=== PATIENT | female | born 1980 | race Caucasian/White ===

== ENCOUNTER 2022-11-15 19:52 | Inpatient (IN) | payer BC, SELFPAY ==
--- NOTE | 2022-11-15 21:14 | P.CONHOSP_ITS ---
History of Present Illness Data of Consult Service Date: 11/15/22 Primary Care Provider: Unknown Physician HPI Reason for consult: Admission H&P Pt is a 42-year-old female with a PMH significant for?breast cancer s/p lumpectomy, overactive bladder, HTN, PTSD, anxiety, and bipolar disorder who is admitted to psychiatry unit for increasing erratic behavior, paranoia, and disorganized thought.. Patient apparently was paranoid that her was working with her therapist to keep her sick. Medical consult for admission H&P. Patient states that she has a recent history of panic attacks where she feels chest tightness/pressure and her heart racing. Patient also says she experiences episodes of diarrhea she also attributes to periods of prolonged anxiety. Currently patient has no acute medical complaints. Denies shortness of breath. Fever, chills, nausea, vomiting, abdominal pain. Patient apparently is not on any known home medications. Review of Systems Review of Systems: Patient denies acute medical complaints at this time [facility] Social History Housing: House Do you presently have visiting nurse or other home services: No Patient Tobacco Use Status: Current everyday Tobacco user Tobacco use type: Cigarette Cigarette Packs Per Day: 1 Cigarettes Per Day: 20.0 Years Smoked: 10-15 Smoked in Last 30 Days: No e-Cigarette/Vaping Use: Currently Using Frequency of e-Cigarette/Vaping Use: daily 5% nicotine Patient Interested in Nicotine Replacement: Yes (doesn't like gum or lozenge) Patient Given Instructions on How to Stop Smoking: No (not interested in quitting the vape pen? No. Smoked cigs- pen lost) Second Hand Smoke Exposure: No Use of substances other than those prescribed or required for medical reasons: No Currently Displaying Signs/Symptoms of Drug Intoxication Withdrawal: No Any prior treatment program specific to substance use: No Have you been hit, kicked, punched, or otherwise hurt by someone within the past year? If so, by whom?: No Do you feel safe in your current relationship?: Yes Is there a partner from a previous relationship who is making you feel unsafe now?: No Are you made to feel afraid or neglected: No Advance Directives: No Advance Directives Information Provided: No Do you have thoughts of harming others: None Do you have a plan to hurt others: No Plan Recently lost weight without trying: No How much weight loss: Not applicable Eating poorly because of decreased appetite: No Nutrition screen score: 0 Nutrition Risks: No Nutritional Risk Patient : No : No Poor oral hygiene: No Meds Allergies Allergy/AdvReac Type Severity Reaction Status Date / Time bupropion [From Wellbutrin] Allergy Unknown Verified 11/15/22 23:35 Active Medications: Current Medications Acetaminophen (Acetaminophen 325 Mg Tablet) 650 mg PO Q6H PRN PRN Reason: Headache/Pain Mild Scale (1-3) Al Hydroxide/Mg Hydroxide (Magnesium Hydrox/Alum Hydrox 30 Ml Oral.Susp) 30 ml PO Q6H PRN PRN Reason: Heartburn/Nausea Hydroxyzine HCl (Hydroxyzine Hcl 25 Mg Tablet) 25 mg PO Q6H PRN PRN Reason: Anxiety Magnesium Hydroxide (Milk Of Magnesia 30 Ml Oral.Susp) 30 ml PO DAILY PRN PRN Reason: Constipation Olanzapine (Olanzapine 5 Mg Tablet) 5 mg PO Q4H PRN PRN Reason: Psychosis Trazodone HCl (Trazodone Hcl 50 Mg Tablet) 50 mg PO BEDTIME MRX1 PRN PRN Reason: Insomnia Home Medications Medication Instructions Recorded Confirmed Last Taken Type No Known Home Meds 11/15/22 11/15/22 Unknown History Physical Exam Vital Signs and Narrative: Vital Signs: Constitutional: Alert, anxious, emotionally labile in no acute distress. Mental Status: Oriented to person, place and time. Eyes: Pupils are equal, round, and reactive to light. Ear, Nose, and Throat: Oropharynx clear, mucous membranes moist. Ears and nose without deformities. Trachea midline. Respiratory: Clear to auscultation bilaterally. No wheezing, rales, or rhonchi. Cardiovascular: S1, S2 tachycardic. No murmurs, rubs, or gallops. Gastrointestinal: Abdomen soft, non-tender, non-distended. Normal bowel sounds. Neurologic: Cranial nerves II-XII are grossly intact bilaterally. No focal neurological deficits. Moves all extremities spontaneously. Skin: No rashes or lesions noted. Musculoskeletal: No cyanosis or clubbing. Extremities: No edema. Psychiatric: Anxious, emotionally labile. Results Labs 11/16/22 09:05 Assessment and Plan (1) Routine history and physical examination of adult: Status: Acute Plan Pt is a 42-year-old female with a PMH significant for?breast cancer s/p lumpectomy, overactive bladder, HTN, PTSD, anxiety, and bipolar disorder who is admitted to [facility] psychiatry unit for increasing depression and anxiety. Medical consult for admission H&P. Patient states that she has a recent history of panic attacks where she feels chest tightness/pressure and her heart racing. Patient also says she experiences episodes of diarrhea she also attributes to periods of prolonged anxiety. Currently patient has no acute medical complaints. Mood disorder Plan as per Psychiatry HTN Patient's initial BP 153/108, diastolic BP at [facility] also over 110 Will start patient amlodipine 5 mg daily Monitor BP Thank you for allowing us to participate in the care of this patient. Signing off at this time. Please let us know if there are any acute complaints or questions Time Spent With Patient Time: Total time managing care of this patient today ____ minutes.
[2022-11-15 21:56] VITALS: BMI 22.4
[2022-11-15] MEDS: traZODone HCL 50 MG TABLET PO (22:05)
--- NOTE | 2022-11-16 02:07 | PC.ADMIT ---
Yisel is a 42 year old female admitted to [facility] for safety, observation and stabilization, diagnosis Bipolar Disorder. She arrived on the unit on a CV at 2009 via stretcher in the company of EMT staff from [facility]. Yisel was assessed on 11/15/22 @[facility] ED after presenting self, stating I am in crisis. She struggled to engage w/staff & presented w/mumbled speech, DT presentation, and collateral contact w/pts sister & she was recommended for admission. Yisel denies the Bipolar diagnosis and has struggled to accept, DT this she has been resistant to meds & treatment. Yisel recently completed ECT on 10/29/22 & family reports she has been decompensating since, her relapse increased when she exhibited signs of paranoia on 11/13 beleiving that her was working with her therapist to keep her sick. Recently unemployed after being fired from [employer] due to not being able to keep up w/the demands of the business. Current risk factors include noncompliance with treatment, [facility] of [facility], non-adherence with medications, paranoia, & insomnia. She presents tonight alert/oriented, independent with ADL', ad-colleen with steady gait, disorganized, and paranoid, cooperative with the admission process, no scheduled HS meds, body audit/skin check completed, MD Sandoval notified of admission and orders obtained, hospitalist notified and physical assessment completed, no acute medical issues, denies SI, although stated passive, if this treatment doesn't work, I'll figure something out. verbalized that she is wiling to contact staff, feels safe on the unit, denies AVH/HI. Yisel was provided with a snack, oriented to the unit/assigned room, she called her sister, was given trazadone for insomnia, and went to bed. Yisel was placed on 15 min unit safety observation. Admission labs due morning of 11/16.
[2022-11-16 06:00] VITALS: BP 153/108; PULSE 108; RESP 18; TEMP 36.6; O2SAT 100
[2022-11-16 09:50] LABS: Alanine Aminotransferase 16 U/L (0-31); Albumin Level 4.3 g/dL (3.5-5.0); Alkaline Phosphatase 58 U/L (39-117); Anion Gap 14 (12-20); Aspartate Amino Transferase 19 U/L (5-31); Bilirubin Total 0.6 mg/dL (0.0-1.0); Blood Urea Nitrogen 7 mg/dL (9-16); Calcium 10.1 mg/dL (8.4-10.2); Carbon Dioxide 23 mmol/L (22-29); Chloride 109 mmol/L (96-108); Cholesterol 172 mg/dL; Creatinine Clr Calc Pharmacy 73.2; Estimated Glomerular Filt Rate > 60; Glucose Fasting 111 mg/dL (60-99); HDL Cholesterol 61 mg/dL; LDL Cholesterol Calculated 103 mg/dl; Potassium 3.8 mmol/L (3.3-5.1); Sodium 142 mmol/L (135-145); Total Protein 6.8 g/dL (6.5-8.0); Triglycerides 40 mg/dL
[2022-11-16 10:10] LABS: Estimated Average Glucose 77 mg/dL; Hemoglobin A1c % 4.3 %
--- NOTE | 2022-11-16 13:29 | P.HPPS_ITS ---
HPI Date of Service: 11/16/22 Chief Complaint: Bipolar Disorder Sources of Information: patient interviewed, chart reviewed and crisis/core team assessment reviewed Additional Sources of Information: -Kalyan HPI Subjective Notes: Goldstein Warning and 3 Day Narrative: Patient is a 42 year old female with hx of bipolar d/o who self presented to [facility] ER after calling 911 and reporting she was in crisis . When arrived to ER, pt struggled to engage with staff and presented with mumbled speech. Collateral was obtained from and sister. T/W and social work supervisor met with patient for admission assessment. Patient presents as calm and cooperative but tearful. She admits to drinking ETOH in excess. (5-6 beers a day); Patient stated, I don't think anything is wrong with me. I have unprocessed trauma and need CBT and DBT. I'm a co-dependent narcissist. Patient reports she has always been paranoid . Patient asked if there was a recording device in the room. Patient reports having suicidal ideation. Patient stated, I don't want to be given medication because I would take them all and try to sleep forever . Patient denies HI/VH/AH at this time. T/W spoke with patients (Kalyan). Per pt's (Kalyan); pt recently had [facility] at [facility], last of which was 10/29/22, he believes this contributed to her manic episode. He reports over the last 2 weeks patient has become paranoid and accusing her of conspiring with her therapist to keep her sick . He reports she has never attempted suicide but has always made suicidal statements. Patient has been psychiatrically hospitalized twice. Pt has a hx of bipolar d/o and has struggled to accept her dx; has been resistant to medications and treatment. Patient reports positive effects when patient was on lithium in the past. Past Psychiatric History: Hx of ketamine, ECT 10/2022 No suicide attempts. 2 inpatient hospitalizations. Medical Evaluation Reviewed: Yes PMF Family History: unknown Social History: for 20 years. No children. Substance History: ETOH use. Trauma History: Emotional trauma from parents Diagnostics Vital Signs (24Hr): Vital Signs - 24 hr 11/16/22 06:00 Temperature 97.8 F Pulse Rate 108 H Respiratory Rate 18 Blood Pressure 153/108 H Pulse Oximetry 100 Oxygen Delivery Method Room Air BMI result Body Mass Index 22.4 Labs 11/16/22 09:05 Labs: Laboratory Results - last 48 hr 11/16/22 11/16/22 09:05 09:05 Sodium 142 Potassium 3.8 Chloride 109 H Carbon Dioxide 23 Anion Gap 14 BUN 7 L Creatinine 0.74 Estim Creat Clear Calc 73.2 Estimated GFR > 60 Fasting Glucose 111 H Estimat Average Glucose 77 Hemoglobin A1c % 4.3 Calcium 10.1 Total Bilirubin 0.6 AST 19 ALT 16 Alkaline Phosphatase 58 Total Protein 6.8 Albumin 4.3 Triglycerides 40 Cholesterol 172 LDL Cholesterol, Calc 103 HDL Cholesterol 61 Meds/Allergies Meds Home Medications Medication Instructions Recorded Confirmed Type No Known Home Meds 11/15/22 11/15/22 History Allergies Allergies Allergy/AdvReac Type Severity Reaction Status Date / Time bupropion [From Wellbutrin] Allergy Unknown Verified 11/15/22 23:35 Mental Status Exam Mental Status Exam Narrative: Pt is alert and oriented; behavior is cooperative and calm; patient is not in distress; dressed in casual attire with good hygiene; mood is described as anxious ; eye contact appropriate; Speech is normal rate, volume and prosody and not pressured; no psychomotor agitation/retardation present; thought process is organized; Thought content is circumstantial; otherwise pertinent to relevant topics. Presents with paranoid delusional content; denies any HI. Reports suicidal ideation. There is no evidence of perceptual disturbance. Patients insight and judgment are poor. Assessment & Plan Assessment & Plan (1) Bipolar 1 disorder: Status: Acute Code(s): F31.9 - Bipolar disorder, unspecified Plan Patient is a 42 year old female with hx of bipolar d/o who self presented to [facility] ER after calling 911 and reporting she was in crisis . When arrived to ER, pt struggled to engage with staff and presented with mumbled speech. Collateral was obtained from and sister. Plan: 3 day 15 minute checks CIWA Obtain collateral Folic acid 1mg PO daily Multivitamin 1 tab PO daily Thiamine 100mg PO daily Ativan 0.5mg PO BID Zyprexa 5mg PO BID [place] 300mg PO BID (pt's reported lithium helpful in the past) Patient educated on: diagnosis, medication risk/benefits, substance abuse and therapeutic strategies Informed Consent: further education needed Reason for continued inpatient stay Substantial Risk for: harm to self and med/psych decompensation Statement Statement: I have reviewed the history and physical and performed a pertinent examination on my patient. No changes have occurred unless specified. If the History and Physical was not performed prior to admission, the Hospitalist's service will be consulted for completing the admission physical. Time Spent With Patient Time: Total time managing care of this patient today ____ minutes.
[2022-11-16 15:30] VITALS: BP 177/110; PULSE 106; RESP 18; O2SAT 99
[2022-11-16] MEDS: amLODIPine Besylate 5 MG TABLET PO (15:40)
[2022-11-16] MEDS: Multivitamin TABLET 1 TAB PO (15:47)
[2022-11-16] MEDS: Folic Acid 1 MG TABLET PO (15:47)
[2022-11-16] MEDS: LORazepam 0.5 MG TABLET PO ×2 (15:48→20:42)
[2022-11-16] MEDS: Thiamine HCL 100 MG TABLET PO (15:48)
--- NOTE | 2022-11-16 16:19 | PC.NURSE ---
Patient with elevated blood pressure. MARY Gee [employer] [facility] CASTILLO notified via tiger text.
[2022-11-16] MEDS: Lithium Carbonate ER 300 MG TABLET.ER PO ×2 (16:50→20:42)
[2022-11-16 16:59] VITALS: BP 163/98; PULSE 98; RESP 18
[2022-11-16] MEDS: Nicotine Polacrilex 2 MG GUM BUCCAL ×3 (18:29→22:23)
[2022-11-16] MEDS: Cariprazine HCl 1.5 MG CAPSULE PO (20:41)
[2022-11-16 20:50] VITALS: BP 146/104; PULSE 100; RESP 16; TEMP 36.2; O2SAT 99
[2022-11-16] MEDS: Loperamide HCl 2 MG CAPSULE PO (21:09)
[2022-11-16] MEDS: hydrOXYzine HCL 25 MG TABLET PO (21:09)
[2022-11-16] MEDS: Acetaminophen 325 MG TABLET 650 MG PO (22:28)
[2022-11-17] MEDS: LORazepam 0.5 MG TABLET PO ×2 (08:26→20:42)
[2022-11-17] MEDS: Lithium Carbonate ER 300 MG TABLET.ER PO (08:26)
[2022-11-17] MEDS: Folic Acid 1 MG TABLET PO (08:27)
[2022-11-17] MEDS: Multivitamin TABLET 1 TAB PO (08:27)
[2022-11-17] MEDS: amLODIPine Besylate 5 MG TABLET PO ×2 (08:27→13:32)
[2022-11-17] MEDS: Thiamine HCL 100 MG TABLET PO (08:27)
[2022-11-17] MEDS: Cariprazine HCl 1.5 MG CAPSULE PO (08:28)
[2022-11-17 08:30] VITALS: BP 177/101; PULSE 120; RESP 18; TEMP 36.4; O2SAT 97
[2022-11-17] MEDS: Nicotine Polacrilex 2 MG GUM BUCCAL ×2 (08:37→20:48)
[2022-11-17 10:30] VITALS: BP 161/104; RESP 18; O2SAT 110
--- NOTE | 2022-11-17 10:34 | P.PNPSI_ITS ---
Subjective Subjective Date of Service: 11/17/22 Reason For Visit: Bipolar Disorder Subjective Notes: Conditional Voluntary Interim History: Reviewed in team and with Dr. Obando. Patient presents tearful during 1:1. Patient continues to have circumstantial thought content and paranoid delusions. Patient stated, I feel like this place is a place to make people more assertive. I know that sounds delusional . Patient reports she want to live but knows if I have medications then I'll take them all . Patient reports she feels safe on the unit. Retracted 3 day. Medication Compliance: Yes Side effects from medications: No Attending Groups: Yes Review of Systems Review of Systems Patient denies acute medical complaints at this time Constitutional: Reports as per HPI Eyes: Reports as per HPI Reports as per HPI Cardiovascular: Reports as per HPI Respiratory: Reports as per HPI Gastrointestinal: Reports as per HPI Musculoskeletal: Reports as per HPI Skin/Breast: Reports as per HPI Reports as per HPI Psychiatric: Reports as per HPI Endocrine: Reports as per HPI Hematologic/Lymphatic: Reports as per HPI Allergic/Immunologic: Reports as per HPI Mental Status Exam Mental Status Exam Narrative: Pt is alert and oriented; behavior is cooperative and calm; patient is not in distress; dressed in casual attire with good hygiene; mood is described as anxious ; eye contact appropriate; Speech is normal rate, volume and prosody and not pressured; no psychomotor agitation/retardation present; thought process is organized; Thought content is circumstantial; otherwise pertinent to relevant topics. Presents with paranoid delusional content; denies any HI. Reports suicidal ideation. There is no evidence of perceptual disturbance. Patients insight and judgment are poor. Diagnostics Vital Signs (24Hr): Vital Signs - 24 hr 11/16/22 15:30 11/16/22 16:59 11/16/22 20:50 Temperature 97.1 F Pulse Rate 106 H 98 100 Respiratory Rate 18 18 16 Blood Pressure 177/110 H 163/98 H 146/104 H Pulse Oximetry 99 99 Oxygen Delivery Method Room Air Room Air BMI result Body Mass Index 22.4 Labs 11/16/22 09:05 Labs: Laboratory Results - last 48 hr 11/16/22 11/16/22 09:05 09:05 Sodium 142 Potassium 3.8 Chloride 109 H Carbon Dioxide 23 Anion Gap 14 BUN 7 L Creatinine 0.74 Estim Creat Clear Calc 73.2 Estimated GFR > 60 Fasting Glucose 111 H Estimat Average Glucose 77 Hemoglobin A1c % 4.3 Calcium 10.1 Total Bilirubin 0.6 AST 19 ALT 16 Alkaline Phosphatase 58 Total Protein 6.8 Albumin 4.3 Triglycerides 40 Cholesterol 172 LDL Cholesterol, Calc 103 HDL Cholesterol 61 Medications Medications Current Medications Acetaminophen (Acetaminophen 325 Mg Tablet) 650 mg PO Q6H PRN PRN Reason: Headache/Pain Mild Scale (1-3) Last Admin: 11/16/22 22:28 Dose: 650 mg Al Hydroxide/Mg Hydroxide (Magnesium Hydrox/Alum Hydrox 30 Ml Oral.Susp) 30 ml PO Q6H PRN PRN Reason: Heartburn/Nausea Amlodipine Besylate (Amlodipine Besylate 5 Mg Tablet) 5 mg PO DAILY [facility]; Protocol Last Admin: 11/17/22 08:27 Dose: 5 mg Cariprazine (Cariprazine Hcl 1.5 Mg Capsule) 1.5 mg PO DAILY [facility] Last Admin: 11/17/22 08:28 Dose: 1.5 mg Folic Acid (Folic Acid 1 Mg Tablet) 1 mg PO DAILY [facility] Last Admin: 11/17/22 08:27 Dose: 1 mg Hydroxyzine HCl (Hydroxyzine Hcl 25 Mg Tablet) 25 mg PO Q6H PRN PRN Reason: Anxiety Last Admin: 11/16/22 21:09 Dose: [address] [place] Carbonate ([place] Carbonate Er 300 Mg Tablet.Er) 300 mg PO BID [facility] Last Admin: 11/17/22 08:26 Dose: 300 mg Loperamide HCl (Loperamide Hcl 2 Mg Capsule) 2 mg PO Q4H PRN PRN Reason: Diarrhea Last Admin: 11/16/22 21:09 Dose: 2 mg Lorazepam (Lorazepam 0.5 Mg Tablet) 0.5 mg PO BID [facility] Last Admin: 11/17/22 08:26 Dose: 0.5 mg Magnesium Hydroxide (Milk Of Magnesia 30 Ml Oral.Susp) 30 ml PO DAILY PRN PRN Reason: Constipation Multivitamins/Vitamin C (Multivitamin Tablet) 1 tab PO DAILY [facility] Last Admin: 11/17/22 08:27 Dose: 1 tab Nicotine Polacrilex (Nicotine Polacrilex 2 Mg Gum) 2 mg BUCCAL Q2H PRN PRN Reason: Nicotine Cravings Last Admin: 11/17/22 08:37 Dose: 2 mg Nicotine Polacrilex (Nicotine Polacrilex Lozenge 4 Mg Lozenge) 4 mg BUCCAL Q2H PRN PRN Reason: Nicotine Cravings Thiamine HCl (Thiamine Hcl 100 Mg Tablet) 100 mg PO DAILY JAKE Last Admin: 11/17/22 08:27 Dose: 100 mg Trazodone HCl (Trazodone Hcl 50 Mg Tablet) 50 mg PO BEDTIME MRX1 PRN PRN Reason: Insomnia Last Admin: 11/15/22 22:05 Dose: 50 mg Allergies Allergies Allergy/AdvReac Type Severity Reaction Status Date / Time bupropion [From Wellbutrin] Allergy Unknown Verified 11/15/22 23:35 Assessment & Plan Assessment & Plan (1) Bipolar 1 disorder: Status: Acute Code(s): F31.9 - Bipolar disorder, unspecified Plan Patient is a 42 year old female with hx of bipolar d/o who self presented to [facility] ER after calling 911 and reporting she was in crisis . When arrived to ER, pt struggled to engage with staff and presented with mumbled speech. Collateral was obtained from and sister. Plan: CV 15 minute checks CIWA Obtain collateral Folic acid 1mg PO daily Multivitamin 1 tab PO daily Thiamine 100mg PO daily Ativan 0.5mg PO BID Increase: Vraylar 3mg PO daily [place] 450mg PO BID 11/17: Patient continues to have circumstantial thought content and paranoid delusions. Patient reports she want to live but knows if I have medications then I'll take them all . Patient reports she feels safe on the unit. Retracted 3 day. Will increase lithium and vraylar doses. Patient aware and is in agreement. Patient educated on: diagnosis, medication risk/benefits and therapeutic strategies Informed Consent: further education needed Reason for continued inpatient stay Substantial Risk for: harm to self and med/psych decompensation Time Spent With Patient Time: Total time managing care of this patient today ____ minutes.
[2022-11-17] MEDS: Nicotine Polacrilex Lozenge 4 MG LOZENGE BUCCAL (11:21)
--- NOTE | 2022-11-17 12:45 | P.EN_ITS ---
Documented by User: ANNA Walters 11/17/22 12:47 Event Note Date of Service: 11/17/22 Event Note: Patient's blood pressure continues to be elevated last reading this morning was 177/101. Patient will be given 5 mg amlodipine today, will increase amlodipine to 10 mg daily starting tomorrow. Patient states that she used to be on guanfacine and last took approximately in June when she was in [place]. Will continue with amlodipine for now. Will consider guanfacine if she remains hypertensive. Time Spent With Patient Time: Total time managing care of this patient today ____ minutes. Documented by User: Mary Kramer MD 11/17/22 16:21 Event Note Date of Service: 11/17/22
[2022-11-17 15:00] VITALS: BP 150/105; PULSE 114; RESP 18
[2022-11-17 20:19] VITALS: BP 140/105; PULSE 99; RESP 20; TEMP 36.9; O2SAT 97
[2022-11-17] MEDS: Lithium Carbonate ER 450 MG TABLET.ER PO (20:42)
[2022-11-18] MEDS: Nicotine Polacrilex 2 MG GUM BUCCAL (00:45)
[2022-11-18] MEDS: hydrOXYzine HCL 25 MG TABLET PO (01:33)
[2022-11-18] MEDS: traZODone HCL 50 MG TABLET PO ×3 (02:09→22:37)
[2022-11-18 08:31] VITALS: BP 133/103; PULSE 108; RESP 20; TEMP 36.7; O2SAT 100
[2022-11-18] MEDS: Folic Acid 1 MG TABLET PO (08:55)
[2022-11-18] MEDS: Cariprazine HCl 3 MG CAPSULE PO (08:55)
[2022-11-18] MEDS: Thiamine HCL 100 MG TABLET PO (08:55)
[2022-11-18] MEDS: Multivitamin TABLET 1 TAB PO (08:55)
[2022-11-18] MEDS: Lithium Carbonate ER 450 MG TABLET.ER PO (08:55)
[2022-11-18] MEDS: LORazepam 0.5 MG TABLET PO ×2 (08:56→20:52)
[2022-11-18] MEDS: amLODIPine Besylate 10 MG TABLET PO (08:56)
--- NOTE | 2022-11-18 09:48 | HO.PSYCHPN ---
Documented by User: Rebekah Gee NP 11/18/22 16:30 Subjective Subjective Date of Service: 11/18/22 Reason For Visit: Bipolar Disorder Subjective Notes: Conditional Voluntary Interim History: Reviewed in team and with Dr. Obando. Dr. Obando and T/W met with patient and sister today. Pt continues with racing thoughts and circumstantial thought content. Patient reports she understands why she needs to be in the hospital but I don't like to think I have bipolar d/o . Denies suicidal ideation at this time. Greenbriar to be increased to 600mg PO BID; patient aware. CIWA D/C'd d/t scoring low and no withdrawal symptoms. 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 with patients consent. Medication Compliance: Yes Side effects from medications: No Attending Groups: Yes Review of Systems Review of Systems Patient denies acute medical complaints at this time Constitutional: Reports as per HPI Eyes: Reports as per HPI Reports as per HPI Cardiovascular: Reports as per HPI Respiratory: Reports as per HPI Gastrointestinal: Reports as per HPI Genitourinary: Reports as per HPI Musculoskeletal: Reports as per HPI Skin/Breast: Reports as per HPI Reports as per HPI Psychiatric: Reports as per HPI Endocrine: Reports as per HPI Hematologic/Lymphatic: Reports as per HPI Allergic/Immunologic: Reports as per HPI Mental Status Exam Mental Status Exam Narrative: Pt is alert and oriented; behavior is cooperative and calm; patient is not in distress; dressed in casual attire with good hygiene; mood is described as anxious ; eye contact appropriate; Speech is normal rate, volume and prosody and not pressured; no psychomotor agitation/retardation present; thought process is organized; Thought content is circumstantial; otherwise pertinent to relevant topics. Presents with paranoid delusional content; denies any HI/SI. There is no evidence of perceptual disturbance. Patients insight and judgment are poor. Diagnostics Vital Signs (24Hr): Vital Signs - 24 hr 11/17/22 10:30 11/17/22 15:00 11/17/22 20:19 Temperature 98.4 F Pulse Rate 114 H 99 Respiratory Rate 18 18 20 Blood Pressure 161/104 H 150/105 H 140/105 H Pulse Oximetry 110 H 97 Oxygen Delivery Method Room Air 11/18/22 08:31 Temperature 98.1 F Pulse Rate 108 H Respiratory Rate 20 Blood Pressure 133/103 H Pulse Oximetry 100 Oxygen Delivery Method Room Air BMI result Body Mass Index 22.4 Labs 11/16/22 09:05 Labs: Laboratory Results - last 48 hr 11/16/22 11/16/22 09:05 09:05 Sodium 142 Potassium 3.8 Chloride 109 H Carbon Dioxide 23 Anion Gap 14 BUN 7 L Creatinine 0.74 Estim Creat Clear Calc 73.2 Estimated GFR > 60 Fasting Glucose 111 H Estimat Average Glucose 77 Hemoglobin A1c % 4.3 Calcium 10.1 Total Bilirubin 0.6 AST 19 ALT 16 Alkaline Phosphatase 58 Total Protein 6.8 Albumin 4.3 Triglycerides 40 Cholesterol 172 LDL Cholesterol, Calc 103 HDL Cholesterol 61 Medications Medications Current Medications Acetaminophen (Acetaminophen 325 Mg Tablet) 650 mg PO Q6H PRN PRN Reason: Headache/Pain Mild Scale (1-3) Last Admin: 11/16/22 22:28 Dose: 650 mg Al Hydroxide/Mg Hydroxide (Magnesium Hydrox/Alum Hydrox 30 Ml Oral.Susp) 30 ml PO Q6H PRN PRN Reason: Heartburn/Nausea Amlodipine Besylate (Amlodipine Besylate 10 Mg Tablet) 10 mg PO DAILY [facility]; Protocol Last Admin: 11/18/22 08:56 Dose: 10 mg Cariprazine (Cariprazine Hcl 3 Mg Capsule) 3 mg PO DAILY [facility] Last Admin: 11/18/22 08:55 Dose: 3 mg Folic Acid (Folic Acid 1 Mg Tablet) 1 mg PO DAILY [facility] Last Admin: 11/18/22 08:55 Dose: 1 mg Hydroxyzine HCl (Hydroxyzine Hcl 25 Mg Tablet) 25 mg PO Q6H PRN PRN Reason: Anxiety Last Admin: 11/18/22 01:33 Dose: 25 mg [place] Carbonate ([place] Carbonate Er 450 Mg Tablet.Er) 450 mg PO BID [facility] Last Admin: 11/18/22 08:55 Dose: 450 mg Loperamide HCl (Loperamide Hcl 2 Mg Capsule) 2 mg PO Q4H PRN PRN Reason: Diarrhea Last Admin: 11/16/22 21:09 Dose: 2 mg Lorazepam (Lorazepam 0.5 Mg Tablet) 0.5 mg PO BID [facility] Last Admin: 11/18/22 08:56 Dose: 0.5 mg Magnesium Hydroxide (Milk Of Magnesia 30 Ml Oral.Susp) 30 ml PO DAILY PRN PRN Reason: Constipation Multivitamins/Vitamin C (Multivitamin Tablet) 1 tab PO DAILY [facility] Last Admin: 11/18/22 08:55 Dose: 1 tab Nicotine Polacrilex (Nicotine Polacrilex 2 Mg Gum) 2 mg BUCCAL Q2H PRN PRN Reason: Nicotine Cravings Last Admin: 11/18/22 00:45 Dose: 2 mg Nicotine Polacrilex (Nicotine Polacrilex Lozenge 4 Mg Lozenge) 4 mg BUCCAL Q2H PRN PRN Reason: Nicotine Cravings Last Admin: 11/17/22 11:21 Dose: 4 mg Thiamine HCl (Thiamine Hcl 100 Mg Tablet) 100 mg PO DAILY [facility] Last Admin: 11/18/22 08:55 Dose: 100 mg Trazodone HCl (Trazodone Hcl 50 Mg Tablet) 50 mg PO BEDTIME MRX1 PRN PRN Reason: Insomnia Last Admin: 11/18/22 02:09 Dose: 50 mg Allergies Allergies Allergy/AdvReac Type Severity Reaction Status Date / Time bupropion [From Wellbutrin] Allergy Unknown Verified 11/15/22 23:35 Assessment & Plan Assessment & Plan (1) Bipolar 1 disorder: Status: Acute Code(s): F31.9 - Bipolar disorder, unspecified Plan Patient is a 42 year old female with hx of bipolar d/o who self presented to [facility] ER after calling 911 and reporting she was in crisis . When arrived to ER, pt struggled to engage with staff and presented with mumbled speech. Collateral was obtained from and sister. Plan: CV 15 minute checks Obtain collateral Ativan 0.5mg PO BID Vraylar 3mg PO daily Increase: Greenbriar 600mg PO BID DC: Folic acid 1mg PO daily Multivitamin 1 tab PO daily Thiamine 100mg PO daily CIWA 11/17: Patient continues to have circumstantial thought content and paranoid delusions. Patient reports she want to live but knows if I have medications then I'll take them all . Patient reports she feels safe on the unit. Retracted 3 day. Will increase lithium and vraylar doses. Patient aware and is in agreement. 11/18: Dr. Obando and T/W met with patient and sister today. Pt continues with racing thoughts and circumstantial thought content. Denies suicidal ideation. [place]briar to be increased to 600mg PO BID; patient aware. CIWA D/C'd d/t scoring low and no withdrawal symptoms. 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 Patient educated on: diagnosis, medication risk/benefits, substance abuse and therapeutic strategies Guardian/Caregiver educated on: diagnosis, medication risk/benefits, substance abuse and therapeutic strategies Informed Consent: further education needed Reason for continued inpatient stay Substantial Risk for: med/psych decompensation Time Spent With Patient Time: Total time managing care of this patient today ____ minutes. Documented by User: Gordon Obando MD 11/18/22 21:27 Subjective Subjective Reason For Visit: Bipolar Disorder Diagnostics Labs 11/16/22 09:05 Assessment & Plan Assessment & Plan (1) Bipolar 1 disorder: Status: Acute Code(s): F31.9 - Bipolar disorder, unspecified Plan Patient is a 42 year old female with hx of bipolar d/o who self presented to [facility] ER after calling 911 and reporting she was in crisis . When arrived to ER, pt struggled to engage with staff and presented with mumbled speech. Collateral was obtained from and sister. Plan: CV 15 minute checks Obtain collateral Ativan 0.5mg PO BID Vraylar 3mg PO daily Increase: [place] 600mg PO BID DC: Folic acid 1mg PO daily Multivitamin 1 tab PO daily Thiamine 100mg PO daily CIWA 11/17: Patient continues to have circumstantial thought content and paranoid delusions. Patient reports she want to live but knows if I have medications then I'll take them all . Patient reports she feels safe on the unit. Retracted 3 day. Will increase lithium and vraylar doses. Patient aware and is in agreement. 11/18: Dr. Obando and T/W met with patient and sister today. Pt continues with racing thoughts and circumstantial thought content. Denies suicidal ideation. Greenbriar to be increased to 600mg PO BID; patient aware. CIWA D/C'd d/t scoring low and no withdrawal symptoms. 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 Reason for continued inpatient stay Substantial Risk for: inability to function and rapid decompensation Time Spent With Patient Time: Total time managing care of this patient today _35___ minutes.
[2022-11-18 10:01] VITALS: BP 144/108; PULSE 115
--- NOTE | 2022-11-18 10:01 | PC.NURSE ---
Patients recheck of Blood pressure after morning atihypertensive was 144/108 with a HR of 115. Rebekah Gee notified. Rebekah had this RN notify [facility]. No new orders at this time.
[2022-11-18 11:31] VITALS: BMI 22.0
[2022-11-18 12:25] VITALS: BP 135/90; PULSE 99
--- NOTE | 2022-11-18 12:37 | PM.EVENT ---
Event Note Date of Service: 11/18/22 Event Note: Blood pressure more controlled on my exam at 135/90, HR 99. She has been anxious/aggitated and was previously taking guanfacine for primary management of ADD which does also help BP. At this time, blood pressure is reasonably controlled, patient is asymptomatic, and further management of anxiety/aggitation should be pursued as this will help lower her blood pressure. No further antihypertensive management advised at this time. Continue amlodipine 10mg. Continue working on coping strategies and distraction techniques. Outpt follow up should be pursued as well. Should also follow up with [facility] for management of perimenopause which could be contirbutory as well. Please reach out if further questions, will check blood pressures. Time Spent With Patient Time: Total time managing care of this patient today ____ minutes.
[2022-11-18] MEDS: Nicotine Polacrilex Lozenge 4 MG LOZENGE BUCCAL ×3 (13:08→22:37)
[2022-11-18] MEDS: Lithium Carbonate 300 MG TABLET PO (14:34)
[2022-11-18 15:54] VITALS: BP 176/110; PULSE 123
[2022-11-18] MEDS: Acetaminophen 325 MG TABLET 650 MG PO (17:07)
[2022-11-18 19:21] VITALS: BP 150/98; PULSE 110; RESP 18; TEMP 36.1; O2SAT 100
[2022-11-18] MEDS: Lithium Carbonate ER 300 MG TABLET.ER PO (20:52)
[2022-11-18 22:35] VITALS: BP 156/108; PULSE 106
[2022-11-18] MEDS: Magnesium Hydrox/Alum Hydrox 30 ML ORAL.SUSP PO (22:40)
[2022-11-19] MEDS: Nicotine Polacrilex Lozenge 4 MG LOZENGE BUCCAL ×3 (02:26→17:49)
[2022-11-19] MEDS: traZODone HCL 100 MG TABLET PO (03:18)
[2022-11-19 06:00] VITALS: BP 132/86; PULSE 83; RESP 16; TEMP 36.2; O2SAT 100
[2022-11-19] MEDS: Cariprazine HCl 3 MG CAPSULE PO (08:30)
[2022-11-19] MEDS: amLODIPine Besylate 10 MG TABLET PO (08:30)
[2022-11-19] MEDS: Lithium Carbonate ER 300 MG TABLET.ER 600 MG PO ×2 (08:30→20:49)
[2022-11-19] MEDS: LORazepam 0.5 MG TABLET PO ×2 (08:30→20:48)
--- NOTE | 2022-11-19 10:50 | HO.PSYCHPN ---
Documented by User: Rebekah Gee NP 11/19/22 16:51 Subjective Subjective Date of Service: 11/19/22 Reason For Visit: Bipolar Disorder Subjective Notes: 3 Day Interim History: Reviewed in team and with Dr. Obando. Pt continues with racing thoughts and circumstantial thought content. Patient reports she not sleeping well at night. Patient comparing her life to the Book of [employer]. Patient signed 3 day last night; stated, if I don't feel better on Tuesday then I'll retract it and stay longer . Medication Compliance: Yes Side effects from medications: No Attending Groups: Yes Review of Systems Review of Systems Patient denies acute medical complaints at this time Constitutional: Reports as per HPI Eyes: Reports as per HPI Reports as per HPI Cardiovascular: Reports as per HPI Respiratory: Reports as per HPI Gastrointestinal: Reports as per HPI Genitourinary: Reports as per HPI Musculoskeletal: Reports as per HPI Skin/Breast: Reports as per HPI Reports as per HPI Psychiatric: Reports as per HPI Endocrine: Reports as per HPI Hematologic/Lymphatic: Reports as per HPI Allergic/Immunologic: Reports as per HPI Mental Status Exam Mental Status Exam Narrative: Pt is alert and oriented; behavior is cooperative and calm; patient is not in distress; dressed in casual attire with good hygiene; mood is described as anxious ; eye contact appropriate; Speech is normal rate, volume and prosody and not pressured; no psychomotor agitation/retardation present; thought process is organized; Thought content is circumstantial; otherwise pertinent to relevant topics. Presents with paranoid delusional content; denies any HI/SI. There is no evidence of perceptual disturbance. Patients insight and judgment are poor. Diagnostics Vital Signs (24Hr): Vital Signs - 24 hr 11/18/22 12:25 11/18/22 15:54 11/18/22 19:21 Temperature 97.0 F Pulse Rate 99 123 H 110 H Respiratory Rate 18 Blood Pressure 135/90 H 176/110 H 150/98 H Pulse Oximetry 100 Oxygen Delivery Method Room Air 11/18/22 22:35 11/19/22 06:00 Temperature 97.1 F Pulse Rate 106 H 83 Respiratory Rate 16 Blood Pressure 156/108 H 132/86 Pulse Oximetry 100 Oxygen Delivery Method Room Air BMI result Body Mass Index 22.0 Labs 11/16/22 09:05 Medications Medications Current Medications Acetaminophen (Acetaminophen 325 Mg Tablet) 650 mg PO Q6H PRN PRN Reason: Headache/Pain Mild Scale (1-3) Last Admin: 11/18/22 17:07 Dose: 650 mg Al Hydroxide/Mg Hydroxide (Magnesium Hydrox/Alum Hydrox 30 Ml Oral.Susp) 30 ml PO Q6H PRN PRN Reason: Heartburn/Nausea Last Admin: 11/18/22 22:40 Dose: 30 ml Amlodipine Besylate (Amlodipine Besylate 10 Mg Tablet) 10 mg PO DAILY [facility]; Protocol Last Admin: 11/19/22 08:30 Dose: 10 mg Cariprazine (Cariprazine Hcl 3 Mg Capsule) 3 mg PO DAILY [facility] Last Admin: 11/19/22 08:30 Dose: 3 mg [place] Carbonate ([place] Carbonate Er 300 Mg Tablet.Er) 600 mg PO BID [facility] Last Admin: 11/19/22 08:30 Dose: 600 mg Lorazepam (Lorazepam 0.5 Mg Tablet) 0.5 mg PO BID [facility] Last Admin: 11/19/22 08:30 Dose: 0.5 mg Magnesium Hydroxide (Milk Of Magnesia 30 Ml Oral.Susp) 30 ml PO DAILY PRN PRN Reason: Constipation Nicotine Polacrilex (Nicotine Polacrilex Lozenge 4 Mg Lozenge) 4 mg BUCCAL Q2H PRN PRN Reason: Nicotine Cravings Last Admin: 11/19/22 02:26 Dose: 2 mg Trazodone HCl (Trazodone Hcl 50 Mg Tablet) 50 mg PO BEDTIME MRX1 PRN PRN Reason: Insomnia Last Admin: 11/18/22 22:37 Dose: 50 mg Allergies Allergies Allergy/AdvReac Type Severity Reaction Status Date / Time bupropion [From Wellbutrin] Allergy Unknown Verified 11/15/22 23:35 Assessment & Plan Assessment & Plan (1) Bipolar 1 disorder: Status: Acute Code(s): F31.9 - Bipolar disorder, unspecified Plan Patient is a 42 year old female with hx of bipolar d/o who self presented to [facility] ER after calling 911 and reporting she was in crisis . When arrived to ER, pt struggled to engage with staff and presented with mumbled speech. Collateral was obtained from and sister. Plan: 3 day 15 minute checks Obtain collateral Ativan 0.5mg PO BID Vraylar 3mg PO daily [place] 600mg PO BID Start: Seroquel 25mg PO bedtime Seroquel 25mg PO PRN insomnia, if scheduled dose is ineffective. 11/17: Patient continues to have circumstantial thought content and paranoid delusions. Patient reports she want to live but knows if I have medications then I'll take them all . Patient reports she feels safe on the unit. Retracted 3 day. Will increase lithium and vraylar doses. Patient aware and is in agreement. 11/18: Dr. Obando and T/W met with patient and sister today. Pt continues with racing thoughts and circumstantial thought content. Denies suicidal ideation. [place] to be increased to 600mg PO BID; patient aware. CIWA D/C'd d/t scoring low and no withdrawal symptoms. family services worker to obtain records from [facility] with patients consent. 11/19: Patient reports difficulty sleeping. Continues with rapid speech, racing thoughts and circumstantial thought content. Signed 3 day last night, Patient reports she will retract on Tuesday if I don't feel better . Will add Seroquel at bedtime for sleep. Patient educated on: diagnosis, medication risk/benefits and therapeutic strategies Informed Consent: understands Reason for continued inpatient stay Substantial Risk for: med/psych decompensation Time Spent With Patient Time: Total time managing care of this patient today ____ minutes. Documented by User: Gordon Obando MD 11/19/22 23:52 Subjective Subjective Reason For Visit: Bipolar Disorder Diagnostics Labs 11/16/22 09:05 Assessment & Plan Assessment & Plan (1) Bipolar 1 disorder: Status: Acute Code(s): F31.9 - Bipolar disorder, unspecified Plan Patient is a 42 year old female with hx of bipolar d/o who self presented to [facility] ER after calling 911 and reporting she was in crisis . When arrived to ER, pt struggled to engage with staff and presented with mumbled speech. Collateral was obtained from and sister. Plan: 3 day 15 minute checks Obtain collateral Ativan 0.5mg PO BID Vraylar 3mg PO daily [place] 600mg PO BID Start: Seroquel 25mg PO bedtime Seroquel 25mg PO PRN insomnia, if scheduled dose is ineffective. 11/17: Patient continues to have circumstantial thought content and paranoid delusions. Patient reports she want to live but knows if I have medications then I'll take them all . Patient reports she feels safe on the unit. Retracted 3 day. Will increase lithium and vraylar doses. Patient aware and is in agreement. 11/18: Dr. Obando and T/W met with patient and sister today. Pt continues with racing thoughts and circumstantial thought content. Denies suicidal ideation. [place] to be increased to 600mg PO BID; patient aware. SARAWA D/C'd d/t scoring low and no withdrawal symptoms. family services worker to obtain records from [facility] and [facility] with patients consent. 11/19: Patient reports difficulty sleeping. Continues with rapid speech, racing thoughts and circumstantial thought content. Signed 3 day last night, Patient reports she will retract on Tuesday if I don't feel better . Will add Seroquel at bedtime for sleep. seroquel added for insomnia monitor bp watch for s/e confusion with amlodipine lithium monitor creat watch for edema
[2022-11-19 14:14] VITALS: BP 139/93; PULSE 102; RESP 16; O2SAT 99
[2022-11-19 16:21] VITALS: BP 135/95; PULSE 100; RESP 16; O2SAT 100
[2022-11-19 19:50] VITALS: BP 141/86; PULSE 109; RESP 18; TEMP 36.6; O2SAT 99
[2022-11-19] MEDS: QUEtiapine Fumarate 25 MG TABLET PO (20:48)
[2022-11-20] MEDS: traZODone HCL 50 MG TABLET PO ×4 (00:50→23:35)
[2022-11-20] MEDS: Acetaminophen 325 MG TABLET 650 MG PO (08:39)
[2022-11-20] MEDS: amLODIPine Besylate 10 MG TABLET PO (08:40)
[2022-11-20] MEDS: Cariprazine HCl 3 MG CAPSULE PO (08:40)
[2022-11-20] MEDS: Lithium Carbonate ER 300 MG TABLET.ER 600 MG PO ×2 (08:40→20:43)
[2022-11-20] MEDS: LORazepam 0.5 MG TABLET PO ×2 (08:40→20:43)
[2022-11-20 09:00] VITALS: BP 118/82; PULSE 100; RESP 20; TEMP 36.4; O2SAT 98
--- NOTE | 2022-11-20 12:42 | PM.EVENT ---
Event Note Date of Service: 11/20/22 Event Note: Blood pressures improved. Continue amlodipine 10mg daily. Continue working on anxiety management per psychaitry. Signing off at this time. Please do not hesitate to reach out for further questions. Time Spent With Patient Time: Total time managing care of this patient today ____ minutes.
[2022-11-20 13:00] VITALS: BP 140/90; PULSE 97
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
[2022-11-20] MEDS: cloNIDine HCL 0.1 MG TABLET PO (18:04)
[2022-11-20 20:10] VITALS: BP 119/87; PULSE 93; RESP 18; TEMP 36.9; O2SAT 100
[2022-11-20] MEDS: QUEtiapine Fumarate 25 MG TABLET PO ×2 (20:43→23:35)
[2022-11-21 02:09] VITALS: BP 124/84; PULSE 94; O2SAT 100
[2022-11-21] MEDS: cloNIDine HCL 0.1 MG TABLET PO ×2 (02:10→12:23)
[2022-11-21 07:59] VITALS: BP 140/89; PULSE 91; TEMP 36.6; O2SAT 100
[2022-11-21] MEDS: Lithium Carbonate ER 300 MG TABLET.ER 600 MG PO ×2 (08:11→21:13)
[2022-11-21] MEDS: amLODIPine Besylate 10 MG TABLET PO (08:11)
[2022-11-21] MEDS: LORazepam 0.5 MG TABLET PO (08:11)
[2022-11-21] MEDS: Cariprazine HCl 3 MG CAPSULE PO (08:11)
[2022-11-21 13:00] VITALS: BP 130/85; PULSE 110
--- NOTE | 2022-11-21 14:01 | HO.PSYCHPN ---
Subjective Subjective Date of Service: 11/21/22 Reason For Visit: Bipolar Disorder Subjective Notes: 3 Day Medical Problems Affecting Mental Status: No Interim History: met with patient. Discussed with Nursing. Chart reviewed. Irritable. Difficulty with med adherence- took 15 minutes last night, kept taking out of mouth. Appeared paranoid. With expert medical writer also paranoid. Stated her was on [place] unit from [place] and still part of a clinical trial and technology/computers altering things on the unit. Discussed past meds and current regimen- still declining any dose or med changes. Still not wanting to change legal status i.e. wants to maintain three-day notice. Also does not want medication changes. Medication Compliance: Intermittent Side effects from medications: No Attending Groups: Yes Review of Systems Acute medical concerns: No Review of Systems Review of Systems Unremarkable Mental Status Exam Mental Status Exam Narrative: Pt is alert and oriented; behavior is cooperative and calm; patient is not in distress; dressed in casual attire with good hygiene; mood is described as anxious ; eye contact appropriate; Speech is pressured; no psychomotor agitation/retardation present; thought process is tangential; thought content was focused on feeling unsafe. Presents with paranoid delusional content; denies any HI/SI. There is no evidence of perceptual disturbance. Patients insight and judgment are poor. Diagnostics Vital Signs (24Hr): Vital Signs - 24 hr 11/20/22 20:10 11/21/22 02:09 11/21/22 07:59 Temperature 98.4 F 97.9 F Pulse Rate 93 94 91 Respiratory Rate 18 Blood Pressure 119/87 124/84 140/89 H Pulse Oximetry 100 100 100 Oxygen Delivery Method Room Air Room Air Room Air 11/21/22 13:00 Temperature Pulse Rate 110 H Respiratory Rate Blood Pressure 130/85 Pulse Oximetry Oxygen Delivery Method BMI result Body Mass Index 22.0 Labs 11/16/22 09:05 Medications Medications Current Medications Acetaminophen (Acetaminophen 325 Mg Tablet) 650 mg PO Q6H PRN PRN Reason: Headache/Pain Mild Scale (1-3) Last Admin: 11/20/22 08:39 Dose: 650 mg Al Hydroxide/Mg Hydroxide (Magnesium Hydrox/Alum Hydrox 30 Ml Oral.Susp) 30 ml PO Q6H PRN PRN Reason: Heartburn/Nausea Last Admin: 11/18/22 22:40 Dose: 30 ml Amlodipine Besylate (Amlodipine Besylate 10 Mg Tablet) 10 mg PO DAILY JAKE; Protocol Last Admin: 11/21/22 08:11 Dose: 10 mg Cariprazine (Cariprazine Hcl 3 Mg Capsule) 3 mg PO DAILY JAKE Last Admin: 11/21/22 08:11 Dose: 3 mg Clonidine HCl (Clonidine Hcl 0.1 Mg Tablet) 0.1 mg PO TID PRN; Protocol PRN Reason: Anxiety Last Admin: 11/21/22 12:23 Dose: 0.1 mg Estelle Carbonate (Estelle Carbonate Er 300 Mg Tablet.Er) 600 mg PO BID JAKE Last Admin: 11/21/22 08:11 Dose: 600 mg Magnesium Hydroxide (Milk Of Magnesia 30 Ml Oral.Susp) 30 ml PO DAILY PRN PRN Reason: Constipation Nicotine Polacrilex (Nicotine Polacrilex Lozenge 4 Mg Lozenge) 4 mg BUCCAL Q2H PRN PRN Reason: Nicotine Cravings Last Admin: 11/19/22 17:49 Dose: 4 mg Quetiapine Fumarate (Quetiapine Fumarate 25 Mg Tablet) 25 mg PO BEDTIME JAKE Last Admin: 11/20/22 20:43 Dose: 25 mg Quetiapine Fumarate (Quetiapine Fumarate 25 Mg Tablet) 25 mg PO BEDTIME PRN PRN Reason: Insomnia Last Admin: 11/20/22 23:35 Dose: 25 mg Trazodone HCl (Trazodone Hcl 50 Mg Tablet) 50 mg PO BEDTIME MRX1 PRN PRN Reason: Insomnia Last Admin: 11/20/22 23:35 Dose: 50 mg Allergies Allergies Allergy/AdvReac Type Severity Reaction Status Date / Time bupropion [From Wellbutrin] Allergy Unknown Verified 11/15/22 23:35 Assessment & Plan Assessment & Plan (1) Bipolar 1 disorder: Status: Acute Code(s): F31.9 - Bipolar disorder, unspecified Plan Patient is a 42 year old female with hx of bipolar d/o who self presented to [facility] ER after calling 911 and reporting she was in crisis . When arrived to ER, pt struggled to engage with staff and presented with mumbled speech. Collateral was obtained from and sister. Plan: 3 day 15 minute checks Obtain collateral Ativan 0.5mg PO BID Vraylar 3mg PO daily Estelle 600mg PO BID Start: Seroquel 25mg PO bedtime Seroquel 25mg PO PRN insomnia, if scheduled dose is ineffective. 11/17: Patient continues to have circumstantial thought content and paranoid delusions. Patient reports she want to live but knows if I have medications then I'll take them all . Patient reports she feels safe on the unit. Retracted 3 day. Will increase lithium and vraylar doses. Patient aware and is in agreement. 11/18: Dr. Obando and T/W met with patient and sister today. Pt continues with racing thoughts and circumstantial thought content. Denies suicidal ideation. Estelle to be increased to 600mg PO BID; patient aware. CIWA D/C'd d/t scoring low and no withdrawal symptoms. paper and pulp mill worker to obtain records from [facility] with patients consent. 11/19: Patient reports difficulty sleeping. Continues with rapid speech, racing thoughts and circumstantial thought content. Signed 3 day last night, Patient reports she will retract on Tuesday if I don't feel better . Will add Seroquel at bedtime for sleep. seroquel added for insomnia monitor bp watch for s/e confusion with amlodipine lithium monitor creat watch for edema 11/20/2022: No changes to current treatment regimen as Seroquel just added and patient declining any other changes 11/21/22: no changes- encourage current meds Reason for continued inpatient stay Substantial Risk for: inability to function Time Spent With Patient Time: Total time managing care of this patient today ____ minutes.
--- NOTE | 2022-11-21 18:48 | PC.NURSE ---
Pt appears more disorganized and confused than yesterday. Pt unmade roommates bed and was moving belongings around the room. Pt placed her dinner tray on peers desk and also dumped trash/belongings in the middle of the floor in front of the bathroom. When approached pt is overwhelmed and can't explain or speak only saying It's my ADHD under control. Pt placing laudry bins in random places in the hallway, carrying her belongings around with here. to be notified to review medications.
[2022-11-21 20:35] VITALS: BP 131/93; PULSE 107; RESP 18; TEMP 36.6
[2022-11-21] MEDS: traZODone HCL 50 MG TABLET PO (21:13)
--- NOTE | 2022-11-21 22:10 | PC.NURSE ---
Pt has been increasingly confused throughout the day. Observed attempting to go into other pt's rooms. Provider automobile club information clerk notified, pt placed on 5 min checks with unlocked bathroom.
[2022-11-22] MEDS: Cariprazine HCl 3 MG CAPSULE PO (08:32)
[2022-11-22] MEDS: amLODIPine Besylate 10 MG TABLET PO (08:32)
[2022-11-22] MEDS: Lithium Carbonate ER 300 MG TABLET.ER 600 MG PO ×2 (08:33→21:40)
[2022-11-22 08:56] VITALS: BP 137/95; PULSE 112; RESP 16; TEMP 36.6; O2SAT 100
--- NOTE | 2022-11-22 09:52 | P.PNPSI_ITS ---
Subjective Subjective Date of Service: 11/22/22 Reason For Visit: Bipolar Disorder Subjective Notes: Conditional Voluntary Interim History: Reviewed in team and with Dr. Moore. Patient presents worsening in symptoms since Tuesday. Increased disorganization and paranoia; patient reports she has not slept. Patient worried that microphones are listening. Would only speak to T/W in her bathroom. Was placed on 1:1 d/t wandering into other patients rooms; believes her is on the unit. Ordered Ativan 2mg PO once, pt slept for 2.5 hours then woke up; Was then given Seroquel 50mg PO once; waiting on results. Patient retracted 3 day. Labs ordered, lithium level 0.83. Potassium 3.1; ordered hospitalist consult. UA pending. Medication Compliance: Yes Side effects from medications: No Attending Groups: No Review of Systems Constitutional: Reports as per HPI Eyes: Reports as per HPI Reports as per HPI Cardiovascular: Reports as per HPI Respiratory: Reports as per HPI Gastrointestinal: Reports as per HPI Genitourinary: Reports as per HPI Musculoskeletal: Reports as per HPI Skin/Breast: Reports as per HPI Reports as per HPI Psychiatric: Reports as per HPI Endocrine: Reports as per HPI Hematologic/Lymphatic: Reports as per HPI Allergic/Immunologic: Reports as per HPI Mental Status Exam Mental Status Exam Narrative: Pt is alert and oriented; behavior is cooperative and calm; patient is not in distress; dressed in casual attire; mood is described as anxious ; eye contact appropriate; Speech is rapid, pressured; no psychomotor agitation/retardation present; thought process is disorganized; Thought content is circumstantial; Presents with paranoid delusional content; denies any HI/SI. There is no evidence of perceptual disturbance. Patients insight and judgment are poor. Diagnostics Vital Signs (24Hr): Vital Signs - 24 hr 11/21/22 13:00 11/21/22 20:35 11/22/22 08:56 Temperature 97.8 F 97.8 F Pulse Rate 110 H 107 H 112 H Respiratory Rate 18 16 Blood Pressure 130/85 131/93 H 137/95 H Pulse Oximetry 100 Oxygen Delivery Method Room Air Room Air BMI result Body Mass Index 22.0 Labs 11/16/22 09:05 Labs: Laboratory Results - last 48 hr 11/22/22 09:18 [place] 0.83 Medications Medications Current Medications Acetaminophen (Acetaminophen 325 Mg Tablet) 650 mg PO Q6H PRN PRN Reason: Headache/Pain Mild Scale (1-3) Last Admin: 11/20/22 08:39 Dose: 650 mg Al Hydroxide/Mg Hydroxide (Magnesium Hydrox/Alum Hydrox 30 Ml Oral.Susp) 30 ml PO Q6H PRN PRN Reason: Heartburn/Nausea Last Admin: 11/18/22 22:40 Dose: 30 ml Amlodipine Besylate (Amlodipine Besylate 10 Mg Tablet) 10 mg PO DAILY JAKE; Protocol Last Admin: 11/22/22 08:32 Dose: 10 mg Cariprazine (Cariprazine Hcl 3 Mg Capsule) 3 mg PO DAILY JAKE Last Admin: 11/22/22 08:32 Dose: 3 mg Clonidine HCl (Clonidine Hcl 0.1 Mg Tablet) 0.1 mg PO TID PRN; Protocol PRN Reason: Anxiety Last Admin: 11/21/22 12:23 Dose: 0.1 mg [place] Carbonate ([place] Carbonate Er 300 Mg Tablet.Er) 600 mg PO BID JAKE Last Admin: 11/22/22 08:33 Dose: 600 mg Magnesium Hydroxide (Milk Of Magnesia 30 Ml Oral.Susp) 30 ml PO DAILY PRN PRN Reason: Constipation Nicotine Polacrilex (Nicotine Polacrilex Lozenge 4 Mg Lozenge) 4 mg BUCCAL Q2H PRN PRN Reason: Nicotine Cravings Last Admin: 11/19/22 17:49 Dose: 4 mg Quetiapine Fumarate (Quetiapine Fumarate 25 Mg Tablet) 25 mg PO BEDTIME JAKE Last Admin: 11/21/22 21:15 Dose: Not Given Quetiapine Fumarate (Quetiapine Fumarate 25 Mg Tablet) 25 mg PO BEDTIME PRN PRN Reason: Insomnia Last Admin: 11/20/22 23:35 Dose: 25 mg Trazodone HCl (Trazodone Hcl 50 Mg Tablet) 50 mg PO BEDTIME MRX1 PRN PRN Reason: Insomnia Last Admin: 11/21/22 21:13 Dose: 50 mg Allergies Allergies Allergy/AdvReac Type Severity Reaction Status Date / Time bupropion [From Wellbutrin] Allergy Unknown Verified 11/15/22 23:35 Assessment & Plan Assessment & Plan (1) Bipolar 1 disorder: Status: Acute Code(s): F31.9 - Bipolar disorder, unspecified Plan Patient is a 42 year old female with hx of bipolar d/o who self presented to [facility] ER after calling 911 and reporting she was in crisis . When arrived to ER, pt struggled to engage with staff and presented with mumbled speech. Collateral was obtained from and sister. Plan: CV 1:1 Obtain collateral Ativan 0.5mg PO BID Vraylar 3mg PO daily [place] 600mg PO BID Seroquel 25mg PO bedtime Seroquel 25mg PO PRN insomnia, if scheduled dose is ineffective. 11/17: Patient continues to have circumstantial thought content and paranoid delusions. Patient reports she want to live but knows if I have medications then I'll take them all . Patient reports she feels safe on the unit. Retracted 3 day. Will increase lithium and vraylar doses. Patient aware and is in agreement. 11/18: Dr. Obando and T/W met with patient and sister today. Pt continues with racing thoughts and circumstantial thought content. Denies suicidal ideation. [place] to be increased to 600mg PO BID; patient aware. CIWA D/C'd d/t scoring low and no withdrawal symptoms. youth worker to obtain records from [facility] with patients consent. 11/19: Patient reports difficulty sleeping. Continues with rapid speech, racing thoughts and circumstantial thought content. Signed 3 day last night, Patient reports she will retract on Tuesday if I don't feel better . Will add Seroquel at bedtime for sleep. seroquel added for insomnia monitor bp watch for s/e confusion with amlodipine lithium monitor creat watch for edema 11/20: No changes to current treatment regimen as Seroquel just added and patient declining any other changes 11/21: no changes- encourage current meds 11/22: Patient presents worsening in symptoms since Tuesday. Increased disorganization and paranoia; patient reports she has not slept. Ordered Ativan 2mg PO once, pt slept for 2.5 hours then woke up; Was then given Seroquel 50mg PO once; waiting on results. Patient retracted 3 day. Labs ordered, lithium level 0.83. Potassium 3.1; ordered hospitalist consult. UA pending. Patient educated on: diagnosis, medication risk/benefits and therapeutic strategies Informed Consent: understands and further education needed Reason for continued inpatient stay Substantial Risk for: med/psych decompensation Time Spent With Patient Time: Total time managing care of this patient today ____ minutes.
[2022-11-22 10:43] VITALS: BP 138/85; PULSE 101
--- NOTE | 2022-11-22 12:34 | PM.EVENT ---
Event Note Date of Service: 11/22/22 Event Note: Consult placed for mild hypokalemia 3.1. Was last measured at 3.7 on 11/16. Hypokalemia probably related to antipsychotic use. Will check Mag now. Replete with 40meq KCl now. Repeat K am. If hypokalemia persists, continue daily supplement if benefitting from offending agents. Will follow for results Time Spent With Patient Time: Total time managing care of this patient today ____ minutes.
[2022-11-22 21:37] VITALS: BP 122/91; PULSE 82; TEMP 36.7; O2SAT 100
[2022-11-22] MEDS: cloNIDine HCL 0.1 MG TABLET PO (21:39)
[2022-11-23 09:00] VITALS: BP 127/84; PULSE 103; TEMP 36.8; O2SAT 98
[2022-11-23] MEDS: Lithium Carbonate ER 300 MG TABLET.ER 600 MG PO (09:06)
[2022-11-23] MEDS: Cariprazine HCl 3 MG CAPSULE PO (09:06)
[2022-11-23] MEDS: amLODIPine Besylate 10 MG TABLET PO (09:07)
[2022-11-23] MEDS: Thiamine HCL 100 MG TABLET PO (09:47)
--- NOTE | 2022-11-23 09:48 | HO.PSYCHPN ---
Subjective Subjective Date of Service: 11/23/22 Reason For Visit: Bipolar Disorder Subjective Notes: Conditional Voluntary Interim History: Pt presents as disorganized, poor attention. Pt pacing, asking this field underwriter if I have the keys of the keys. Then she shows this field underwriter the light switch, states this is broken. At times she stops and knees down reports I'm losing my mind. Pt appears delirium with poor attention, disorganized thought process and behavior, purposeless behaviors. Review of Systems Review of Systems Unremarkable Constitutional: Reports as per HPI Eyes: Reports as per HPI Reports as per HPI Cardiovascular: Reports as per HPI Respiratory: Reports as per HPI Gastrointestinal: Reports as per HPI Musculoskeletal: Reports as per HPI Skin/Breast: Reports as per HPI Reports as per HPI Psychiatric: Reports as per HPI Endocrine: Reports as per HPI Hematologic/Lymphatic: Reports as per HPI Allergic/Immunologic: Reports as per HPI Diagnostics Vital Signs (24Hr): Vital Signs - 24 hr 11/22/22 10:43 11/22/22 21:37 Temperature 98.1 F Pulse Rate 101 H 82 Blood Pressure 138/85 122/91 H Pulse Oximetry 100 Oxygen Delivery Method Room Air BMI result Body Mass Index 22.0 Labs 11/22/22 09:18 Labs: Laboratory Results - last 48 hr 11/22/22 11/22/22 09:18 09:18 Sodium 137 Potassium 3.1 L Chloride 106 Carbon Dioxide 20 L Anion Gap 14 BUN 7 L Creatinine 0.66 Estim Creat Clear Calc 82.0 Estimated GFR > 60 Magnesium 2.2 TSH 1.35 [place] 0.83 Medications Medications Current Medications Acetaminophen (Acetaminophen 325 Mg Tablet) 650 mg PO Q6H PRN PRN Reason: Headache/Pain Mild Scale (1-3) Last Admin: 11/20/22 08:39 Dose: 650 mg Al Hydroxide/Mg Hydroxide (Magnesium Hydrox/Alum Hydrox 30 Ml Oral.Susp) 30 ml PO Q6H PRN PRN Reason: Heartburn/Nausea Last Admin: 11/18/22 22:40 Dose: 30 ml Amlodipine Besylate (Amlodipine Besylate 10 Mg Tablet) 10 mg PO DAILY JAKE; Protocol Last Admin: 11/23/22 09:07 Dose: 10 mg Cariprazine (Cariprazine Hcl 3 Mg Capsule) 3 mg PO DAILY JAKE Last Admin: 11/23/22 09:06 Dose: 3 mg Clonidine HCl (Clonidine Hcl 0.1 Mg Tablet) 0.1 mg PO TID PRN; Protocol PRN Reason: Anxiety Last Admin: 11/22/22 21:39 Dose: 0.1 mg [place] Carbonate ([place] Carbonate Er 300 Mg Tablet.Er) 600 mg PO BID JAKE Last Admin: 11/23/22 09:06 Dose: 600 mg Lorazepam (Lorazepam 1 Mg Tablet) 2 mg PO BEDTIME JAKE Magnesium Hydroxide (Milk Of Magnesia 30 Ml Oral.Susp) 30 ml PO DAILY PRN PRN Reason: Constipation Nicotine Polacrilex (Nicotine Polacrilex Lozenge 4 Mg Lozenge) 4 mg BUCCAL Q2H PRN PRN Reason: Nicotine Cravings Last Admin: 11/19/22 17:49 Dose: 4 mg Thiamine HCl (Thiamine Hcl 100 Mg Tablet) 100 mg PO DAILY JAKE Last Admin: 11/23/22 09:47 Dose: 100 mg Trazodone HCl (Trazodone Hcl 100 Mg Tablet) 100 mg PO BEDTIME MRX1 PRN PRN Reason: Insomnia Allergies Allergies Allergy/AdvReac Type Severity Reaction Status Date / Time bupropion [From Wellbutrin] Allergy Unknown Verified 11/15/22 23:35 Assessment & Plan Assessment & Plan (1) Bipolar 1 disorder: Status: Acute Code(s): F31.9 - Bipolar disorder, unspecified Plan Patient is a 42 year old female with hx of bipolar d/o who self presented to [facility] ER after calling 911 and reporting she was in crisis . When arrived to ER, pt struggled to engage with staff and presented with mumbled speech. Collateral was obtained from and sister. Plan: CV 1:1 Obtain collateral Ativan 0.5mg PO BID Vraylar 3mg PO daily [place] 600mg PO BID Seroquel 25mg PO bedtime Seroquel 25mg PO PRN insomnia, if scheduled dose is ineffective. 11/17: Patient continues to have circumstantial thought content and paranoid delusions. Patient reports she want to live but knows if I have medications then I'll take them all . Patient reports she feels safe on the unit. Retracted 3 day. Will increase lithium and vraylar doses. Patient aware and is in agreement. 11/18: Dr. Obando and T/W met with patient and sister today. Pt continues with racing thoughts and circumstantial thought content. Denies suicidal ideation. [place] to be increased to 600mg PO BID; patient aware. CIWA D/C'd d/t scoring low and no withdrawal symptoms. switchboard wire worker helper to obtain records from [facility] with patients consent. 11/19: Patient reports difficulty sleeping. Continues with rapid speech, racing thoughts and circumstantial thought content. Signed 3 day last night, Patient reports she will retract on Tuesday if I don't feel better . Will add Seroquel at bedtime for sleep. seroquel added for insomnia monitor bp watch for s/e confusion with amlodipine lithium monitor creat watch for edema 11/20: No changes to current treatment regimen as Seroquel just added and patient declining any other changes 11/21: no changes- encourage current meds 11/22: Patient presents worsening in symptoms since Tuesday. Increased disorganization and paranoia; patient reports she has not slept. Ordered Ativan 2mg PO once, pt slept for 2.5 hours then woke up; Was then given Seroquel 50mg PO once; waiting on results. Patient retracted 3 day. Labs ordered, lithium level 0.83. Potassium 3.1; ordered hospitalist consult. UA pending. 11/23 pt appears delirious- if related to alcohol withdrawal, delirium tremens often seen> 96 hrs after last drink. Otherwise wondering if lithium. will hold lithium. give ativan 2mg and schedule ativan 2mg po qhs. d/c ambien. May need much higher doses if in DTs. Reason for continued inpatient stay Substantial Risk for: inability to function Time Spent With Patient Time: Total time managing care of this patient today ____ minutes.
[2022-11-23 13:00] VITALS: BP 117/73; PULSE 98; RESP 18; TEMP 36.7; O2SAT 100
[2022-11-23 14:21] LABS: Anion Gap 10 (12-20); Blood Urea Nitrogen 8 mg/dL (9-16); Calcium 10.3 mg/dL (8.4-10.2); Carbon Dioxide 25 mmol/L (22-29); Chloride 106 mmol/L (96-108); Creatinine Clr Calc Pharmacy 71.2; Estimated Glomerular Filt Rate > 60; Glucose Random 102 mg/dL (60-115); Potassium 3.4 mmol/L (3.3-5.1); Sodium 138 mmol/L (135-145)
[2022-11-23] MEDS: Nicotine Polacrilex Lozenge 4 MG LOZENGE BUCCAL (20:04)
[2022-11-23 20:07] VITALS: BP 127/89; PULSE 92; RESP 18; TEMP 36.7; O2SAT 99
[2022-11-23] MEDS: cloNIDine HCL 0.1 MG TABLET PO (20:09)
[2022-11-24] MEDS: Thiamine HCL 100 MG TABLET PO (08:37)
[2022-11-24] MEDS: Cariprazine HCl 3 MG CAPSULE PO (08:37)
[2022-11-24] MEDS: amLODIPine Besylate 10 MG TABLET PO (08:38)
[2022-11-24 09:00] VITALS: BP 127/89; PULSE 103; RESP 18; TEMP 36.6; O2SAT 100
[2022-11-24] MEDS: cloNIDine HCL 0.1 MG TABLET PO ×2 (09:32→22:19)
--- NOTE | 2022-11-24 09:44 | PC.NURSE ---
Yisel present this am alert to name only, increased confusion and irritability. She wants to call 911, but cant articulate, why. She has been singing her answers when you ask her a question for example. Yisel do you want water A [place] a deer a female deer speech is clear but nonsensical. [employer] Cook observed her with a pillow case draped on top of her like a hat. Rebekah Gee NP notified of patients mental status, via [place] [employer]. [employer] Cook will give PRN Clonidine , Luke will see her this am, after team meeting.
--- NOTE | 2022-11-24 10:11 | HO.PSYCHPN ---
Subjective Subjective Date of Service: 11/24/22 Reason For Visit: Bipolar Disorder Subjective Notes: Conditional Voluntary Interim History: Reviewed with team and Dr. Obando. Pt continues with racing thoughts and circumstantial thought content. Patient reports she slept better last night. Presents with delusional thought content; however is able to have insight into illness. Patient stated, I'm in a feedback loop. I know I'm delusional. I know lithium has helped me in the past. Zyprexa hasn't. I want to just go to [facility] and do outpatient treatment . Medication Compliance: Yes Attending Groups: No Review of Systems Constitutional: Reports as per HPI Eyes: Reports as per HPI Reports as per HPI Cardiovascular: Reports as per HPI Respiratory: Reports as per HPI Gastrointestinal: Reports as per HPI Genitourinary: Reports as per HPI Musculoskeletal: Reports as per HPI Skin/Breast: Reports as per HPI Reports as per HPI Psychiatric: Reports as per HPI Endocrine: Reports as per HPI Hematologic/Lymphatic: Reports as per HPI Allergic/Immunologic: Reports as per HPI Mental Status Exam Mental Status Exam Narrative: Pt is alert and oriented; behavior is cooperative and calm; patient is not in distress; dressed in casual attire; mood is described as anxious ; eye contact appropriate; Speech is rapid, pressured; no psychomotor agitation/retardation present; thought process is disorganized; Thought content is circumstantial; Presents with paranoid delusional content; denies any HI/SI. There is no evidence of perceptual disturbance. Patients insight and judgment are poor. Diagnostics Vital Signs (24Hr): Vital Signs - 24 hr 11/23/22 13:00 11/23/22 20:07 11/24/22 09:00 Temperature 98.1 F 98.1 F 97.9 F Pulse Rate 98 92 103 H Respiratory Rate 18 18 18 Blood Pressure 117/73 127/89 127/89 Pulse Oximetry 100 99 100 Oxygen Delivery Method Room Air Room Air Room Air BMI result Body Mass Index 22.0 Labs 11/23/22 13:00 Labs: Laboratory Results - last 48 hr 11/22/22 11/23/22 09:18 13:00 Sodium 138 Potassium 3.4 Chloride 106 Carbon Dioxide 25 Anion Gap 10 L BUN 8 L Creatinine 0.76 Estim Creat Clear Calc 71.2 Estimated GFR > 60 Random Glucose 102 Calcium 10.3 H Magnesium 2.2 TSH 1.35 Medications Medications Current Medications Acetaminophen (Acetaminophen 325 Mg Tablet) 650 mg PO Q6H PRN PRN Reason: Headache/Pain Mild Scale (1-3) Last Admin: 11/20/22 08:39 Dose: 650 mg Al Hydroxide/Mg Hydroxide (Magnesium Hydrox/Alum Hydrox 30 Ml Oral.Susp) 30 ml PO Q6H PRN PRN Reason: Heartburn/Nausea Last Admin: 11/18/22 22:40 Dose: 30 ml Amlodipine Besylate (Amlodipine Besylate 10 Mg Tablet) 10 mg PO DAILY [facility]; Protocol Last Admin: 11/24/22 08:38 Dose: 10 mg Clonidine HCl (Clonidine Hcl 0.1 Mg Tablet) 0.1 mg PO TID PRN; Protocol PRN Reason: Anxiety Last Admin: 11/24/22 09:32 Dose: 0.1 mg Divalproex Sodium (Divalproex Sodium Er 250 Mg Tab.Er.24h) 250 mg PO BID [facility] [place] Carbonate ([place] Carbonate Er 300 Mg Tablet.Er) 600 mg PO BID [facility] Last Admin: 11/23/22 09:06 Dose: 600 mg Magnesium Hydroxide (Milk Of Magnesia 30 Ml Oral.Susp) 30 ml PO DAILY PRN PRN Reason: Constipation Nicotine Polacrilex (Nicotine Polacrilex Lozenge 4 Mg Lozenge) 4 mg BUCCAL Q2H PRN PRN Reason: Nicotine Cravings Last Admin: 11/23/22 20:04 Dose: 4 mg Olanzapine (Olanzapine 5 Mg Tablet) 5 mg PO BID [facility] Thiamine HCl (Thiamine Hcl 100 Mg Tablet) 100 mg PO DAILY [facility] Last Admin: 11/24/22 08:37 Dose: 100 mg Trazodone HCl (Trazodone Hcl 100 Mg Tablet) 100 mg PO BEDTIME MRX1 PRN PRN Reason: Insomnia Allergies Allergies Allergy/AdvReac Type Severity Reaction Status Date / Time bupropion [From Wellbutrin] Allergy Unknown Verified 11/15/22 23:35 Assessment & Plan Assessment & Plan (1) Bipolar 1 disorder: Status: Acute Code(s): F31.9 - Bipolar disorder, unspecified Plan Patient is a 42 year old female with hx of bipolar d/o who self presented to [facility] ER after calling 911 and reporting she was in crisis . When arrived to ER, pt struggled to engage with staff and presented with mumbled speech. Collateral was obtained from and sister. Plan: CV 1:1 Obtain collateral [place] 600mg PO BID DC: Vraylar Ativan Start: Risperdal 1mg PO BID Risperdal 0.5mg PO Q4hr PRN agitation Depakote ER 200mg PO BID 11/17: Patient continues to have circumstantial thought content and paranoid delusions. Patient reports she want to live but knows if I have medications then I'll take them all . Patient reports she feels safe on the unit. Retracted 3 day. Will increase lithium and vraylar doses. Patient aware and is in agreement. 11/18: Dr. Obando and T/W met with patient and sister today. Pt continues with racing thoughts and circumstantial thought content. Denies suicidal ideation. [place] to be increased to 600mg PO BID; patient aware. CIWA D/C'd d/t scoring low and no withdrawal symptoms. dye worker to obtain records from [facility] with patients consent. 11/19: Patient reports difficulty sleeping. Continues with rapid speech, racing thoughts and circumstantial thought content. Signed 3 day last night, Patient reports she will retract on Tuesday if I don't feel better . Will add Seroquel at bedtime for sleep. seroquel added for insomnia monitor bp watch for s/e confusion with amlodipine lithium monitor creat watch for edema 11/20: No changes to current treatment regimen as Seroquel just added and patient declining any other changes 11/21: no changes- encourage current meds 11/22: Patient presents worsening in symptoms since Tuesday. Increased disorganization and paranoia; patient reports she has not slept. Ordered Ativan 2mg PO once, pt slept for 2.5 hours then woke up; Was then given Seroquel 50mg PO once; waiting on results. Patient retracted 3 day. Labs ordered, lithium level 0.83. Potassium 3.1; ordered hospitalist consult. UA pending. 11/23 pt appears delirious- if related to alcohol withdrawal, delirium tremens often seen> 96 hrs after last drink. Otherwise wondering if lithium. will hold lithium. give ativan 2mg and schedule ativan 2mg po qhs. d/c ambien. May need much higher doses if in DTs. 11/24: Patient continues disorganized, however presents with better insight. States she knows she is being delusional and not making sense . She was able to vocalize medications that have helped her in the past. D/C ativan; possibly making her confused. Started on risperdal d/t patient reporting she had never tried. Agreed to trial. Risks/benefits discussed. Starting Depakote to assist in decreasing dannielle. T/W spoke to sister (Constanza); gave her update on patient's treatment plan. Sister expressed gratitude towards staff/communication. Patient educated on: diagnosis, medication risk/benefits and therapeutic strategies Informed Consent: understands and further education needed Reason for continued inpatient stay Substantial Risk for: med/psych decompensation Time Spent With Patient Time: Total time managing care of this patient today ____ minutes.
--- NOTE | 2022-11-24 12:52 | PC.NURSE ---
Pt appears to be sleeping, Pt observer at bedside.
--- NOTE | 2022-11-24 13:44 | PC.NURSE ---
Pt awake after about 45 min nap. Pt woke up Delirous, and confused waving her hands and saying i'm joshing and issing and jazz hands. im joking joking joking. Putting her hands up and saying and scene Pt refusing to come out of bathroom. saying ivelisse richards waving hands intermittently .
[2022-11-24] MEDS: Lithium Carbonate ER 300 MG TABLET.ER 600 MG PO (20:41)
[2022-11-24 20:49] VITALS: BP 134/85; PULSE 92; RESP 16; TEMP 36.6; O2SAT 100
[2022-11-24 22:21] VITALS: BP 125/88; PULSE 92; RESP 16; O2SAT 97
--- NOTE | 2022-11-24 22:27 | PC.NURSE ---
Yisel reported an increase in anxiety, was given clonidine 0.1 mgPO prn
[2022-11-25] MEDS: Thiamine HCL 100 MG TABLET PO (08:28)
[2022-11-25] MEDS: Lithium Carbonate ER 300 MG TABLET.ER 600 MG PO (08:28)
[2022-11-25 08:30] VITALS: BP 135/93; PULSE 95; RESP 18; TEMP 36.6; O2SAT 100
[2022-11-25] MEDS: amLODIPine Besylate 10 MG TABLET PO (08:39)
--- NOTE | 2022-11-25 09:46 | HO.PSYCHPN ---
Subjective Subjective Date of Service: 11/25/22 Reason For Visit: Bipolar Disorder Subjective Notes: Conditional Voluntary Interim History: Reviewed with team and Dr. Obando. Pt continues with racing thoughts and circumstantial thought content. Presents with delusional thought content; however is able to have insight into illness. Patient stated, I feel better than yesterday. I need more lithium. Patient broke her eyeglasses by continuously bending them; which were placed behind nurses station. Pt singing [employer] theme songs repeatedly. Patient informed us her psychiatrist is Dr. Wheat at [facility]; T/W was able to reach Dr. Wheat who stated that he is not her psychiatrist and only treated her for ECT;she received 7 treatments for depression but then stopped d/t c/o of memory loss. He did mention that a Dr. Fermin at [facility] saw the patient twice for addiction services and he will have her reach out to T/W. Medication Compliance: Yes Attending Groups: No Review of Systems Review of Systems Unremarkable Constitutional: Reports as per HPI Eyes: Reports as per HPI Reports as per HPI Cardiovascular: Reports as per HPI Respiratory: Reports as per HPI Gastrointestinal: Reports as per HPI Musculoskeletal: Reports as per HPI Skin/Breast: Reports as per HPI Reports as per HPI Psychiatric: Reports as per HPI Endocrine: Reports as per HPI Hematologic/Lymphatic: Reports as per HPI Allergic/Immunologic: Reports as per HPI Mental Status Exam Mental Status Exam Narrative: Pt is alert and oriented; behavior is cooperative and calm; patient is not in distress; dressed in casual attire; mood is described as anxious ; eye contact appropriate; Speech is rapid, pressured; no psychomotor agitation/retardation present; thought process is disorganized; Thought content is circumstantial; Presents with paranoid delusional content; denies any HI/SI. There is no evidence of perceptual disturbance. Patients insight and judgment are poor. Diagnostics Vital Signs (24Hr): Vital Signs - 24 hr 11/24/22 20:49 11/24/22 22:21 11/25/22 08:30 Temperature 97.9 F 97.9 F Pulse Rate 92 92 95 Respiratory Rate 16 16 18 Blood Pressure 134/85 125/88 135/93 H Pulse Oximetry 100 97 100 Oxygen Delivery Method Room Air Room Air Room Air BMI result Body Mass Index 22.0 Labs 11/23/22 13:00 Labs: Laboratory Results - last 48 hr 11/23/22 11/24/22 13:00 11:00 Sodium 138 Potassium 3.4 Chloride 106 Carbon Dioxide 25 Anion Gap 10 L BUN 8 L Creatinine 0.76 Estim Creat Clear Calc 71.2 Estimated GFR > 60 Random Glucose 102 Calcium 10.3 H Urine Color Red A Urine Appearance Turbid Urine pH 5.5 Ur Specific [place] 1.025 Urine Protein 100 (2+) H Urine Glucose (UA) Negative Urine Ketones 15 Urine Blood Large (3+) H Urine Nitrite Negative Ur Leukocyte Esterase Small (1+) H Urine RBC >20 H Urine WBC 6-10 H Ur Squamous Epith Cells 11-20 Urine Bacteria None Seen Hyaline Casts 0-2 Medications Medications Current Medications Acetaminophen (Acetaminophen 325 Mg Tablet) 650 mg PO Q6H PRN PRN Reason: Headache/Pain Mild Scale (1-3) Last Admin: 11/20/22 08:39 Dose: 650 mg Al Hydroxide/Mg Hydroxide (Magnesium Hydrox/Alum Hydrox 30 Ml Oral.Susp) 30 ml PO Q6H PRN PRN Reason: Heartburn/Nausea Last Admin: 11/18/22 22:40 Dose: 30 ml Amlodipine Besylate (Amlodipine Besylate 10 Mg Tablet) 10 mg PO DAILY [facility]; Protocol Last Admin: 11/25/22 08:39 Dose: 10 mg Clonidine HCl (Clonidine Hcl 0.1 Mg Tablet) 0.1 mg PO TID PRN; Protocol PRN Reason: Anxiety Last Admin: 11/24/22 22:19 Dose: 0.1 mg Divalproex Sodium (Divalproex Sodium Er 250 Mg Tab.Er.24h) 250 mg PO BID [facility] Last Admin: 11/25/22 08:28 Dose: 250 mg [place] Carbonate ([place] Carbonate Er 300 Mg Tablet.Er) 600 mg PO BID [facility] Last Admin: 11/25/22 08:28 Dose: 600 mg Magnesium Hydroxide (Milk Of Magnesia 30 Ml Oral.Susp) 30 ml PO DAILY PRN PRN Reason: Constipation Nicotine Polacrilex (Nicotine Polacrilex Lozenge 4 Mg Lozenge) 4 mg BUCCAL Q2H PRN PRN Reason: Nicotine Cravings Last Admin: 11/23/22 20:04 Dose: 4 mg Risperidone (Risperidone 1 Mg Tablet) 1 mg PO BID [facility] Last Admin: 11/25/22 08:28 Dose: 1 mg Risperidone (Risperidone 0.5 Mg Tablet) 0.5 mg PO Q4H PRN PRN Reason: Agitation Last Admin: 11/24/22 13:41 Dose: 0.5 mg Thiamine HCl (Thiamine Hcl 100 Mg Tablet) 100 mg PO DAILY [facility] Last Admin: 11/25/22 08:28 Dose: 100 mg Trazodone HCl (Trazodone Hcl 100 Mg Tablet) 100 mg PO BEDTIME MRX1 PRN PRN Reason: Insomnia Allergies Allergies Allergy/AdvReac Type Severity Reaction Status Date / Time bupropion [From Wellbutrin] Allergy Unknown Verified 11/15/22 23:35 Assessment & Plan Assessment & Plan (1) Bipolar 1 disorder: Status: Acute Code(s): F31.9 - Bipolar disorder, unspecified Plan Patient is a 42 year old female with hx of bipolar d/o who self presented to [facility] ER after calling 911 and reporting she was in crisis . When arrived to ER, pt struggled to engage with staff and presented with mumbled speech. Collateral was obtained from and sister. Plan: CV 1:1 Obtain collateral [place] 600mg PO BID Risperdal 1mg PO BID Risperdal 0.5mg PO Q4hr PRN agitation Depakote ER 200mg PO BID 11/17: Patient continues to have circumstantial thought content and paranoid delusions. Patient reports she want to live but knows if I have medications then I'll take them all . Patient reports she feels safe on the unit. Retracted 3 day. Will increase lithium and vraylar doses. Patient aware and is in agreement. 11/18: Dr. Obando and T/W met with patient and sister today. Pt continues with racing thoughts and circumstantial thought content. Denies suicidal ideation. [place] to be increased to 600mg PO BID; patient aware. CIWA D/C'd d/t scoring low and no withdrawal symptoms. handy worker to obtain records from [facility] with patients consent. 11/19: Patient reports difficulty sleeping. Continues with rapid speech, racing thoughts and circumstantial thought content. Signed 3 day last night, Patient reports she will retract on Tuesday if I don't feel better . Will add Seroquel at bedtime for sleep. seroquel added for insomnia monitor bp watch for s/e confusion with amlodipine lithium monitor creat watch for edema 11/20: No changes to current treatment regimen as Seroquel just added and patient declining any other changes 11/21: no changes- encourage current meds 11/22: Patient presents worsening in symptoms since Tuesday. Increased disorganization and paranoia; patient reports she has not slept. Ordered Ativan 2mg PO once, pt slept for 2.5 hours then woke up; Was then given Seroquel 50mg PO once; waiting on results. Patient retracted 3 day. Labs ordered, lithium level 0.83. Potassium 3.1; ordered hospitalist consult. UA pending. 11/23 pt appears delirious- if related to alcohol withdrawal, delirium tremens often seen> 96 hrs after last drink. Otherwise wondering if lithium. will hold lithium. give ativan 2mg and schedule ativan 2mg po qhs. d/c ambien. May need much higher doses if in DTs. 11/24: Patient continues disorganized, however presents with better insight. States she knows she is being delusional and not making sense . She was able to vocalize medications that have helped her in the past. D/C ativan; possibly making her confused. Started on risperdal d/t patient reporting she had never tried. Agreed to trial. Risks/benefits discussed. Starting Depakote to assist in decreasing dannielle. T/W spoke to sister (Constanza); gave her update on patient's treatment plan. Sister expressed gratitude towards staff/communication. 11/25: Patient reports feeling better than yesterday. Continues to present disorganized; singing at times. Is able to have a logical conversation at times. Was given a one time dose of Haldol 5mg PO; pt continues to report she is not sleeping at night. Waiting on collateral from [facility] and [facility]. Patient educated on: diagnosis, medication risk/benefits and therapeutic strategies Informed Consent: understands and further education needed Reason for continued inpatient stay Substantial Risk for: med/psych decompensation Time Spent With Patient Time: Total time managing care of this patient today ____ minutes.
[2022-11-25] MEDS: cloNIDine HCL 0.1 MG TABLET PO ×2 (11:01→18:20)
[2022-11-25 13:43] VITALS: BP 119/81; PULSE 100; RESP 16; TEMP 36.4; O2SAT 98
[2022-11-25 18:00] VITALS: BP 119/81; PULSE 100; RESP 18; TEMP 36.4; O2SAT 98
[2022-11-26] MEDS: traZODone HCL 100 MG TABLET PO ×3 (01:33→23:27)
[2022-11-26 07:45] VITALS: BP 120/77; PULSE 96; TEMP 36.6; O2SAT 98
[2022-11-26] MEDS: amLODIPine Besylate 10 MG TABLET PO (07:53)
[2022-11-26] MEDS: Thiamine HCL 100 MG TABLET PO (07:54)
--- NOTE | 2022-11-26 09:56 | HO.PSYCHPN ---
Subjective Subjective Date of Service: 11/26/22 Reason For Visit: Bipolar Disorder Subjective Notes: Conditional Voluntary Interim History: Reviewed with team and Dr. Obando. Pt presents much approved today. Presents calm,with slower speech, not as accelerated, not singing songs. Pt stated, I feel better today; I slept . Continues to have disorganized thought process but is able to have logical conversations in-between the disorganization. Pt stated, my thoughts are very disorganized. I need to keep sleeping . Was able to attend meditation group. Medication Compliance: Yes Attending Groups: Intermittent Review of Systems Review of Systems Unremarkable Constitutional: Reports as per HPI Eyes: Reports as per HPI Reports as per HPI Cardiovascular: Reports as per HPI Respiratory: Reports as per HPI Gastrointestinal: Reports as per HPI Genitourinary: Reports as per HPI Musculoskeletal: Reports as per HPI Skin/Breast: Reports as per HPI Reports as per HPI Psychiatric: Reports as per HPI Endocrine: Reports as per HPI Hematologic/Lymphatic: Reports as per HPI Allergic/Immunologic: Reports as per HPI Mental Status Exam Mental Status Exam Narrative: Pt is alert and oriented; behavior is cooperative and calm; patient is not in distress; dressed in casual attire; mood is described as anxious ; eye contact appropriate; Speech is slow, not pressured; no psychomotor agitation/retardation present; thought process is disorganized; Thought content is circumstantial; Presents with paranoid delusional content; denies any HI/SI. There is no evidence of perceptual disturbance. Patients insight and judgment are poor. Diagnostics Vital Signs (24Hr): Vital Signs - 24 hr 11/25/22 13:43 11/25/22 18:00 11/26/22 07:45 Temperature 97.6 F 97.6 F 98 F Pulse Rate 100 100 96 Respiratory Rate 16 18 Blood Pressure 119/81 119/81 120/77 Pulse Oximetry 98 98 98 Oxygen Delivery Method Room Air Room Air Room Air BMI result Body Mass Index 22.0 Labs 11/23/22 13:00 Labs: Laboratory Results - last 48 hr 11/24/22 11:00 Urine Color Red A Urine Appearance Turbid Urine pH 5.5 Ur Specific [place] 1.025 Urine Protein 100 (2+) H Urine Glucose (UA) Negative Urine Ketones 15 Urine Blood Large (3+) H Urine Nitrite Negative Ur Leukocyte Esterase Small (1+) H Urine RBC >20 H Urine WBC 6-10 H Ur Squamous Epith Cells 11-20 Urine Bacteria None Seen Hyaline Casts 0-2 Medications Medications Current Medications Acetaminophen (Acetaminophen 325 Mg Tablet) 650 mg PO Q6H PRN PRN Reason: Headache/Pain Mild Scale (1-3) Last Admin: 11/20/22 08:39 Dose: 650 mg Al Hydroxide/Mg Hydroxide (Magnesium Hydrox/Alum Hydrox 30 Ml Oral.Susp) 30 ml PO Q6H PRN PRN Reason: Heartburn/Nausea Last Admin: 11/18/22 22:40 Dose: 30 ml Amlodipine Besylate (Amlodipine Besylate 10 Mg Tablet) 10 mg PO DAILY [facility]; Protocol Last Admin: 11/26/22 07:53 Dose: 10 mg Clonidine HCl (Clonidine Hcl 0.1 Mg Tablet) 0.1 mg PO TID PRN; Protocol PRN Reason: Anxiety Last Admin: 11/25/22 18:20 Dose: 0.1 mg Divalproex Sodium (Divalproex Sodium Er 250 Mg Tab.Er.24h) 250 mg PO TID [facility] Last Admin: 11/26/22 07:53 Dose: 250 mg [place] Carbonate ([place] Carbonate Er 300 Mg Tablet.Er) 600 mg PO BID [facility] Last Admin: 11/25/22 08:28 Dose: 600 mg Magnesium Hydroxide (Milk Of Magnesia 30 Ml Oral.Susp) 30 ml PO DAILY PRN PRN Reason: Constipation Nicotine Polacrilex (Nicotine Polacrilex Lozenge 4 Mg Lozenge) 4 mg BUCCAL Q2H PRN PRN Reason: Nicotine Cravings Last Admin: 11/23/22 20:04 Dose: 4 mg Risperidone (Risperidone 0.5 Mg Tablet) 0.5 mg PO Q4H PRN PRN Reason: Agitation Last Admin: 11/25/22 18:20 Dose: 0.5 mg Risperidone (Risperidone 1 Mg Tablet) 1 mg PO TID [facility] Last Admin: 11/26/22 07:50 Dose: 1 mg Thiamine HCl (Thiamine Hcl 100 Mg Tablet) 100 mg PO DAILY [facility] Last Admin: 11/26/22 07:54 Dose: 100 mg Trazodone HCl (Trazodone Hcl 100 Mg Tablet) 100 mg PO BEDTIME MRX1 PRN PRN Reason: Insomnia Last Admin: 11/26/22 01:33 Dose: 100 mg Allergies Allergies Allergy/AdvReac Type Severity Reaction Status Date / Time bupropion [From Wellbutrin] Allergy Unknown Verified 11/15/22 23:35 Assessment & Plan Assessment & Plan (1) Bipolar 1 disorder: Status: Acute Code(s): F31.9 - Bipolar disorder, unspecified Plan Patient is a 42 year old female with hx of bipolar d/o who self presented to [facility] ER after calling 911 and reporting she was in crisis . When arrived to ER, pt struggled to engage with staff and presented with mumbled speech. Collateral was obtained from and sister. Plan: CV 1:1 Obtain collateral [place] 600mg PO BID *HOLD Risperdal 1mg PO TID Risperdal 0.5mg PO Q4hr PRN agitation Depakote ER 200mg PO TID 11/17: Patient continues to have circumstantial thought content and paranoid delusions. Patient reports she want to live but knows if I have medications then I'll take them all . Patient reports she feels safe on the unit. Retracted 3 day. Will increase lithium and vraylar doses. Patient aware and is in agreement. 11/18: Dr. Obando and T/W met with patient and sister today. Pt continues with racing thoughts and circumstantial thought content. Denies suicidal ideation. [place] to be increased to 600mg PO BID; patient aware. CIWA D/C'd d/t scoring low and no withdrawal symptoms. flume worker to obtain records from [facility] with patients consent. 11/19: Patient reports difficulty sleeping. Continues with rapid speech, racing thoughts and circumstantial thought content. Signed 3 day last night, Patient reports she will retract on Tuesday if I don't feel better . Will add Seroquel at bedtime for sleep. seroquel added for insomnia monitor bp watch for s/e confusion with amlodipine lithium monitor creat watch for edema 11/20: No changes to current treatment regimen as Seroquel just added and patient declining any other changes 11/21: no changes- encourage current meds 11/22: Patient presents worsening in symptoms since Tuesday. Increased disorganization and paranoia; patient reports she has not slept. Ordered Ativan 2mg PO once, pt slept for 2.5 hours then woke up; Was then given Seroquel 50mg PO once; waiting on results. Patient retracted 3 day. Labs ordered, lithium level 0.83. Potassium 3.1; ordered hospitalist consult. UA pending. 11/23 pt appears delirious- if related to alcohol withdrawal, delirium tremens often seen> 96 hrs after last drink. Otherwise wondering if lithium. will hold lithium. give ativan 2mg and schedule ativan 2mg po qhs. d/c ambien. May need much higher doses if in DTs. 11/24: Patient continues disorganized, however presents with better insight. States she knows she is being delusional and not making sense . She was able to vocalize medications that have helped her in the past. D/C ativan; possibly making her confused. Started on risperdal d/t patient reporting she had never tried. Agreed to trial. Risks/benefits discussed. Starting Depakote to assist in decreasing dannielle. T/W spoke to sister (Constanza); gave her update on patient's treatment plan. Sister expressed gratitude towards staff/communication. 11/25: Patient reports feeling better than yesterday. Continues to present disorganized; singing at times. Is able to have a logical conversation at times. Was given a one time dose of Haldol 5mg PO; pt continues to report she is not sleeping at night. Waiting on collateral from [facility] and [facility]. 11/26: Pt presents much approved today. Presents calm,with slower speech, not as accelerated. Pt stated, I feel better today; I slept . Continues to have disorganized thought process but is able to have logical conversations in-between the disorganization. Pt stated, my thoughts are very disorganized . Was able to attend meditation group. Continue with current tx plan. Patient educated on: diagnosis, medication risk/benefits and therapeutic strategies Informed Consent: understands Reason for continued inpatient stay Substantial Risk for: med/psych decompensation Time Spent With Patient Time: Total time managing care of this patient today ____ minutes.
[2022-11-26 13:00] VITALS: BP 113/79; PULSE 79
[2022-11-26] MEDS: Nicotine Polacrilex Lozenge 4 MG LOZENGE BUCCAL (14:23)
[2022-11-26 21:40] VITALS: BP 117/74; PULSE 84; RESP 18; TEMP 36.9; O2SAT 99
[2022-11-26] MEDS: cloNIDine HCL 0.1 MG TABLET PO (21:49)
[2022-11-27] MEDS: Thiamine HCL 100 MG TABLET PO (08:27)
[2022-11-27] MEDS: amLODIPine Besylate 10 MG TABLET PO (08:27)
[2022-11-27 09:00] VITALS: BP 113/75; PULSE 78; RESP 18; TEMP 36.8; O2SAT 99
[2022-11-27 13:00] VITALS: BP 117/72; PULSE 90; RESP 18; TEMP 36.6; O2SAT 100
--- NOTE | 2022-11-27 16:36 | HO.PSYCHPN ---
Subjective Subjective Date of Service: 11/27/22 Reason For Visit: Bipolar Disorder Interim History: pt seen in her room. c/o insomnia. agreeable to increase VPA to 1000 mg at schedule all at HS. was informed likely would need 1250 mg. per staff, feeling tired but can't sleep 2/2 racing thoughts. less bizarre behavior. slept only about 2 hours. Mental Status Exam Mental Status Exam Narrative: Pt is alert and oriented; behavior is cooperative and calm; patient is not in distress; dressed in casual attire; eye contact appropriate; Speech is slow, not pressured; no psychomotor agitation/retardation present; thought process is disorganized; Thought content is not indicative of paranoid delusional content; no HI/SI expressed. There is no evidence of perceptual disturbance. Patients insight and judgment are poor. Diagnostics Vital Signs (24Hr): Vital Signs - 24 hr 11/26/22 21:40 11/27/22 09:00 11/27/22 13:00 Temperature 98.5 F 98.2 F 97.8 F Pulse Rate 84 78 90 Respiratory Rate 18 18 18 Blood Pressure 117/74 113/75 117/72 Pulse Oximetry 99 99 100 Oxygen Delivery Method Room Air Room Air Room Air BMI result Body Mass Index 22.0 Labs 11/23/22 13:00 Medications Medications Current Medications Acetaminophen (Acetaminophen 325 Mg Tablet) 650 mg PO Q6H PRN PRN Reason: Headache/Pain Mild Scale (1-3) Last Admin: 11/20/22 08:39 Dose: 650 mg Al Hydroxide/Mg Hydroxide (Magnesium Hydrox/Alum Hydrox 30 Ml Oral.Susp) 30 ml PO Q6H PRN PRN Reason: Heartburn/Nausea Last Admin: 11/18/22 22:40 Dose: 30 ml Amlodipine Besylate (Amlodipine Besylate 10 Mg Tablet) 10 mg PO DAILY [facility]; Protocol Last Admin: 11/27/22 08:27 Dose: 10 mg Clonidine HCl (Clonidine Hcl 0.1 Mg Tablet) 0.1 mg PO TID PRN; Protocol PRN Reason: Anxiety Last Admin: 11/26/22 21:49 Dose: 0.1 mg Divalproex Sodium (Divalproex Sodium Er 500 Mg Tab.Er.24h) 1,000 mg PO BEDTIME [facility] [place] Carbonate ([place] Carbonate Er 300 Mg Tablet.Er) 600 mg PO BID [facility] Last Admin: 11/25/22 08:28 Dose: 600 mg Magnesium Hydroxide (Milk Of Magnesia 30 Ml Oral.Susp) 30 ml PO DAILY PRN PRN Reason: Constipation Nicotine Polacrilex (Nicotine Polacrilex Lozenge 4 Mg Lozenge) 4 mg BUCCAL Q2H PRN PRN Reason: Nicotine Cravings Last Admin: 11/26/22 14:23 Dose: 4 mg Risperidone (Risperidone 0.5 Mg Tablet) 0.5 mg PO Q4H PRN PRN Reason: Agitation Last Admin: 11/26/22 23:28 Dose: 0.5 mg Risperidone (Risperidone 1 Mg Tablet) 1 mg PO TID [facility] Last Admin: 11/27/22 14:30 Dose: 1 mg Thiamine HCl (Thiamine Hcl 100 Mg Tablet) 100 mg PO DAILY [facility] Last Admin: 11/27/22 08:27 Dose: 100 mg Trazodone HCl (Trazodone Hcl 100 Mg Tablet) 100 mg PO BEDTIME MRX1 PRN PRN Reason: Insomnia Last Admin: 11/26/22 23:27 Dose: 100 mg Allergies Allergies Allergy/AdvReac Type Severity Reaction Status Date / Time bupropion [From Wellbutrin] Allergy Unknown Verified 11/15/22 23:35 Assessment & Plan Assessment & Plan (1) Bipolar 1 disorder: Status: Acute Code(s): F31.9 - Bipolar disorder, unspecified Plan Patient is a 42 year old female with hx of bipolar d/o who self presented to [facility] ER after calling 911 and reporting she was in crisis . When arrived to ER, pt struggled to engage with staff and presented with mumbled speech. Collateral was obtained from and sister. Plan: CV 1:1 Obtain collateral [place] 600mg PO BID *HOLD Risperdal 1mg PO TID Risperdal 0.5mg PO Q4hr PRN agitation Depakote ER 200mg PO TID 11/17: Patient continues to have circumstantial thought content and paranoid delusions. Patient reports she want to live but knows if I have medications then I'll take them all . Patient reports she feels safe on the unit. Retracted 3 day. Will increase lithium and vraylar doses. Patient aware and is in agreement. 11/18: Dr. Obando and T/W met with patient and sister today. Pt continues with racing thoughts and circumstantial thought content. Denies suicidal ideation. [place] to be increased to 600mg PO BID; patient aware. CIWA D/C'd d/t scoring low and no withdrawal symptoms. key worker to obtain records from [facility] with patients consent. 11/19: Patient reports difficulty sleeping. Continues with rapid speech, racing thoughts and circumstantial thought content. Signed 3 day last night, Patient reports she will retract on Tuesday if I don't feel better . Will add Seroquel at bedtime for sleep. seroquel added for insomnia monitor bp watch for s/e confusion with amlodipine lithium monitor creat watch for edema 11/20: No changes to current treatment regimen as Seroquel just added and patient declining any other changes 11/21: no changes- encourage current meds 11/22: Patient presents worsening in symptoms since Tuesday. Increased disorganization and paranoia; patient reports she has not slept. Ordered Ativan 2mg PO once, pt slept for 2.5 hours then woke up; Was then given Seroquel 50mg PO once; waiting on results. Patient retracted 3 day. Labs ordered, lithium level 0.83. Potassium 3.1; ordered hospitalist consult. UA pending. 11/23 pt appears delirious- if related to alcohol withdrawal, delirium tremens often seen> 96 hrs after last drink. Otherwise wondering if lithium. will hold lithium. give ativan 2mg and schedule ativan 2mg po qhs. d/c ambien. May need much higher doses if in DTs. 11/24: Patient continues disorganized, however presents with better insight. States she knows she is being delusional and not making sense . She was able to vocalize medications that have helped her in the past. D/C ativan; possibly making her confused. Started on risperdal d/t patient reporting she had never tried. Agreed to trial. Risks/benefits discussed. Starting Depakote to assist in decreasing dannielle. T/W spoke to sister (Constanza); gave her update on patient's treatment plan. Sister expressed gratitude towards staff/communication. 11/25: Patient reports feeling better than yesterday. Continues to present disorganized; singing at times. Is able to have a logical conversation at times. Was given a one time dose of Haldol 5mg PO; pt continues to report she is not sleeping at night. Waiting on collateral from [facility] and [facility]. 11/26: Pt presents much approved today. Presents calm,with slower speech, not as accelerated. Pt stated, I feel better today; I slept . Continues to have disorganized thought process but is able to have logical conversations in-between the disorganization. Pt stated, my thoughts are very disorganized . Was able to attend meditation group. Continue with current tx plan. 11/27: more organized. still not sleeping. agreeable to increase VPA to 100 mg daily and to reschedule all to HS. Reason for continued inpatient stay Substantial Risk for: inability to function and rapid decompensation Time Spent With Patient Time: Total time managing care of this patient today ____ minutes.
[2022-11-27 21:11] VITALS: BP 128/85; PULSE 95; RESP 18; TEMP 36.7; O2SAT 100
[2022-11-27] MEDS: Divalproex Sodium ER 500 MG TAB.ER.24H 1000 MG PO (21:22)
[2022-11-27] MEDS: traZODone HCL 100 MG TABLET PO (21:22)
[2022-11-27] MEDS: cloNIDine HCL 0.1 MG TABLET PO (21:22)
[2022-11-28] MEDS: traZODone HCL 100 MG TABLET PO ×3 (01:46→22:47)
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
[2022-11-28] MEDS: cloNIDine HCL 0.1 MG TABLET PO ×2 (07:24→22:47)
[2022-11-28 09:10] VITALS: BP 108/67; PULSE 78; RESP 16; TEMP 36.4; O2SAT 100
[2022-11-28] MEDS: Thiamine HCL 100 MG TABLET PO (09:12)
[2022-11-28] MEDS: amLODIPine Besylate 10 MG TABLET PO (09:12)
[2022-11-28 13:00] VITALS: BP 115/75; PULSE 89; RESP 18; TEMP 36.2; O2SAT 98
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
[2022-11-28 19:29] VITALS: BP 129/83; PULSE 82; RESP 16; TEMP 36.6; O2SAT 100
[2022-11-28] MEDS: Divalproex Sodium ER 500 MG TAB.ER.24H 1000 MG PO (21:00)
[2022-11-28 22:50] VITALS: BP 122/82; PULSE 92
[2022-11-29] MEDS: cloNIDine HCL 0.1 MG TABLET PO ×2 (06:24→13:38)
[2022-11-29 06:30] VITALS: BP 105/74; PULSE 84
--- NOTE | 2022-11-29 06:41 | PC.NURSE ---
Yisel continues to require 1:1 for safety. she took PRN trazodone with HS medications, Trazodone was repeated with Clonidine at 2250. patient remained restless but was able to sleep for approximately 5 hours. she took an additional PRN Clonidine at 0630 for restlessness and anxiety. Yisel stated that she does not want to take the Risperdal any more because it makes her feel inside and I can't talk right she continues to make statements that she wishes she wasn't alive anymore because life is too hard, I can't do this anymore
[2022-11-29 08:37] VITALS: BP 102/72; PULSE 76; RESP 18; TEMP 36.3; O2SAT 100
[2022-11-29] MEDS: Thiamine HCL 100 MG TABLET PO (08:39)
[2022-11-29] MEDS: amLODIPine Besylate 10 MG TABLET PO (08:39)
[2022-11-29 13:00] VITALS: BP 88/62; PULSE 68; RESP 16; O2SAT 100
--- NOTE | 2022-11-29 13:40 | PC.NURSE ---
Patient c/o anxiety 10/30. MEdicated with Clonidine. VSS. P 79 BP 113/66. Will continue to monitor.
--- NOTE | 2022-11-29 15:12 | HO.PSYCHPN ---
Subjective Subjective Date of Service: 11/29/22 Reason For Visit: Bipolar Disorder Interim History: more fluid and spontaneous than before. feeling better, slept better last night. concerned about weight gain. suggests DC of risperidone and trial of abilify. states she has been on abilify in the past. agreeable to DC risperidone and start abilify 5 mg daily. per staff, active, appropriate. dep/anx 10. flopping on ground. napping. shuffling, picking u pspeed, slamming body into gonzalez. +SI statements to overnight staff. doesn't want to take risperidone. restless sleep, about 5 hours. Mental Status Exam Mental Status Exam Narrative: Pt is alert and oriented; behavior is cooperative and calm; patient is not in distress; dressed in casual attire; eye contact appropriate; Speech is nml rate and amount, not pressured; less psychomotor retardation present; thought process is more organized; Thought content is not indicative of paranoid delusional content; no HI/SI expressed. There is no evidence of perceptual disturbance. Patients insight and judgment are improving. Diagnostics Vital Signs (24Hr): Vital Signs - 24 hr 11/28/22 19:29 11/28/22 22:50 11/29/22 06:30 Temperature 97.9 F Pulse Rate 82 92 84 Respiratory Rate 16 Blood Pressure 129/83 122/82 105/74 Pulse Oximetry 100 Oxygen Delivery Method Room Air 11/29/22 08:37 11/29/22 13:00 Temperature 97.3 F Pulse Rate 76 68 Respiratory Rate 18 16 Blood Pressure 102/72 88/62 L Pulse Oximetry 100 100 Oxygen Delivery Method Room Air Room Air BMI result Body Mass Index 22.0 Labs 11/23/22 13:00 Labs: Laboratory Results - last 48 hr 11/28/22 17:45 Urine Color Yellow Urine Appearance Cloudy Urine pH 7.0 Ur Specific [place] 1.010 Urine Protein Trace Urine Glucose (UA) Negative Urine Ketones Trace Urine Blood Negative Urine Nitrite Negative Ur Leukocyte Esterase Negative Medications Medications Current Medications Acetaminophen (Acetaminophen 325 Mg Tablet) 650 mg PO Q6H PRN PRN Reason: Headache/Pain Mild Scale (1-3) Last Admin: 11/20/22 08:39 Dose: 650 mg Al Hydroxide/Mg Hydroxide (Magnesium Hydrox/Alum Hydrox 30 Ml Oral.Susp) 30 ml PO Q6H PRN PRN Reason: Heartburn/Nausea Last Admin: 11/18/22 22:40 Dose: 30 ml Amlodipine Besylate (Amlodipine Besylate 10 Mg Tablet) 10 mg PO DAILY [facility]; Protocol Last Admin: 11/29/22 08:39 Dose: 10 mg Aripiprazole (Aripiprazole 5 Mg Tablet) 5 mg PO DAILY JAKE Clonidine HCl (Clonidine Hcl 0.1 Mg Tablet) 0.1 mg PO TID PRN; Protocol PRN Reason: Anxiety Last Admin: 11/29/22 13:38 Dose: 0.1 mg Divalproex Sodium (Divalproex Sodium Er 500 Mg Tab.Er.24h) 1,000 mg PO BEDTIME JAKE Last Admin: 11/28/22 21:00 Dose: 1,000 mg Randall Carbonate (Randall Carbonate Er 300 Mg Tablet.Er) 600 mg PO BID [facility] Last Admin: 11/25/22 08:28 Dose: 600 mg Magnesium Hydroxide (Milk Of Magnesia 30 Ml Oral.Susp) 30 ml PO DAILY PRN PRN Reason: Constipation Nicotine Polacrilex (Nicotine Polacrilex Lozenge 4 Mg Lozenge) 4 mg BUCCAL Q2H PRN PRN Reason: Nicotine Cravings Last Admin: 11/26/22 14:23 Dose: 4 mg Thiamine HCl (Thiamine Hcl 100 Mg Tablet) 100 mg PO DAILY JAKE Last Admin: 11/29/22 08:39 Dose: 100 mg Trazodone HCl (Trazodone Hcl 100 Mg Tablet) 100 mg PO BEDTIME MRX1 PRN PRN Reason: Insomnia Last Admin: 11/28/22 22:47 Dose: 100 mg Allergies Allergies Allergy/AdvReac Type Severity Reaction Status Date / Time bupropion [From Wellbutrin] Allergy Unknown Verified 11/15/22 23:35 Assessment & Plan Assessment & Plan (1) Bipolar 1 disorder: Status: Acute Code(s): F31.9 - Bipolar disorder, unspecified Plan Patient is a 42 year old female with hx of bipolar d/o who self presented to [facility] ER after calling 911 and reporting she was in crisis . When arrived to ER, pt struggled to engage with staff and presented with mumbled speech. Collateral was obtained from and sister. Plan: CV 1:1 Obtain collateral Randall 600mg PO BID *HOLD Risperdal 1mg PO TID Risperdal 0.5mg PO Q4hr PRN agitation Depakote ER 200mg PO TID 11/17: Patient continues to have circumstantial thought content and paranoid delusions. Patient reports she want to live but knows if I have medications then I'll take them all . Patient reports she feels safe on the unit. Retracted 3 day. Will increase lithium and vraylar doses. Patient aware and is in agreement. 11/18: Dr. Obando and T/W met with patient and sister today. Pt continues with racing thoughts and circumstantial thought content. Denies suicidal ideation. Randall to be increased to 600mg PO BID; patient aware. CIWA D/C'd d/t scoring low and no withdrawal symptoms. automotive worker foreman to obtain records from [facility] with patients consent. 11/19: Patient reports difficulty sleeping. Continues with rapid speech, racing thoughts and circumstantial thought content. Signed 3 day last night, Patient reports she will retract on Tuesday if I don't feel better . Will add Seroquel at bedtime for sleep. seroquel added for insomnia monitor bp watch for s/e confusion with amlodipine lithium monitor creat watch for edema 11/20: No changes to current treatment regimen as Seroquel just added and patient declining any other changes 11/21: no changes- encourage current meds 11/22: Patient presents worsening in symptoms since Tuesday. Increased disorganization and paranoia; patient reports she has not slept. Ordered Ativan 2mg PO once, pt slept for 2.5 hours then woke up; Was then given Seroquel 50mg PO once; waiting on results. Patient retracted 3 day. Labs ordered, lithium level 0.83. Potassium 3.1; ordered hospitalist consult. UA pending. 11/23 pt appears delirious- if related to alcohol withdrawal, delirium tremens often seen> 96 hrs after last drink. Otherwise wondering if lithium. will hold lithium. give ativan 2mg and schedule ativan 2mg po qhs. d/c ambien. May need much higher doses if in DTs. 11/24: Patient continues disorganized, however presents with better insight. States she knows she is being delusional and not making sense . She was able to vocalize medications that have helped her in the past. D/C ativan; possibly making her confused. Started on risperdal d/t patient reporting she had never tried. Agreed to trial. Risks/benefits discussed. Starting Depakote to assist in decreasing dannielle. T/W spoke to sister (Constanza); gave her update on patient's treatment plan. Sister expressed gratitude towards staff/communication. 11/25: Patient reports feeling better than yesterday. Continues to present disorganized; singing at times. Is able to have a logical conversation at times. Was given a one time dose of Haldol 5mg PO; pt continues to report she is not sleeping at night. Waiting on collateral from [facility]. 11/26: Pt presents much approved today. Presents calm,with slower speech, not as accelerated. Pt stated, I feel better today; I slept . Continues to have disorganized thought process but is able to have logical conversations in-between the disorganization. Pt stated, my thoughts are very disorganized . Was able to attend meditation group. Continue with current tx plan. 11/27: more organized. still not sleeping. agreeable to increase VPA to 1000 mg daily and to reschedule all to HS. 11/28: slept about 3-4 hours last night. bizarrely repeatedly lowering herself to the floor in the past 24 H: i think i'm gonna fall. continue current mgmt for today. 11/29: slept 5 hours overnight, more fluid and spontaneous today, more organized. DC risperidone per pt request, start abilify. concern of weight gain. continue VPA 1000 mg QHS. Reason for continued inpatient stay Substantial Risk for: inability to function and rapid decompensation Time Spent With Patient Time: Total time managing care of this patient today __25__ minutes.
[2022-11-29 20:15] VITALS: BP 113/77; PULSE 75; RESP 16; TEMP 36.7; O2SAT 100
[2022-11-29] MEDS: traZODone HCL 100 MG TABLET PO ×2 (20:36→22:51)
[2022-11-29] MEDS: Divalproex Sodium ER 500 MG TAB.ER.24H 1000 MG PO (20:36)
[2022-11-30] VITALS: BP 106/70; PULSE 69; RESP 16; O2SAT 98
[2022-11-30] MEDS: cloNIDine HCL 0.1 MG TABLET PO ×2 (00:02→12:36)
[2022-11-30 08:16] VITALS: BP 100/65; PULSE 71; RESP 18; TEMP 36.4; O2SAT 100
[2022-11-30] MEDS: Thiamine HCL 100 MG TABLET PO (08:18)
[2022-11-30] MEDS: amLODIPine Besylate 10 MG TABLET PO (08:18)
[2022-11-30] MEDS: ARIPiprazole 5 MG TABLET PO (08:18)
--- NOTE | 2022-11-30 09:41 | HO.PSYCHPN ---
Subjective Subjective Date of Service: 11/30/22 Reason For Visit: Bipolar Disorder Subjective Notes: Conditional Voluntary Interim History: Reviewed in team and with Dr. Obando. Patient presents calm and organized today. Patient stated, my mood is a lot better. I slept last night . Patient reports feeling tired even though states she slept well last evening. She reports she would like to find a therapist to help me with my bipolar, ADHD and trauma . Medication Compliance: Yes Side effects from medications: No Attending Groups: Yes Review of Systems Constitutional: Reports as per HPI Eyes: Reports as per HPI Reports as per HPI Cardiovascular: Reports as per HPI Respiratory: Reports as per HPI Gastrointestinal: Reports as per HPI Genitourinary: Reports as per HPI Musculoskeletal: Reports as per HPI Skin/Breast: Reports as per HPI Reports as per HPI Psychiatric: Reports as per HPI Endocrine: Reports as per HPI Hematologic/Lymphatic: Reports as per HPI Allergic/Immunologic: Reports as per HPI Mental Status Exam Mental Status Exam Narrative: Pt is alert and oriented; behavior is cooperative, friendly and calm; patient is not in distress; dressed in casual attire; mood is described as tired ; eye contact appropriate; Speech is normal rate, volume and prosody and not pressured; no psychomotor agitation/retardation present; thought process is organized; Thought content is tangential; otherwise pertinent to relevant topics and without any delusional content, paranoid ideations or grandiosity; denies any SI/HI. There is no evidence of perceptual disturbance. Patients insight and judgment are poor but improving. Diagnostics Vital Signs (24Hr): Vital Signs - 24 hr 11/29/22 13:00 11/29/22 20:15 11/30/22 00:00 Temperature 98.1 F Pulse Rate 68 75 69 Respiratory Rate 16 16 16 Blood Pressure 88/62 L 113/77 106/70 Pulse Oximetry 100 100 98 Oxygen Delivery Method Room Air Room Air Room Air 11/30/22 08:16 Temperature 97.6 F Pulse Rate 71 Respiratory Rate 18 Blood Pressure 100/65 Pulse Oximetry 100 Oxygen Delivery Method BMI result Body Mass Index 22.0 Labs 11/23/22 13:00 Labs: Laboratory Results - last 48 hr 11/28/22 17:45 Urine Color Yellow Urine Appearance Cloudy Urine pH 7.0 Ur Specific [place] 1.010 Urine Protein Trace Urine Glucose (UA) Negative Urine Ketones Trace Urine Blood Negative Urine Nitrite Negative Ur Leukocyte Esterase Negative Medications Medications Current Medications Acetaminophen (Acetaminophen 325 Mg Tablet) 650 mg PO Q6H PRN PRN Reason: Headache/Pain Mild Scale (1-3) Last Admin: 11/20/22 08:39 Dose: 650 mg Al Hydroxide/Mg Hydroxide (Magnesium Hydrox/Alum Hydrox 30 Ml Oral.Susp) 30 ml PO Q6H PRN PRN Reason: Heartburn/Nausea Last Admin: 11/18/22 22:40 Dose: 30 ml Amlodipine Besylate (Amlodipine Besylate 10 Mg Tablet) 10 mg PO DAILY JA[facility]; Protocol Last Admin: 11/30/22 08:18 Dose: 10 mg Aripiprazole (Aripiprazole 5 Mg Tablet) 5 mg PO DAILY [facility] Last Admin: 11/30/22 08:18 Dose: 5 mg Clonidine HCl (Clonidine Hcl 0.1 Mg Tablet) 0.1 mg PO TID PRN; Protocol PRN Reason: Anxiety Last Admin: 11/30/22 00:02 Dose: 0.1 mg Divalproex Sodium (Divalproex Sodium Er 500 Mg Tab.Er.24h) 1,000 mg PO BEDTIME JAKE Last Admin: 11/29/22 20:36 Dose: 1,000 mg [place] Carbonate ([place] Carbonate Er 300 Mg Tablet.Er) 600 mg PO BID [facility] Last Admin: 11/25/22 08:28 Dose: 600 mg Magnesium Hydroxide (Milk Of Magnesia 30 Ml Oral.Susp) 30 ml PO DAILY PRN PRN Reason: Constipation Nicotine Polacrilex (Nicotine Polacrilex Lozenge 4 Mg Lozenge) 4 mg BUCCAL Q2H PRN PRN Reason: Nicotine Cravings Last Admin: 11/26/22 14:23 Dose: 4 mg Thiamine HCl (Thiamine Hcl 100 Mg Tablet) 100 mg PO DAILY [facility] Last Admin: 11/30/22 08:18 Dose: 100 mg Trazodone HCl (Trazodone Hcl 100 Mg Tablet) 100 mg PO BEDTIME MRX1 PRN PRN Reason: Insomnia Last Admin: 11/29/22 22:51 Dose: 100 mg Allergies Allergies Allergy/AdvReac Type Severity Reaction Status Date / Time bupropion [From Wellbutrin] Allergy Unknown Verified 11/15/22 23:35 Assessment & Plan Assessment & Plan (1) Bipolar 1 disorder: Status: Acute Code(s): F31.9 - Bipolar disorder, unspecified Plan Patient is a 42 year old female with hx of bipolar d/o who self presented to [facility] ER after calling 911 and reporting she was in crisis . When arrived to ER, pt struggled to engage with staff and presented with mumbled speech. Collateral was obtained from and sister. Plan: CV 1:1 Obtain collateral [place] 600mg PO BID *HOLD 11/17: Patient continues to have circumstantial thought content and paranoid delusions. Patient reports she want to live but knows if I have medications then I'll take them all . Patient reports she feels safe on the unit. Retracted 3 day. Will increase lithium and vraylar doses. Patient aware and is in agreement. 11/18: Dr. Obando and T/W met with patient and sister today. Pt continues with racing thoughts and circumstantial thought content. Denies suicidal ideation. Compton to be increased to 600mg PO BID; patient aware. CIWA D/C'd d/t scoring low and no withdrawal symptoms. chemical tank worker to obtain records from [facility] with patients consent. 11/19: Patient reports difficulty sleeping. Continues with rapid speech, racing thoughts and circumstantial thought content. Signed 3 day last night, Patient reports she will retract on Tuesday if I don't feel better . Will add Seroquel at bedtime for sleep. seroquel added for insomnia monitor bp watch for s/e confusion with amlodipine lithium monitor creat watch for edema 11/20: No changes to current treatment regimen as Seroquel just added and patient declining any other changes 11/21: no changes- encourage current meds 11/22: Patient presents worsening in symptoms since Tuesday. Increased disorganization and paranoia; patient reports she has not slept. Ordered Ativan 2mg PO once, pt slept for 2.5 hours then woke up; Was then given Seroquel 50mg PO once; waiting on results. Patient retracted 3 day. Labs ordered, lithium level 0.83. Potassium 3.1; ordered hospitalist consult. UA pending. 11/23 pt appears delirious- if related to alcohol withdrawal, delirium tremens often seen> 96 hrs after last drink. Otherwise wondering if lithium. will hold lithium. give ativan 2mg and schedule ativan 2mg po qhs. d/c ambien. May need much higher doses if in DTs. 11/24: Patient continues disorganized, however presents with better insight. States she knows she is being delusional and not making sense . She was able to vocalize medications that have helped her in the past. D/C ativan; possibly making her confused. Started on risperdal d/t patient reporting she had never tried. Agreed to trial. Risks/benefits discussed. Starting Depakote to assist in decreasing dannielle. T/W spoke to sister (Constanza); gave her update on patient's treatment plan. Sister expressed gratitude towards staff/communication. 11/25: Patient reports feeling better than yesterday. Continues to present disorganized; singing at times. Is able to have a logical conversation at times. Was given a one time dose of Haldol 5mg PO; pt continues to report she is not sleeping at night. Waiting on collateral from [facility]. 11/26: Pt presents much approved today. Presents calm,with slower speech, not as accelerated. Pt stated, I feel better today; I slept . Continues to have disorganized thought process but is able to have logical conversations in-between the disorganization. Pt stated, my thoughts are very disorganized . Was able to attend meditation group. Continue with current tx plan. 11/27: more organized. still not sleeping. agreeable to increase VPA to 1000 mg daily and to reschedule all to HS. 11/28: slept about 3-4 hours last night. bizarrely repeatedly lowering herself to the floor in the past 24 H: i think i'm gonna fall. continue current mgmt for today. 11/29: slept 5 hours overnight, more fluid and spontaneous today, more organized. DC risperidone per pt request, start abilify. concern of weight gain. continue VPA 1000 mg QHS. 11/30: Pt reports mood is a lot better ; reports sleeping well last night but continues to feel tired. Would like a therapist who can focus on her trauma. Continue current tx plan. Patient educated on: diagnosis, medication risk/benefits and therapeutic strategies Informed Consent: understands Reason for continued inpatient stay Substantial Risk for: med/psych decompensation Time Spent With Patient Time: Total time managing care of this patient today ____ minutes.
[2022-11-30 13:00] VITALS: BP 109/80; PULSE 79; RESP 16; TEMP 36.9; O2SAT 100
[2022-11-30] MEDS: Nicotine Polacrilex Lozenge 4 MG LOZENGE BUCCAL (14:27)
[2022-11-30 16:09] LABS: Ammonia 91 umol/L (13-55)
[2022-11-30 16:13] LABS: Valproate 75.2 mcg/mL (50.0-100.0)
[2022-11-30 16:17] LABS: Alanine Aminotransferase 24 U/L (0-31); Albumin Level 3.4 g/dL (3.5-5.0); Alkaline Phosphatase 40 U/L (39-117); Aspartate Amino Transferase 27 U/L (5-31); Bilirubin Direct 0.2 mg/dL (0.0-0.5); Bilirubin Total 0.3 mg/dL (0.0-1.0); Total Protein 5.1 g/dL (6.5-8.0)
[2022-11-30 20:40] VITALS: BP 121/88; PULSE 80; RESP 16; TEMP 36.4; O2SAT 95
[2022-11-30] MEDS: traZODone HCL 100 MG TABLET PO ×2 (20:45→23:21)
[2022-11-30] MEDS: Divalproex Sodium ER 500 MG TAB.ER.24H 1000 MG PO (20:45)
[2022-11-30] MEDS: Magnesium Hydrox/Alum Hydrox 30 ML ORAL.SUSP PO (21:31)
[2022-12-01] MEDS: cloNIDine HCL 0.1 MG TABLET PO ×3 (00:12→23:19)
[2022-12-01] MEDS: amLODIPine Besylate 10 MG TABLET PO (08:41)
[2022-12-01] MEDS: Thiamine HCL 100 MG TABLET PO (08:42)
[2022-12-01] MEDS: ARIPiprazole 5 MG TABLET PO (08:42)
[2022-12-01] MEDS: Acetaminophen 325 MG TABLET 650 MG PO (08:42)
[2022-12-01 09:00] VITALS: BP 118/78; PULSE 88; RESP 16; TEMP 36.6; O2SAT 95
--- NOTE | 2022-12-01 09:41 | P.PNPSI_ITS ---
Subjective Subjective Date of Service: 12/01/22 Reason For Visit: Bipolar Disorder Subjective Notes: Conditional Voluntary Interim History: Reviewed in team and with Dr. Obando. Patient reports feeling good today. Patient stated, I'm not paranoid now. I don't remember walking into other people's rooms . 1:1 discontinued, placed on 5 minute checks. Patient reports not sleeping well at night Patient stated, my mind is always working even though I'm tired. I'm taking a lot of naps . Medication Compliance: Yes Attending Groups: Intermittent Review of Systems Constitutional: Reports as per HPI Eyes: Reports as per HPI Reports as per HPI Cardiovascular: Reports as per HPI Respiratory: Reports as per HPI Gastrointestinal: Reports as per HPI Genitourinary: Reports as per HPI Musculoskeletal: Reports as per HPI Skin/Breast: Reports as per HPI Reports as per HPI Psychiatric: Reports as per HPI Endocrine: Reports as per HPI Hematologic/Lymphatic: Reports as per HPI Allergic/Immunologic: Reports as per HPI Mental Status Exam Mental Status Exam Narrative: Pt is alert and oriented; behavior is cooperative, friendly and calm; patient is not in distress; dressed in casual attire; mood is described as good ; eye contact appropriate; Speech is normal rate, volume and prosody and not pressure d; no psychomotor agitation/retardation present; thought process is organized and goal directed; Thought content is on tangential; otherwise pertinent to relevant topics and without any delusional content, paranoid ideations or grandiosity; denies any SI/HI. There is no evidence of perceptual disturbance. Patients insight and judgment are poor but improving. Diagnostics Vital Signs (24Hr): Vital Signs - 24 hr 11/30/22 13:00 11/30/22 20:40 12/01/22 09:00 Temperature 98.4 F 97.6 F 97.8 F Pulse Rate 79 80 88 Respiratory Rate 16 16 16 Blood Pressure 109/80 121/88 118/78 Pulse Oximetry 100 95 95 Oxygen Delivery Method Room Air Room Air Room Air BMI result Body Mass Index 22.0 Labs 11/23/22 13:00 Labs: Laboratory Results - last 48 hr 11/30/22 11/30/22 11/30/22 15:41 15:41 15:41 Total Bilirubin 0.3 Direct Bilirubin 0.2 AST 27 ALT 24 Alkaline Phosphatase 40 Ammonia 91 H Total Protein 5.1 L Albumin 3.4 L Valproic Acid 75.2 Medications Medications Current Medications Acetaminophen (Acetaminophen 325 Mg Tablet) 650 mg PO Q6H PRN PRN Reason: Headache/Pain Mild Scale (1-3) Last Admin: 12/01/22 08:42 Dose: 650 mg Al Hydroxide/Mg Hydroxide (Magnesium Hydrox/Alum Hydrox 30 Ml Oral.Susp) 30 ml PO Q6H PRN PRN Reason: Heartburn/Nausea Last Admin: 11/30/22 21:31 Dose: 30 ml Amlodipine Besylate (Amlodipine Besylate 10 Mg Tablet) 10 mg PO DAILY JAKE; Protocol Last Admin: 12/01/22 08:41 Dose: 10 mg Aripiprazole (Aripiprazole 5 Mg Tablet) 5 mg PO DAILY [facility] Last Admin: 12/01/22 08:42 Dose: 5 mg Clonidine HCl (Clonidine Hcl 0.1 Mg Tablet) 0.1 mg PO TID PRN; Protocol PRN Reason: Anxiety Last Admin: 12/01/22 00:12 Dose: 0.1 mg Divalproex Sodium (Divalproex Sodium Er 500 Mg Tab.Er.24h) 1,000 mg PO BEDTIME JAKE Last Admin: 11/30/22 20:45 Dose: 1,000 mg Hiram Carbonate (Hiram Carbonate Er 300 Mg Tablet.Er) 600 mg PO BID [facility] Last Admin: 11/25/22 08:28 Dose: 600 mg Magnesium Hydroxide (Milk Of Magnesia 30 Ml Oral.Susp) 30 ml PO DAILY PRN PRN Reason: Constipation Nicotine Polacrilex (Nicotine Polacrilex Lozenge 4 Mg Lozenge) 4 mg BUCCAL Q2H PRN PRN Reason: Nicotine Cravings Last Admin: 11/30/22 14:27 Dose: 4 mg Thiamine HCl (Thiamine Hcl 100 Mg Tablet) 100 mg PO DAILY [facility] Last Admin: 12/01/22 08:42 Dose: 100 mg Trazodone HCl (Trazodone Hcl 100 Mg Tablet) 100 mg PO BEDTIME MRX1 PRN PRN Reason: Insomnia Last Admin: 11/30/22 23:21 Dose: 100 mg Allergies Allergies Allergy/AdvReac Type Severity Reaction Status Date / Time bupropion [From Wellbutrin] Allergy Unknown Verified 11/15/22 23:35 Assessment & Plan Assessment & Plan (1) Bipolar 1 disorder: Status: Acute Code(s): F31.9 - Bipolar disorder, unspecified Plan Patient is a 42 year old female with hx of bipolar d/o who self presented to [facility] ER after calling 911 and reporting she was in crisis . When arrived to ER, pt struggled to engage with staff and presented with mumbled speech. Collateral was obtained from and sister. Plan: CV 5 minute checks. Obtain collateral 11/17: Patient continues to have circumstantial thought content and paranoid delusions. Patient reports she want to live but knows if I have medications then I'll take them all . Patient reports she feels safe on the unit. Retracted 3 day. Will increase lithium and vraylar doses. Patient aware and is in agreement. 11/18: Dr. Obando and T/W met with patient and sister today. Pt continues with racing thoughts and circumstantial thought content. Denies suicidal ideation. Hiram to be increased to 600mg PO BID; patient aware. CIWA D/C'd d/t scoring low and no withdrawal symptoms. child welfare social worker to obtain records from [facility] and [facility] with patients consent. 11/19: Patient reports difficulty sleeping. Continues with rapid speech, racing thoughts and circumstantial thought content. Signed 3 day last night, Patient reports she will retract on Tuesday if I don't feel better . Will add Seroquel at bedtime for sleep. seroquel added for insomnia monitor bp watch for s/e confusion with amlodipine lithium monitor creat watch for edema 11/20: No changes to current treatment regimen as Seroquel just added and patient declining any other changes 11/21: no changes- encourage current meds 11/22: Patient presents worsening in symptoms since Tuesday. Increased disorganization and paranoia; patient reports she has not slept. Ordered Ativan 2mg PO once, pt slept for 2.5 hours then woke up; Was then given Seroquel 50mg PO once; waiting on results. Patient retracted 3 day. Labs ordered, lithium level 0.83. Potassium 3.1; ordered hospitalist consult. UA pending. 11/23 pt appears delirious- if related to alcohol withdrawal, delirium tremens often seen> 96 hrs after last drink. Otherwise wondering if lithium. will hold lithium. give ativan 2mg and schedule ativan 2mg po qhs. d/c ambien. May need much higher doses if in DTs. 7/5: Patient continues disorganized, however presents with better insight. States she knows she is being delusional and not making sense . She was able to vocalize medications that have helped her in the past. D/C ativan; possibly making her confused. Started on risperdal d/t patient reporting she had never tried. Agreed to trial. Risks/benefits discussed. Starting Depakote to assist in decreasing dannielle. T/W spoke to sister (Constanza); gave her update on patient's treatment plan. Sister expressed gratitude towards staff/communication. 11/25: Patient reports feeling better than yesterday. Continues to present disorganized; singing at times. Is able to have a logical conversation at times. Was given a one time dose of Haldol 5mg PO; pt continues to report she is not sleeping at night. Waiting on collateral from [facility] and [facility]. 11/26: Pt presents much approved today. Presents calm,with slower speech, not as accelerated. Pt stated, I feel better today; I slept . Continues to have disorganized thought process but is able to have logical conversations in- between the disorganization. Pt stated, my thoughts are very disorganized . Was able to attend meditation group. Continue with current tx plan. 11/27: more organized. still not sleeping. agreeable to increase VPA to 1000 mg daily and to reschedule all to HS. 11/28: slept about 3-4 hours last night. bizarrely repeatedly lowering herself to the floor in the past 24 H: i think i'm gonna fall. continue current mgmt for today. 11/29: slept 5 hours overnight, more fluid and spontaneous today, more organized. DC risperidone per pt request, start abilify. concern of weight gain. continue VPA 1000 mg QHS. 11/30: Pt reports mood is a lot better ; reports sleeping well last night but continues to feel tired. Would like a therapist who can focus on her trauma. Continue current tx plan. 12/01: 1:1 discontinued, placed on 5 minute checks. Pt reports feeling better and not paranoid . Continues with tangential thought content. Continues to not sleep well at night. Increased ammonia level;Will give lactulose, hold Depakote and increase Abilify to 10mg PO daily. Patient notified. Patient educated on: diagnosis, medication risk/benefits, therapeutic strategies and medical condition Informed Consent: understands Reason for continued inpatient stay Substantial Risk for: med/psych decompensation Time Spent With Patient Time: Total time managing care of this patient today __30__ minutes.
[2022-12-01 13:00] VITALS: BP 112/68; PULSE 81; RESP 16; TEMP 36.6; O2SAT 96
[2022-12-01] MEDS: Nicotine Polacrilex Lozenge 4 MG LOZENGE BUCCAL (14:14)
[2022-12-01] MEDS: Lactulose 20 GM/30 ML SOLUTION 15 GM PO ×2 (16:05→20:10)
[2022-12-01] MEDS: Magnesium Hydrox/Alum Hydrox 30 ML ORAL.SUSP PO (17:11)
[2022-12-01 20:04] VITALS: BP 101/71; PULSE 69; RESP 18; TEMP 36.4; O2SAT 100
[2022-12-01] MEDS: traZODone HCL 100 MG TABLET PO ×2 (20:10→21:13)
[2022-12-01 23:10] VITALS: BP 112/75; PULSE 75
[2022-12-02] MEDS: traZODone HCL 100 MG TABLET PO ×3 (02:12→22:21)
[2022-12-02 07:00] VITALS: BMI 22.0
[2022-12-02 09:00] VITALS: BP 110/69; PULSE 63; RESP 16; TEMP 36.3; O2SAT 99
[2022-12-02] MEDS: amLODIPine Besylate 10 MG TABLET PO (09:24)
[2022-12-02] MEDS: Thiamine HCL 100 MG TABLET PO (09:24)
[2022-12-02] MEDS: ARIPiprazole 10 MG TABLET PO (09:24)
[2022-12-02] MEDS: Lactulose 20 GM/30 ML SOLUTION 15 GM PO ×2 (09:56→21:46)
--- NOTE | 2022-12-02 10:31 | P.PNPSI_ITS ---
Subjective Subjective Date of Service: 12/02/22 Reason For Visit: Bipolar Disorder Subjective Notes: Conditional Voluntary Interim History: Reviewed in team and with Dr. Obando. Patient reports feeling good today. Pt continues to report not sleeping well at night. Patient stated, I'm exhausted. I feel like I'm disorganized . Patient's ammonia level today is 26. Patient notified. Lactulose will be decreased to once a day. Will restart depakote on a lower dose and continue to monitor. Medication Compliance: Yes Side effects from medications: No Attending Groups: Yes Review of Systems Review of Systems Unremarkable Constitutional: Reports as per HPI Eyes: Reports as per HPI Reports as per HPI Cardiovascular: Reports as per HPI Respiratory: Reports as per HPI Gastrointestinal: Reports as per HPI Genitourinary: Reports as per HPI Musculoskeletal: Reports as per HPI Skin/Breast: Reports as per HPI Reports as per HPI Psychiatric: Reports as per HPI Endocrine: Reports as per HPI Hematologic/Lymphatic: Reports as per HPI Allergic/Immunologic: Reports as per HPI Mental Status Exam Mental Status Exam Narrative: Pt is alert and oriented; behavior is cooperative, friendly and calm; patient is not in distress; dressed in casual attire; mood is described as good ; eye contact appropriate; Speech is normal rate, volume and prosody and not pressured; no psychomotor agitation/retardation present; thought process is organized and goal directed; Thought content is tangential; otherwise pertinent to relevant topics and without any delusional content, paranoid ideations or grandiosity; denies any SI/HI. There is no evidence of perceptual disturbance. Patients insight and judgment are poor but improving. Diagnostics Vital Signs (24Hr): Vital Signs - 24 hr 12/01/22 13:00 12/01/22 20:04 12/01/22 23:10 Temperature 97.9 F 97.6 F Pulse Rate 81 69 75 Respiratory Rate 16 18 Blood Pressure 112/68 101/71 112/75 Pulse Oximetry 96 100 Oxygen Delivery Method Room Air Room Air 12/02/22 09:00 Temperature 97.3 F Pulse Rate 63 Respiratory Rate 16 Blood Pressure 110/69 Pulse Oximetry 99 Oxygen Delivery Method Room Air BMI result Body Mass Index 22.0 Labs 11/23/22 13:00 Labs: Laboratory Results - last 48 hr 11/30/22 11/30/22 11/30/22 15:41 15:41 15:41 Total Bilirubin 0.3 Direct Bilirubin 0.2 AST 27 ALT 24 Alkaline Phosphatase 40 Ammonia 91 H Total Protein 5.1 L Albumin 3.4 L Valproic Acid 75.2 Medications Medications Current Medications Acetaminophen (Acetaminophen 325 Mg Tablet) 650 mg PO Q6H PRN PRN Reason: Headache/Pain Mild Scale (1-3) Last Admin: 12/01/22 08:42 Dose: 650 mg Al Hydroxide/Mg Hydroxide (Magnesium Hydrox/Alum Hydrox 30 Ml Oral.Susp) 30 ml PO Q6H PRN PRN Reason: Heartburn/Nausea Last Admin: 12/01/22 17:11 Dose: 30 ml Amlodipine Besylate (Amlodipine Besylate 10 Mg Tablet) 10 mg PO DAILY [facility]; Protocol Last Admin: 12/02/22 09:24 Dose: 10 mg Aripiprazole (Aripiprazole 10 Mg Tablet) 10 mg PO DAILY JAKE Last Admin: 12/02/22 09:24 Dose: 10 mg Clonidine HCl (Clonidine Hcl 0.1 Mg Tablet) 0.1 mg PO TID PRN; Protocol PRN Reason: Anxiety Last Admin: 12/01/22 23:19 Dose: 0.1 mg Lactulose (Lactulose 20 Gm/30 Ml Solution) 15 gm PO TID JAKE Last Admin: 12/02/22 09:56 Dose: 15 gm Magnesium Hydroxide (Milk Of Magnesia 30 Ml Oral.Susp) 30 ml PO DAILY PRN PRN Reason: Constipation Nicotine Polacrilex (Nicotine Polacrilex Lozenge 4 Mg Lozenge) 4 mg BUCCAL Q2H PRN PRN Reason: Nicotine Cravings Last Admin: 12/01/22 14:14 Dose: 4 mg Thiamine HCl (Thiamine Hcl 100 Mg Tablet) 100 mg PO DAILY [facility] Last Admin: 12/02/22 09:24 Dose: 100 mg Trazodone HCl (Trazodone Hcl 100 Mg Tablet) 100 mg PO BEDTIME MRX1 PRN PRN Reason: Insomnia Last Admin: 12/01/22 21:13 Dose: 100 mg Allergies Allergies Allergy/AdvReac Type Severity Reaction Status Date / Time bupropion [From Wellbutrin] Allergy Unknown Verified 11/15/22 23:35 Assessment & Plan Assessment & Plan (1) Bipolar 1 disorder: Status: Acute Code(s): F31.9 - Bipolar disorder, unspecified Plan Patient is a 42 year old female with hx of bipolar d/o who self presented to [facility] ER after calling 911 and reporting she was in crisis . When arrived to ER, pt struggled to engage with staff and presented with mumbled speech. Collateral was obtained from and sister. Plan: CV 15 minute checks. Obtain collateral 11/17: Patient continues to have circumstantial thought content and paranoid delusions. Patient reports she want to live but knows if I have medications then I'll take them all . Patient reports she feels safe on the unit. Retracted 3 day. Will increase lithium and vraylar doses. Patient aware and is in agreement. 11/18: Dr. Obando and T/W met with patient and sister today. Pt continues with racing thoughts and circumstantial thought content. Denies suicidal ideation. [place] to be increased to 600mg PO BID; patient aware. CIWA D/C'd d/t scoring low and no withdrawal symptoms. 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 11/19: Patient reports difficulty sleeping. Continues with rapid speech, racing thoughts and circumstantial thought content. Signed 3 day last night, Patient reports she will retract on Tuesday if I don't feel better . Will add Seroquel at bedtime for sleep. seroquel added for insomnia monitor bp watch for s/e confusion with amlodipine lithium monitor creat watch for edema 11/20: No changes to current treatment regimen as Seroquel just added and patient declining any other changes 11/21: no changes- encourage current meds 11/22: Patient presents worsening in symptoms since Tuesday. Increased disorg anization and paranoia; patient reports she has not slept. Ordered Ativan 2mg PO once, pt slept for 2.5 hours then woke up; Was then given Seroquel 50mg PO once; waiting on results. Patient retracted 3 day. Labs ordered, lithium level 0.83. Potassium 3.1; ordered hospitalist consult. UA pending. 11/23 pt appears delirious- if related to alcohol withdrawal, delirium tremens often seen> 96 hrs after last drink. Otherwise wondering if lithium. will hold lithium. give ativan 2mg and schedule ativan 2mg po qhs. d/c ambien. May need much higher doses if in DTs. 11/24: Patient continues disorganized, however presents with better insight. States she knows she is being delusional and not making sense . She was able to vocalize medications that have helped her in the past. D/C ativan; possibly making her confused. Started on risperdal d/t patient reporting she had never tried. Agreed to trial. Risks/benefits discussed. Starting Depakote to assist in decreasing dannielle. T/W spoke to sister (Constanza); gave her update on patient's treatment plan. Sister expressed gratitude towards staff/communication. 11/25: Patient reports feeling better than yesterday. Continues to present disorganized; singing at times. Is able to have a logical conversation at times. Was given a one time dose of Haldol 5mg PO; pt continues to report she is not sleeping at night. Waiting on collateral from [facility] and [facility]. 11/26: Pt presents much approved today. Presents calm,with slower speech, not as accelerated. Pt stated, I feel better today; I slept . Continues to have disorganized thought process but is able to have logical conversations in- between the disorganization. Pt stated, my thoughts are very disorganized . Was able to attend meditation group. Continue with current tx plan. 11/27: more organized. still not sleeping. agreeable to increase VPA to 1000 mg daily and to reschedule all to HS. 11/28: slept about 3-4 hours last night. bizarrely repeatedly lowering herself to the floor in the past 24 H: i think i'm gonna fall. continue current mgmt for today. 11/29: slept 5 hours overnight, more fluid and spontaneous today, more organized. DC risperidone per pt request, start abilify. concern of weight gain. continue VPA 1000 mg QHS. 11/30: Pt reports mood is a lot better ; reports sleeping well last night but continues to feel tired. Would like a therapist who can focus on her trauma. Continue current tx plan. 12/01: 1:1 discontinued, placed on 5 minute checks. Pt reports feeling better and not paranoid . Continues with tangential thought content. Continues to not sleep well at night. Increased ammonia level;Will give lactulose, hold Depakote and increase Abilify to 10mg PO daily. Patient notified. 12/02: Pt continues to report not sleeping well. Ammonia level today is 26. Patient notified. Lactulose will be decreased to once a day. Will restart Depakote 250mg PO BID and continue to monitor. Patient placed back on 15 minute safety checks. Patient educated on: diagnosis, medication risk/benefits and therapeutic strategies Informed Consent: understands Reason for continued inpatient stay Substantial Risk for: med/psych decompensation Time Spent With Patient Time: Total time managing care of this patient today _30___ minutes.
[2022-12-02 10:36] LABS: Ammonia 26 umol/L (13-55)
[2022-12-02] MEDS: Divalproex Sodium 250 MG TABLET.DR PO ×2 (11:21→21:46)
[2022-12-02] MEDS: Nicotine Polacrilex Lozenge 4 MG LOZENGE BUCCAL (14:02)
[2022-12-02] MEDS: Magnesium Hydrox/Alum Hydrox 30 ML ORAL.SUSP PO (15:16)
[2022-12-02 21:32] VITALS: BP 110/80; PULSE 80; RESP 16; O2SAT 97
[2022-12-02] MEDS: cloNIDine HCL 0.1 MG TABLET PO (22:21)
--- NOTE | 2022-12-03 01:00 | PC.NURSE ---
Pt awoke and said she was having a panic attack. requested this RN take her BP. BP was 103/71 and HR was 85. Pt then refused Clonidine and returned to bed.
[2022-12-03] MEDS: LORazepam 1 MG TABLET 2 MG PO (02:35)
[2022-12-03 10:00] VITALS: BP 112/78; PULSE 80; RESP 16; TEMP 36.3; O2SAT 97
[2022-12-03] MEDS: amLODIPine Besylate 10 MG TABLET PO (10:16)
[2022-12-03] MEDS: Thiamine HCL 100 MG TABLET PO (10:16)
[2022-12-03] MEDS: Divalproex Sodium 250 MG TABLET.DR PO ×2 (10:16→20:35)
[2022-12-03] MEDS: ARIPiprazole 10 MG TABLET PO (10:17)
--- NOTE | 2022-12-03 10:35 | P.PNPSI_ITS ---
Subjective Subjective Date of Service: 12/03/22 Reason For Visit: Bipolar Disorder Subjective Notes: Conditional Voluntary Interim History: Reviewed in team and with Dr. Obando. Patient reports feeling okay today. Continues to state that she is not sleeping well. Patient reports she does not feel as clear as yesterday . Tangential during 1:1. Patient focused on past trauma and what her she is diagnosed with. Retracted 3 day. Medication Compliance: Yes Attending Groups: Yes Review of Systems Review of Systems Unremarkable Constitutional: Reports as per HPI Eyes: Reports as per HPI Reports as per HPI Cardiovascular: Reports as per HPI Respiratory: Reports as per HPI Gastrointestinal: Reports as per HPI Genitourinary: Reports as per HPI Musculoskeletal: Reports as per HPI Skin/Breast: Reports as per HPI Reports as per HPI Psychiatric: Reports as per HPI Endocrine: Reports as per HPI Hematologic/Lymphatic: Reports as per HPI Allergic/Immunologic: Reports as per HPI Mental Status Exam Mental Status Exam Narrative: Pt is alert and oriented; behavior is cooperative, friendly and calm; patient is not in distress; dressed in casual attire; mood is described as okay ; eye contact appropriate; Speech is normal rate, volume and prosody and not pressured; no psychomotor agitation/retardation present; thought process is organized and goal directed; Thought content is tangential; otherwise pertinent to relevant topics and without any delusional content, paranoid ideations or grandiosity; denies any SI/HI. There is no evidence of perceptual disturbance. Patients insight and judgment are poor but improving. Diagnostics Vital Signs (24Hr): Vital Signs - 24 hr 12/02/22 21:32 Pulse Rate 80 Respiratory Rate 16 Blood Pressure 110/80 Pulse Oximetry 97 Oxygen Delivery Method Room Air BMI result Body Mass Index 22.0 Labs 11/23/22 13:00 Labs: Laboratory Results - last 48 hr 12/02/22 10:03 Ammonia 26 Medications Medications Current Medications Acetaminophen (Acetaminophen 325 Mg Tablet) 650 mg PO Q6H PRN PRN Reason: Headache/Pain Mild Scale (1-3) Last Admin: 12/01/22 08:42 Dose: 650 mg Al Hydroxide/Mg Hydroxide (Magnesium Hydrox/Alum Hydrox 30 Ml Oral.Susp) 30 ml PO Q6H PRN PRN Reason: Heartburn/Nausea Last Admin: 12/02/22 15:16 Dose: 30 ml Amlodipine Besylate (Amlodipine Besylate 10 Mg Tablet) 10 mg PO DAILY [facility]; Protocol Last Admin: 12/03/22 10:16 Dose: 10 mg Aripiprazole (Aripiprazole 10 Mg Tablet) 10 mg PO DAILY [facility] Last Admin: 12/03/22 10:17 Dose: 10 mg Clonidine HCl (Clonidine Hcl 0.1 Mg Tablet) 0.1 mg PO TID PRN; Protocol PRN Reason: Anxiety Last Admin: 12/02/22 22:21 Dose: 0.1 mg Divalproex Sodium (Divalproex Sodium 250 Mg Tablet.Dr) 250 mg PO BID [facility] Last Admin: 12/03/22 10:16 Dose: 250 mg Lactulose (Lactulose 20 Gm/30 Ml Solution) 15 gm PO BEDTIME JAKE Last Admin: 12/02/22 21:46 Dose: 15 gm Magnesium Hydroxide (Milk Of Magnesia 30 Ml Oral.Susp) 30 ml PO DAILY PRN PRN Reason: Constipation Nicotine Polacrilex (Nicotine Polacrilex Lozenge 4 Mg Lozenge) 4 mg BUCCAL Q2H PRN PRN Reason: Nicotine Cravings Last Admin: 12/02/22 14:02 Dose: 4 mg Thiamine HCl (Thiamine Hcl 100 Mg Tablet) 100 mg PO DAILY [facility] Last Admin: 12/03/22 10:16 Dose: 100 mg Trazodone HCl (Trazodone Hcl 100 Mg Tablet) 100 mg PO BEDTIME MRX1 PRN PRN Reason: Insomnia Last Admin: 12/02/22 22:21 Dose: 100 mg Allergies Allergies Allergy/AdvReac Type Severity Reaction Status Date / Time bupropion [From Wellbutrin] Allergy Unknown Verified 11/15/22 23:35 Assessment & Plan Assessment & Plan (1) Bipolar 1 disorder: Status: Acute Code(s): F31.9 - Bipolar disorder, unspecified Plan Patient is a 42 year old female with hx of bipolar d/o who self presented to [facility] ER after calling 911 and reporting she was in crisis . When arrived to ER, pt struggled to engage with staff and presented with mumbled speech. Collateral was obtained from and sister. Plan: CV 15 minute checks. Obtain collateral 11/17: Patient continues to have circumstantial thought content and paranoid delusions. Patient reports she want to live but knows if I have medications then I'll take them all . Patient reports she feels safe on the unit. Retracted 3 day. Will increase lithium and vraylar doses. Patient aware and is in agreement. 11/18: Dr. Obando and T/W met with patient and sister today. Pt continues with racing thoughts and circumstantial thought content. Denies suicidal ideation. Ruffin to be increased to 600mg PO BID; patient aware. CIWA D/C'd d/t scoring low and no withdrawal symptoms. 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 11/19: Patient reports difficulty sleeping. Continues with rapid speech, racing thoughts and circumstantial thought content. Signed 3 day last night, Patient reports she will retract on Tuesday if I don't feel better . Will add Seroquel at bedtime for sleep. seroquel added for insomnia monitor bp watch for s/e confusion with amlodipine lithium monitor creat watch for edema 11/20: No changes to current treatment regimen as Seroquel just added and patient declining any other changes 11/21: no changes- encourage current meds 11/22: Patient presents worsening in symptoms since Tuesday. Increased disorganization and paranoia; patient reports she has not slept. Ordered Ativan 2mg PO once, pt slept for 2.5 hours then woke up; Was then given Seroquel 50mg PO once; waiting on results. Patient retracted 3 day. Labs ordered, lithium level 0.83. Potassium 3.1; ordered hospitalist consult. UA pending. 11/23 pt appears delirious- if related to alcohol withdrawal, delirium tremens often seen> 96 hrs after last drink. Otherwise wondering if lithium. will hold lithium. give ativan 2mg and schedule ativan 2mg po qhs. d/c ambien. May need much higher doses if in DTs. 11/24: Patient continues disorganized, however presents with better insight. States she knows she is being delusional and not making sense . She was able to vocalize medications that have helped her in the past. D/C ativan; possibly making her confused. Started on risperdal d/t patient reporting she had never tried. Agreed to trial. Risks/benefits discussed. Starting Depakote to assist in decreasing dannielle. T/W spoke to sister (Constanza); gave her update on patient's treatment plan. Sister expressed gratitude towards staff/communication. 11/25: Patient reports feeling better than yesterday. Continues to present disorganized; singing at times. Is able to have a logical conversation at times. Was given a one time dose of Haldol 5mg PO; pt continues to report she is not sleeping at night. Waiting on collateral from [facility] and [facility]. 11/26: Pt presents much approved today. Presents calm,with slower speech, not as accelerated. Pt stated, I feel better today; I slept . Continues to have di sorganized thought process but is able to have logical conversations in-between the disorganization. Pt stated, my thoughts are very disorganized . Was able to attend meditation group. Continue with current tx plan. 11/27: more organized. still not sleeping. agreeable to increase VPA to 1000 mg daily and to reschedule all to HS. 11/28: slept about 3-4 hours last night. bizarrely repeatedly lowering herself to the floor in the past 24 H: i think i'm gonna fall. continue current mgmt for today. 11/29: slept 5 hours overnight, more fluid and spontaneous today, more organized. DC risperidone per pt request, start abilify. concern of weight gain. continue VPA 1000 mg QHS. 11/30: Pt reports mood is a lot better ; reports sleeping well last night but continues to feel tired. Would like a therapist who can focus on her trauma. Continue current tx plan. 12/01: 1:1 discontinued, placed on 5 minute checks. Pt reports feeling better and not paranoid . Continues with tangential thought content. Continues to not sleep well at night. Increased ammonia level;Will give lactulose, hold Depakote and increase Abilify to 10mg PO daily. Patient notified. 12/02: Pt continues to report not sleeping well. Ammonia level today is 26. Patient notified. Lactulose will be decreased to once a day. Will restart Depakote 250mg PO BID and continue to monitor. Patient placed back on 15 minute safety checks. 12/03: Continues not sleeping well. Patient reports she does not feel as clear as yesterday . Tangential during 1:1. Patient focused on past trauma. Retracted 3 day. Started Klonopin 1mg PO bedtime. Patient educated on: diagnosis, medication risk/benefits and therapeutic strategies Informed Consent: understands Reason for continued inpatient stay Substantial Risk for: med/psych decompensation Time Spent With Patient Time: Total time managing care of this patient today _30___ minutes.
[2022-12-03 20:15] VITALS: BP 98/64; PULSE 80; RESP 16; TEMP 36.4; O2SAT 99
[2022-12-03] MEDS: clonazePAM 1 MG TABLET PO (20:35)
[2022-12-03] MEDS: Lactulose 20 GM/30 ML SOLUTION 15 GM PO (20:35)
[2022-12-04] MEDS: cloNIDine HCL 0.1 MG TABLET PO (01:51)
[2022-12-04 01:55] VITALS: BP 107/77; PULSE 80; RESP 16
--- NOTE | 2022-12-04 08:41 | P.PNPSI_ITS ---
Subjective Subjective Date of Service: 12/04/22 Reason For Visit: Bipolar Disorder Subjective Notes: Conditional Voluntary Medical Problems Affecting Mental Status: No Interim History: Reports that she didn't sleep well. States she had to get up to urinate several times. No dysuria. Noted to be irritable and disorganized. Looking more disorganized since being off of 1:1. Taking meds as ordered. States she retracted 3 day notice. Medication Compliance: Yes Side effects from medications: No Attending Groups: Intermittent Review of Systems Acute medical concerns: No Medical Review of Systems: unchanged Mental Status Exam Mental Status Exam Patient Appearance: Unkempt Patient Orientation: Person and Place Level of Consciousness: Alert Patient Behavior: Cooperative and Distractible Mood Description: Anxious Patient Cognition Impaired: No Ability to Follow Directions: Good Speech Pattern: Pressured Memory Description: Intact Hallucinations: None Delusions: Not Present Thought Process: Confusion Thought Content: positive for Disorganized Depressive Symptoms: Crying Spells and Thoughts of /Suicide (passive SI) Judgement: Fair Diagnostics Vital Signs (24Hr): Vital Signs - 24 hr 12/03/22 10:00 12/03/22 20:15 12/04/22 01:55 Temperature 97.4 F 97.6 F Pulse Rate 80 80 80 Respiratory Rate 16 16 16 Blood Pressure 112/78 98/64 107/77 Pulse Oximetry 97 99 Oxygen Delivery Method Room Air Room Air BMI result Body Mass Index 22.0 Labs 11/23/22 13:00 Labs: Laboratory Results - last 48 hr 12/02/22 10:03 Ammonia 26 Medications Medications Current Medications Acetaminophen (Acetaminophen 325 Mg Tablet) 650 mg PO Q6H PRN PRN Reason: Headache/Pain Mild Scale (1-3) Last Admin: 12/01/22 08:42 Dose: 650 mg Al Hydroxide/Mg Hydroxide (Magnesium Hydrox/Alum Hydrox 30 Ml Oral.Susp) 30 ml PO Q6H PRN PRN Reason: Heartburn/Nausea Last Admin: 12/02/22 15:16 Dose: 30 ml Amlodipine Besylate (Amlodipine Besylate 10 Mg Tablet) 10 mg PO DAILY JAKE; P rotocol Last Admin: 12/03/22 10:16 Dose: 10 mg Aripiprazole (Aripiprazole 10 Mg Tablet) 10 mg PO DAILY JAKE Last Admin: 12/03/22 10:17 Dose: 10 mg Clonazepam (Clonazepam 1 Mg Tablet) 1 mg PO BEDTIME JAKE Last Admin: 12/03/22 20:35 Dose: 1 mg Clonidine HCl (Clonidine Hcl 0.1 Mg Tablet) 0.1 mg PO TID PRN; Protocol PRN Reason: Anxiety Last Admin: 12/04/22 01:51 Dose: 0.1 mg Divalproex Sodium (Divalproex Sodium 250 Mg Tablet.) 250 mg PO BID [facility] Last Admin: 12/03/22 20:35 Dose: 250 mg Lactulose (Lactulose 20 Gm/30 Ml Solution) 15 gm PO BEDTIME JAKE Last Admin: 12/03/22 20:35 Dose: 15 gm Magnesium Hydroxide (Milk Of Magnesia 30 Ml Oral.Susp) 30 ml PO DAILY PRN PRN Reason: Constipation Nicotine Polacrilex (Nicotine Polacrilex Lozenge 4 Mg Lozenge) 4 mg BUCCAL Q2H PRN PRN Reason: Nicotine Cravings Last Admin: 12/02/22 14:02 Dose: 4 mg Thiamine HCl (Thiamine Hcl 100 Mg Tablet) 100 mg PO DAILY [facility] Last Admin: 12/03/22 10:16 Dose: 100 mg Allergies Allergies Allergy/AdvReac Type Severity Reaction Status Date / Time bupropion [From Wellbutrin] Allergy Unknown Verified 11/15/22 23:35 Assessment & Plan Assessment & Plan (1) Bipolar 1 disorder: Status: Acute Code(s): F31.9 - Bipolar disorder, unspecified Plan Patient is a 42 year old female with hx of bipolar d/o who self presented to [facility] ER after calling 911 and reporting she was in crisis . When arrived to ER, pt struggled to engage with staff and presented with mumbled speech. Collateral was obtained from and sister. Plan: CV 15 minute checks. Obtain collateral 11/17: Patient continues to have circumstantial thought content and paranoid delusions. Patient reports she want to live but knows if I have medications then I'll take them all . Patient reports she feels safe on the unit. Retracted 3 day. Will increase lithium and vraylar doses. Patient aware and is in agreement. 11/18: Dr. Obando and T/W met with patient and sister today. Pt continues with racing thoughts and circumstantial thought content. Denies suicidal ideation. [place] to be increased to 600mg PO BID; patient aware. CIWA D/C'd d/t scoring low and no withdrawal symptoms. supervisor machine workers to obtain records from [facility] with patients consent. 11/19: Patient reports difficulty sleeping. Continues with rapid speech, racing thoughts and circumstantial thought content. Signed 3 day last night, Patient reports she will retract on Tuesday if I don't feel better . Will add Seroquel at bedtime for sleep. seroquel added for insomnia monitor bp watch for s/e confusion with amlodipine lithium monitor creat watch for edema 11/20: No changes to current treatment regimen as Seroquel just added and patient declining any other changes 11/21: no changes- encourage current meds 11/22: Patient presents worsening in symptoms since Tuesday. Increased disorganization and paranoia; patient reports she has not slept. Ordered Ativan 2mg PO once, pt slept for 2.5 hours then woke up; Was then given Seroquel 50mg PO once; waiting on results. Patient retracted 3 day. Labs ordered, lithium level 0.83. Potassium 3.1; ordered hospitalist consult. UA pending. 11/23 pt appears delirious- if related to alcohol withdrawal, delirium tremens often seen> 96 hrs after last drink. Otherwise wondering if lithium. will hold lithium. give ativan 2mg and schedule ativan 2mg po qhs. d/c ambien. May need much higher doses if in DTs. 11/24: Patient continues disorganized, however presents with better insight. States she knows she is being delusional and not making sense . She was able to vocalize medications that have helped her in the past. D/C ativan; possibly making her confused. Started on risperdal d/t patient reporting she had never tried. Agreed to trial. Risks/benefits discussed. Starting Depakote to assist in decreasing dannielle. T/W spoke to sister (Constanza); gave her update on patient's treatment plan. Sister expressed gratitude towards staff/communication. 11/25: Patient reports feeling better than yesterday. Continues to present disorganized; singing at times. Is able to have a logical conversation at times. Was given a one time dose of Haldol 5mg PO; pt continues to report she is not sleeping at night. Waiting on collateral from [facility]. 11/26: Pt presents much approved today. Presents calm,with slower speech, not as accelerated. Pt stated, I feel better today; I slept . Continues to have disorganized thought process but is able to have logical conversations in- between the disorganization. Pt stated, my thoughts are very disorganized . Was able to attend meditation group. Continue with current tx plan. 11/27: more organized. still not sleeping. agreeable to increase VPA to 1000 mg daily and to reschedule all to HS. 11/28: slept about 3-4 hours last night. bizarrely repeatedly lowering herself to the floor in the past 24 H: i think i'm gonna fall. continue current mgmt for today. 11/29: slept 5 hours overnight, more fluid and spontaneous today, more organized. DC risperidone per pt request, start abilify. concern of weight gai n. continue VPA 1000 mg QHS. 11/30: Pt reports mood is a lot better ; reports sleeping well last night but continues to feel tired. Would like a therapist who can focus on her trauma. Continue current tx plan. 12/01: 1:1 discontinued, placed on 5 minute checks. Pt reports feeling better and not paranoid . Continues with tangential thought content. Continues to not sleep well at night. Increased ammonia level;Will give lactulose, hold Depakote and increase Abilify to 10mg PO daily. Patient notified. 12/02: Pt continues to report not sleeping well. Ammonia level today is 26. Patient notified. Lactulose will be decreased to once a day. Will restart Depakote 250mg PO BID and continue to monitor. Patient placed back on 15 minute safety checks. 12/03: Continues not sleeping well. Patient reports she does not feel as clear as yesterday . Tangential during 1:1. Patient focused on past trauma. Retracted 3 day. Started Klonopin 1mg PO bedtime. 12/04: Slept somewhat better per report. Consider increasing depakote but would need to recheck ammonia Reason for continued inpatient stay Substantial Risk for: inability to function Time Spent With Patient Time: Total time managing care of this patient today ____ minutes.
[2022-12-04 08:46] VITALS: BP 117/81; PULSE 87; RESP 18; TEMP 36.6; O2SAT 100
[2022-12-04] MEDS: amLODIPine Besylate 10 MG TABLET PO (08:47)
[2022-12-04] MEDS: Thiamine HCL 100 MG TABLET PO (08:47)
[2022-12-04] MEDS: ARIPiprazole 10 MG TABLET PO (08:47)
[2022-12-04] MEDS: Divalproex Sodium 250 MG TABLET.DR PO ×2 (08:47→21:02)
--- NOTE | 2022-12-04 09:17 | HO.PSYCHPN ---
Subjective Subjective Date of Service: 12/04/22 Reason For Visit: Bipolar Disorder Mental Status Exam Mental Status Exam Narrative: Preoocupied with getting her medical records from other facilities. Slept OK Patient Appearance: Well Grooomed Patient Orientation: Person, Place, Time and Situation Level of Consciousness: Alert Patient Behavior: Self Manipulative and Restless Mood Description: Anxious Affect Description: Apprehensive Patient Cognition Impaired: No Ability to Follow Directions: Good Speech Pattern: Clear and Pressured Memory Description: Intact Hallucinations: None Delusions: Not Present Thought Process: Distracted Thought Content: positive for Circumstantial Depressive Symptoms: Increased Anxiety Judgement: Fair Diagnostics Vital Signs (24Hr): Vital Signs - 24 hr 12/03/22 10:00 12/03/22 20:15 12/04/22 01:55 Temperature 97.4 F 97.6 F Pulse Rate 80 80 80 Respiratory Rate 16 16 16 Blood Pressure 112/78 98/64 107/77 Pulse Oximetry 97 99 Oxygen Delivery Method Room Air Room Air 12/04/22 08:46 Temperature 97.8 F Pulse Rate 87 Respiratory Rate 18 Blood Pressure 117/81 Pulse Oximetry 100 Oxygen Delivery Method Room Air BMI result Body Mass Index 22.0 Labs 11/23/22 13:00 Labs: Laboratory Results - last 48 hr 12/02/22 10:03 Ammonia 26 Medications Medications Current Medications Acetaminophen (Acetaminophen 325 Mg Tablet) 650 mg PO Q6H PRN PRN Reason: Headache/Pain Mild Scale (1-3) Last Admin: 12/01/22 08:42 Dose: 650 mg Al Hydroxide/Mg Hydroxide (Magnesium Hydrox/Alum Hydrox 30 Ml Oral.Susp) 30 ml PO Q6H PRN PRN Reason: Heartburn/Nausea Last Admin: 12/02/22 15:16 Dose: 30 ml Amlodipine Besylate (Amlodipine Besylate 10 Mg Tablet) 10 mg PO DAILY JAKE; Protocol Last Admin: 12/04/22 08:47 Dose: 10 mg Aripiprazole (Aripiprazole 10 Mg Tablet) 10 mg PO DAILY JAKE Last Admin: 12/04/22 08:47 Dose: 10 mg Clonazepam (Clonazepam 1 Mg Tablet) 1 mg PO BEDTIME JAKE Last Admin: 12/03/22 20:35 Dose: 1 mg Clonidine HCl (Clonidine Hcl 0.1 Mg Tablet) 0.1 mg PO TID PRN; Protocol PRN Reason: Anxiety Last Admin: 12/04/22 01:51 Dose: 0.1 mg Divalproex Sodium (Divalproex Sodium 250 Mg Danielle.) 250 mg PO BID [facility] Last Admin: 12/04/22 08:47 Dose: 250 mg Lactulose (Lactulose 20 Gm/30 Ml Solution) 15 gm PO BEDTIME [facility] Last Admin: 12/03/22 20:35 Dose: 15 gm Magnesium Hydroxide (Milk Of Magnesia 30 Ml Oral.Susp) 30 ml PO DAILY PRN PRN Reason: Constipation Nicotine Polacrilex (Nicotine Polacrilex Lozenge 4 Mg Lozenge) 4 mg BUCCAL Q2H PRN PRN Reason: Nicotine Cravings Last Admin: 12/02/22 14:02 Dose: 4 mg Thiamine HCl (Thiamine Hcl 100 Mg Tablet) 100 mg PO DAILY [facility] Last Admin: 12/04/22 08:47 Dose: 100 mg Allergies Allergies Allergy/AdvReac Type Severity Reaction Status Date / Time bupropion [From Wellbutrin] Allergy Unknown Verified 11/15/22 23:35 Assessment & Plan Assessment & Plan (1) Bipolar 1 disorder: Status: Acute Code(s): F31.9 - Bipolar disorder, unspecified Plan Patient is a 42 year old female with hx of bipolar d/o who self presented to [facility] ER after calling 911 and reporting she was in crisis . When arrived to ER, pt struggled to engage with staff and presented with mumbled speech. Collateral was obtained from and sister. Plan: CV 15 minute checks. Obtain collateral 11/17: Patient continues to have circumstantial thought content and paranoid delusions. Patient reports she want to live but knows if I have medications then I'll take them all . Patient reports she feels safe on the unit. Retracted 3 day. Will increase lithium and vraylar doses. Patient aware and is in agreement. 11/18: Dr. Obando and T/W met with patient and sister today. Pt continues with racing thoughts and circumstantial thought content. Denies suicidal ideation. [place] to be increased to 600mg PO BID; patient aware. SARAWA D/C'd d/t scoring low and no withdrawal symptoms. community health worker to obtain records from [facility] and [facility] with patients consent. 11/19: Patient reports difficulty sleeping. Continues with rapid speech, racing thoughts and circumstantial thought content. Signed 3 day last night, Patient reports she will retract on Tuesday if I don't feel better . Will add Seroquel at bedtime for sleep. seroquel added for insomnia monitor bp watch for s/e confusion with amlodipine lithium monitor creat watch for edema 11/20: No changes to current treatment regimen as Seroquel just added and patient declining any other changes 11/21: no changes- encourage current meds 11/22: Patient presents worsening in symptoms since Tuesday. Increased disorganization and paranoia; patient reports she has not slept. Ordered Ativan 2mg PO once, pt slept for 2.5 hours then woke up; Was then given Seroquel 50mg PO once; waiting on results. Patient retracted 3 day. Labs ordered, lithium level 0.83. Potassium 3.1; ordered hospitalist consult. UA pending. 11/23 pt appears delirious- if related to alcohol withdrawal, delirium tremens often seen> 96 hrs after last drink. Otherwise wondering if lithium. will hold lithium. give ativan 2mg and schedule ativan 2mg po qhs. d/c ambien. May need much higher doses if in DTs. 11/24: Patient continues disorganized, however presents with better insight. States she knows she is being delusional and not making sense . She was able to vocalize medications that have helped her in the past. D/C ativan; possibly making her confused. Started on risperdal d/t patient reporting she had never tried. Agreed to trial. Risks/benefits discussed. Starting Depakote to assist in decreasing dannielle. T/W spoke to sister (Constanza); gave her update on patient's treatment plan. Sister expressed gratitude towards staff/communication. 11/25: Patient reports feeling better than yesterday. Continues to present disorganized; singing at times. Is able to have a logical conversation at times. Was given a one time dose of Haldol 5mg PO; pt continues to report she is not sleeping at night. Waiting on collateral from [facility] and [facility]. 11/26: Pt presents much approved today. Presents calm,with slower speech, not as accelerated. Pt stated, I feel better today; I slept . Continues to have disorganized thought process but is able to have logical conversations in-between the disorganization. Pt stated, my thoughts are very disorganized . Was able to attend meditation group. Continue with current tx plan. 11/27: more organized. still not sleeping. agreeable to increase VPA to 1000 mg daily and to reschedule all to HS. 11/28: slept about 3-4 hours last night. bizarrely repeatedly lowering herself to the floor in the past 24 H: i think i'm gonna fall. continue current mgmt for today. 11/29: slept 5 hours overnight, more fluid and spontaneous today, more organized. DC risperidone per pt request, start abilify. concern of weight gain. continue VPA 1000 mg QHS. 11/30: Pt reports mood is a lot better ; reports sleeping well last night but continues to feel tired. Would like a therapist who can focus on her trauma. Continue current tx plan. 12/01: 1:1 discontinued, placed on 5 minute checks. Pt reports feeling better and not paranoid . Continues with tangential thought content. Continues to not sleep well at night. Increased ammonia level;Will give lactulose, hold Depakote and increase Abilify to 10mg PO daily. Patient notified. 12/02: Pt continues to report not sleeping well. Ammonia level today is 26. Patient notified. Lactulose will be decreased to once a day. Will restart Depakote 250mg PO BID and continue to monitor. Patient placed back on 15 minute safety checks. 12/03: Continues not sleeping well. Patient reports she does not feel as clear as yesterday . Tangential during 1:1. Patient focused on past trauma. Retracted 3 day. Started Klonopin 1mg PO bedtime. 12/04: Slept somewhat better per report. Consider increasing depakote but would need to recheck ammonia Reason for continued inpatient stay Substantial Risk for: inability to function Time Spent With Patient Time: Total time managing care of this patient today _20___ minutes.
[2022-12-04] MEDS: Nicotine Polacrilex Lozenge 4 MG LOZENGE BUCCAL ×3 (11:35→22:53)
[2022-12-04] MEDS: Acetaminophen 325 MG TABLET 650 MG PO (19:38)
[2022-12-04 20:58] VITALS: BP 122/74; PULSE 95; RESP 16; TEMP 36.6; O2SAT 97
[2022-12-04] MEDS: clonazePAM 1 MG TABLET PO (21:02)
[2022-12-04] MEDS: Lactulose 20 GM/30 ML SOLUTION 15 GM PO (21:03)
[2022-12-05] MEDS: cloNIDine HCL 0.1 MG TABLET PO ×2 (01:21→23:51)
[2022-12-05 01:22] VITALS: BP 120/79; PULSE 99; RESP 16; O2SAT 96
[2022-12-05] MEDS: traZODone HCL 100 MG TABLET PO (02:23)
--- NOTE | 2022-12-05 07:53 | P.PNPSI_ITS ---
Subjective Subjective Date of Service: 12/05/22 Reason For Visit: Bipolar Disorder Subjective Notes: Conditional Voluntary Medical Problems Affecting Mental Status: No Interim History: Asked for trazodone to be started again. Per nursing staff, appeared extremely restless after receiving this med and did not sleep well. Feels that she is having a break with reality by which she feels that her dreams are reality. Had stated that she feels gaslighted by staff. Medication Compliance: Yes Side effects from medications: Yes (possible akathisia) Attending Groups: Yes Review of Systems Acute medical concerns: No Medical Review of Systems: unchanged Mental Status Exam Mental Status Exam Patient Appearance: Well Grooomed Patient Orientation: Person, Place, Time (states the date is 11/26/22) and Situation Level of Consciousness: Alert Patient Behavior: Talkative Mood Description: Anxious Affect Description: Anxious Patient Cognition Impaired: No Ability to Follow Directions: Good Speech Pattern: Rambling and Rapid Memory Description: Working Impaired Hallucinations: None Delusions: Paranoid Ideation (concerns that a male patient is a younger version of my ) Thought Process: Distracted Thought Content: positive for Disorganized Depressive Symptoms: Increased Anxiety, Insomnia and Difficulty Concentrating Judgement: Fair Diagnostics Vital Signs (24Hr): Vital Signs - 24 hr 12/04/22 08:46 12/04/22 20:58 12/05/22 01:22 Temperature 97.8 F 97.9 F Pulse Rate 87 95 99 Respiratory Rate 18 16 16 Blood Pressure 117/81 122/74 120/79 Pulse Oximetry 100 97 96 Oxygen Delivery Method Room Air Room Air Room Air BMI result Body Mass Index 22.0 Labs 11/23/22 13:00 Medications Medications Current Medications Acetaminophen (Acetaminophen 325 Mg Tablet) 650 mg PO Q6H PRN PRN Reason: Headache/Pain Mild Scale (1-3) Last Admin: 12/04/22 19:38 Dose: 650 mg Al Hydroxide/Mg Hydroxide (Magnesium Hydrox/Alum Hydrox 30 Ml Oral.Susp) 30 ml PO Q6H PRN PRN Reason: Heartburn/Nausea Last Admin: 12/02/22 15:16 Dose: 30 ml Amlodipine Besylate (Amlodipine Besylate 10 Mg Tablet) 10 mg PO DAILY JAKE; Protocol Last Admin: 12/04/22 08:47 Dose: 10 mg Aripiprazole (Aripiprazole 10 Mg Tablet) 10 mg PO DAILY [facility] Last Admin: 12/04/22 08:47 Dose: 10 mg Clonazepam (Clonazepam 1 Mg Tablet) 1 mg PO BEDTIME JAKE Last Admin: 12/04/22 21:02 Dose: 1 mg Clonidine HCl (Clonidine Hcl 0.1 Mg Tablet) 0.1 mg PO TID PRN; Protocol PRN Reason: Anxiety Last Admin: 12/05/22 01:21 Dose: 0.1 mg Divalproex Sodium (Divalproex Sodium 250 Mg Tablet.) 250 mg PO BID [facility] Last Admin: 12/04/22 21:02 Dose: 250 mg Lactulose (Lactulose 20 Gm/30 Ml Solution) 15 gm PO BEDTIME JAKE Last Admin: 12/04/22 21:03 Dose: 15 gm Magnesium Hydroxide (Milk Of Magnesia 30 Ml Oral.Susp) 30 ml PO DAILY PRN PRN Reason: Constipation Nicotine Polacrilex (Nicotine Polacrilex Lozenge 4 Mg Lozenge) 4 mg BUCCAL Q2H PRN PRN Reason: Nicotine Cravings Last Admin: 12/04/22 22:53 Dose: 4 mg Thiamine HCl (Thiamine Hcl 100 Mg Tablet) 100 mg PO DAILY [facility] Last Admin: 12/04/22 08:47 Dose: 100 mg Trazodone HCl (Trazodone Hcl 100 Mg Tablet) 100 mg PO BEDTIME JAKE Last Admin: 12/05/22 02:23 Dose: 100 mg Allergies Allergies Allergy/AdvReac Type Severity Reaction Status Date / Time bupropion [From Wellbutrin] Allergy Unknown Verified 11/15/22 23:35 Assessment & Plan Assessment & Plan (1) Bipolar 1 disorder: Status: Acute Code(s): F31.9 - Bipolar disorder, unspecified Plan Patient is a 42 year old female with hx of bipolar d/o who self presented to [facility] ER after calling 911 and reporting she was in crisis . When arrived to ER, pt struggled to engage with staff and presented with mumbled speech. Collateral was obtained from and sister. Plan: CV 15 minute checks. Obtain collateral 11/17: Patient continues to have circumstantial thought content and paranoid delusions. Patient reports she want to live but knows if I have medications then I'll take them all . Patient reports she feels safe on the unit. Retracted 3 day. Will increase lithium and vraylar doses. Patient aware and is in agreement. 11/18: Dr. Obando and T/W met with patient and sister today. Pt continues with racing thoughts and circumstantial thought content. Denies suicidal ideation. [employer] to be increased to 600mg PO BID; patient aware. CIWA D/C'd d/t scoring low and no withdrawal symptoms. 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 11/19: Patient reports difficulty sleeping. Continues with rapid speech, racing thoughts and circumstantial thought content. Signed 3 day last night, Patient reports she will retract on Tuesday if I don't feel better . Will add Seroquel at bedtime for sleep. seroquel added for insomnia monitor bp watch for s/e confusion with amlodipine lithium monitor creat watch for edema 11/20: No changes to current treatment regimen as Seroquel just added and patient declining any other changes 11/21: no changes- encourage current meds 11/22: Patient presents worsening in symptoms since Tuesday. Increased dis organization and paranoia; patient reports she has not slept. Ordered Ativan 2mg PO once, pt slept for 2.5 hours then woke up; Was then given Seroquel 50mg PO once; waiting on results. Patient retracted 3 day. Labs ordered, lithium level 0.83. Potassium 3.1; ordered hospitalist consult. UA pending. 11/23 pt appears delirious- if related to alcohol withdrawal, delirium tremens often seen> 96 hrs after last drink. Otherwise wondering if lithium. will hold lithium. give ativan 2mg and schedule ativan 2mg po qhs. d/c ambien. May need much higher doses if in DTs. 11/24: Patient continues disorganized, however presents with better insight. States she knows she is being delusional and not making sense . She was able to vocalize medications that have helped her in the past. D/C ativan; possibly rick ng her confused. Started on risperdal d/t patient reporting she had never tried. Agreed to trial. Risks/benefits discussed. Starting Depakote to assist in decreasing dannielle. T/W spoke to sister (oCnstanza); gave her update on patient's treatment plan. Sister expressed gratitude towards staff/communication. 11/25: Patient reports feeling better than yesterday. Continues to present disorganized; singing at times. Is able to have a logical conversation at times. Was given a one time dose of Haldol 5mg PO; pt continues to report she is not sleeping at night. Waiting on collateral from [facility] and [facility]. 11/26: Pt presents much approved today. Presents calm,with slower speech, not as accelerated. Pt stated, I feel better today; I slept . Continues to have disorganized thought process but is able to have logical conversations in- between the disorganization. Pt stated, my thoughts are very disorganized . Was able to attend meditation group. Continue with current tx plan. 11/27: more organized. still not sleeping. agreeable to increase VPA to 1000 mg daily and to reschedule all to HS. 11/28: slept about 3-4 hours last night. bizarrely repeatedly lowering herself to the floor in the past 24 H: i think i'm gonna fall. continue current mgmt for today. 11/29: slept 5 hours overnight, more fluid and spontaneous today, more organized. DC risperidone per pt request, start abilify. concern of weight gain. continue VPA 1000 mg QHS. 11/30: Pt reports mood is a lot better ; reports sleeping well last night but continues to feel tired. Would like a therapist who can focus on her trauma. Renny jansen current tx plan. 12/01: 1:1 discontinued, placed on 5 minute checks. Pt reports feeling better and not paranoid . Continues with tangential thought content. Continues to not sleep well at night. Increased ammonia level;Will give lactulose, hold Depakote and increase Abilify to 10mg PO daily. Patient notified. 12/02: Pt continues to report not sleeping well. Ammonia level today is 26. Tricia ent notified. Lactulose will be decreased to once a day. Will restart Depakote 250mg PO BID and continue to monitor. Patient placed back on 15 minute safety checks. 12/03: Continues not sleeping well. Patient reports she does not feel as clear as yesterday . Tangential during 1:1. Patient focused on past trauma. Retracted 3 day. Started Klonopin 1mg PO bedtime. 12/04: Slept somewhat better per report. Consider increasing depakote but would need to recheck ammonia 12/05: recheck ammonia level. discontinue trazodone due to possible akathisia. Add MILTON fisher Reason for continued inpatient stay Substantial Risk for: inability to function Time Spent With Patient Time: Total time managing care of this patient today __25__ minutes.
[2022-12-05 09:19] VITALS: BP 124/77; PULSE 80; RESP 18; TEMP 35.8
[2022-12-05] MEDS: ARIPiprazole 10 MG TABLET PO (09:20)
[2022-12-05] MEDS: Divalproex Sodium 250 MG TABLET.DR PO ×2 (09:20→22:10)
[2022-12-05] MEDS: Thiamine HCL 100 MG TABLET PO (09:20)
[2022-12-05] MEDS: amLODIPine Besylate 10 MG TABLET PO (09:20)
[2022-12-05 18:11] VITALS: BP 133/82; PULSE 95; RESP 18; TEMP 36.6; O2SAT 100
--- NOTE | 2022-12-05 18:20 | PC.NURSE ---
Yisel had an unwitnessed fall, upon approach denied having any symptoms prior to fall, patient got up on her own per patient she was ambulating with meal tray, reports hospital gown got caught on door and she fell stated I'm good, when asked if she hit head stated No, I didn't I'm good. When asked if she had any pain stated No, I swear I'm good. Vital signs obtained, Dr. Moore notified.
[2022-12-05 22:00] VITALS: BP 120/82; PULSE 94; RESP 18; TEMP 36.8; O2SAT 98
[2022-12-05] MEDS: Lactulose 20 GM/30 ML SOLUTION 15 GM PO (22:09)
[2022-12-05] MEDS: clonazePAM 1 MG TABLET PO (22:10)
--- NOTE | 2022-12-06 03:37 | PC.NURSE ---
Yisel was pleasant and cooperative during the evening, she attended group and requested her medications to be given as late as you can because my circadian rhythm is all screwed up patient given medications around 2200 she appeared to rest until 2350 when she requested something to help her. clonidine given with minimal effect. patient has been restless, pressured rapid speech and accusatory. she signed then retracted a 3-day notice in the evening. and is now requesting a 3-day notice but that she [doesn't] want to sign it until Tuesday, I want to be discharged on Tuesday, No offence I just feel like someone else could benefit from being here more then me
[2022-12-06] MEDS: clonazePAM 1 MG TABLET PO ×2 (03:56→20:41)
[2022-12-06 08:33] VITALS: BP 127/84; PULSE 88; RESP 18; TEMP 36.1; O2SAT 99
[2022-12-06] MEDS: amLODIPine Besylate 10 MG TABLET PO (08:34)
[2022-12-06] MEDS: Divalproex Sodium 250 MG TABLET.DR PO ×2 (08:34→20:41)
[2022-12-06] MEDS: Thiamine HCL 100 MG TABLET PO (08:34)
[2022-12-06] MEDS: ARIPiprazole 10 MG TABLET PO (08:34)
--- NOTE | 2022-12-06 11:43 | HO.PSYCHPN ---
Subjective Subjective Date of Service: 12/06/22 Reason For Visit: Bipolar Disorder Subjective Notes: Conditional Voluntary Healthcare Proxy: No Guardianship: No Medical Problems Affecting Mental Status: Yes (RECENT ELEVATED AMMONIA) Interim History: The patient was seen in psychiatric follow-up. The patient needs extensive reassurance regarding diagnosis and how this may guide treatment but do not take in the diagnosis as who she is as a person. Gives history of 1 or 2 prior manic episode at this appears to been triggered by ECT for depression. Patient where she had an elevated ammonia and that we rechallenged with lower dose continues to have racing thoughts lability intrusiveness intense anxiety at periods Medication Compliance: Intermittent Side effects from medications: Yes Attending Groups: Intermittent Mental Status Exam Mental Status Exam Patient Appearance: Well Grooomed Patient Orientation: Person, Place and Situation Level of Consciousness: Alert Patient Behavior: Talkative, Restless and Distractible Mood Description: Anxious and Apprehensive Affect Description: Suspicious and Anxious Patient Cognition Impaired: No Ability to Follow Directions: Good Speech Pattern: Rambling and Rapid Memory Description: Working Impaired Hallucinations: None Delusions: Paranoid Ideation (concerns that a male patient is a younger version of my ) Thought Process: Distracted Thought Content: positive for Disorganized Depressive Symptoms: Increased Anxiety, Insomnia and Difficulty Concentrating Judgement: Fair Diagnostics Vital Signs (24Hr): Vital Signs - 24 hr 12/05/22 18:11 12/05/22 22:00 12/06/22 08:33 Temperature 97.9 F 98.3 F 97.0 F Pulse Rate 95 94 88 Respiratory Rate 18 18 18 Blood Pressure 133/82 120/82 127/84 Pulse Oximetry 100 98 99 Oxygen Delivery Method Room Air Room Air BMI result Body Mass Index 22.0 Labs 11/23/22 13:00 Medications Medications Current Medications Acetaminophen (Acetaminophen 325 Mg Tablet) 650 mg PO Q6H PRN PRN Reason: Headache/Pain Mild Scale (1-3) Last Admin: 12/04/22 19:38 Dose: 650 mg Al Hydroxide/Mg Hydroxide (Magnesium Hydrox/Alum Hydrox 30 Ml Oral.Susp) 30 ml PO Q6H PRN PRN Reason: Heartburn/Nausea Last Admin: 12/02/22 15:16 Dose: 30 ml Amlodipine Besylate (Amlodipine Besylate 10 Mg Tablet) 10 mg PO DAILY JAKE; Protocol Last Admin: 12/06/22 08:34 Dose: 10 mg Aripiprazole (Aripiprazole 10 Mg Tablet) 10 mg PO DAILY [facility] Last Admin: 12/06/22 08:34 Dose: 10 mg Clonazepam (Clonazepam 1 Mg Tablet) 1 mg PO BEDTIME JAKE Last Admin: 12/05/22 22:10 Dose: 1 mg Clonazepam (Clonazepam 1 Mg Tablet) 1 mg PO BEDTIME PRN PRN Reason: Insomnia Last Admin: 12/06/22 03:56 Dose: 1 mg Clonidine HCl (Clonidine Hcl 0.1 Mg Tablet) 0.1 mg PO TID PRN; Protocol PRN Reason: Anxiety Last Admin: 12/05/22 23:51 Dose: 0.1 mg Divalproex Sodium (Divalproex Sodium 250 Mg Tablet.Dr) 250 mg PO BID [facility] Last Admin: 12/06/22 08:34 Dose: 250 mg Lactulose (Lactulose 20 Gm/30 Ml Solution) 15 gm PO BEDTIME [facility] Last Admin: 12/05/22 22:09 Dose: 15 gm Magnesium Hydroxide (Milk Of Magnesia 30 Ml Oral.Susp) 30 ml PO DAILY PRN PRN Reason: Constipation Nicotine Polacrilex (Nicotine Polacrilex Lozenge 4 Mg Lozenge) 4 mg BUCCAL Q2H PRN PRN Reason: Nicotine Cravings Last Admin: 12/04/22 22:53 Dose: 4 mg Thiamine HCl (Thiamine Hcl 100 Mg Tablet) 100 mg PO DAILY [facility] Last Admin: 12/06/22 08:34 Dose: 100 mg Allergies Allergies Allergy/AdvReac Type Severity Reaction Status Date / Time bupropion [From Wellbutrin] Allergy Unknown Verified 11/15/22 23:35 Assessment & Plan Assessment & Plan (1) Severe manic bipolar 1 disorder with psychotic behavior: Status: Acute Code(s): F31.2 - Bipolar disorder, current episode manic severe with psychotic features (2) History of alcohol use disorder: Status: Acute Code(s): Z87.898 - Personal history of other specified conditions Plan Patient is a 42 year old female with hx of bipolar d/o who self presented to [facility] ER after calling 911 and reporting she was in crisis . When arrived to ER, pt struggled to engage with staff and presented with mumbled speech. Collateral was obtained from and sister. Plan: CV 15 minute checks. Obtain collateral 11/17: Patient continues to have circumstantial thought content and paranoid delusions. Patient reports she want to live but knows if I have medications then I'll take them all . Patient reports she feels safe on the unit. Retracted 3 day. Will increase lithium and vraylar doses. Patient aware and is in agreement. 11/18: Dr. Obando and T/W met with patient and sister today. Pt continues with racing thoughts and circumstantial thought content. Denies suicidal ideation. [place] to be increased to 600mg PO BID; patient aware. CIWA D/C'd d/t scoring low and no withdrawal symptoms. 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 11/19: Patient reports difficulty sleeping. Continues with rapid speech, racing thoughts and circumstantial thought content. Signed 3 day last night, Patient reports she will retract on Tuesday if I don't feel better . Will add Seroquel at bedtime for sleep. seroquel added for insomnia monitor bp watch for s/e confusion with amlodipine lithium monitor creat watch for edema 11/20: No changes to current treatment regimen as Seroquel just added and patient declining any other changes 11/21: no changes- encourage current meds 11/22: Patient presents worsening in symptoms since Tuesday. Increased disorganization and paranoia; patient reports she has not slept. Ordered Ativan 2mg PO once, pt slept for 2.5 hours then woke up; Was then given Seroquel 50mg PO once; waiting on results. Patient retracted 3 day. Labs ordered, lithium level 0.83. Potassium 3.1; ordered hospitalist consult. UA pending. 11/23 pt appears delirious- if related to alcohol withdrawal, delirium tremens often seen> 96 hrs after last drink. Otherwise wondering if lithium. will hold lithium. give ativan 2mg and schedule ativan 2mg po qhs. d/c ambien. May need much higher doses if in DTs. 11/24: Patient continues disorganized, however presents with better insight. States she knows she is being delusional and not making sense . She was able to vocalize medications that have helped her in the past. D/C ativan; possibly making her confused. Started on risperdal d/t patient reporting she had never tried. Agreed to trial. Risks/benefits discussed. Starting Depakote to assist in decreasing dannielle. T/W spoke to sister (Constanza); gave her update on patient's treatment plan. Sister expressed gratitude towards staff/communication. 11/25: Patient reports feeling better than yesterday. Continues to present disorganized; singing at times. Is able to have a logical conversation at times. Was given a one time dose of Haldol 5mg PO; pt continues to report she is not sleeping at night. Waiting on collateral from [facility] and [facility]. 11/26: Pt presents much approved today. Presents calm,with slower speech, not as accelerated. Pt stated, I feel better today; I slept . Continues to have disorganized thought process but is able to have logical conversations in-between the disorganization. Pt stated, my thoughts are very disorganized . Was able to attend meditation group. Continue with current tx plan. 11/27: more organized. still not sleeping. agreeable to increase VPA to 1000 mg daily and to reschedule all to HS. 11/28: slept about 3-4 hours last night. bizarrely repeatedly lowering herself to the floor in the past 24 H: i think i'm gonna fall. continue current mgmt for today. 11/29: slept 5 hours overnight, more fluid and spontaneous today, more organized. DC risperidone per pt request, start abilify. concern of weight gain. continue VPA 1000 mg QHS. 11/30: Pt reports mood is a lot better ; reports sleeping well last night but continues to feel tired. Would like a therapist who can focus on her trauma. Continue current tx plan. 12/01: 1:1 discontinued, placed on 5 minute checks. Pt reports feeling better and not paranoid . Continues with tangential thought content. Continues to not sleep well at night. Increased ammonia level;Will give lactulose, hold Depakote and increase Abilify to 10mg PO daily. Patient notified. 12/02: Pt continues to report not sleeping well. Ammonia level today is 26. Patient notified. Lactulose will be decreased to once a day. Will restart Depakote 250mg PO BID and continue to monitor. Patient placed back on 15 minute safety checks. 12/03: Continues not sleeping well. Patient reports she does not feel as clear as yesterday . Tangential during 1:1. Patient focused on past trauma. Retracted 3 day. Started Klonopin 1mg PO bedtime. 12/04: Slept somewhat better per report. Consider increasing depakote but would need to recheck ammonia 12/05: recheck ammonia level. discontinue trazodone due to possible akathisia. Add PRN klonopin 12/06/2022 Patient in one-to-one was less labile more organized remains quite disorganized in the milieu. Ammonia level now within normal limits on lactulose recheck ammonia in morning gradually increase Depakote as tolerated to therapeutic levels may need increase in Abilify for manic doses has significant insomnia trazodone discontinued Patient educated on: diagnosis and medication risk/benefits Informed Consent: further education needed Reason for continued inpatient stay Substantial Risk for: inability to function and rapid decompensation Time Spent With Patient Time: Total time managing care of this patient today 30____ minutes.
[2022-12-06] MEDS: Nicotine Polacrilex Lozenge 4 MG LOZENGE BUCCAL (13:57)
[2022-12-06 20:00] VITALS: BP 112/77; PULSE 93; RESP 18; TEMP 36.3; O2SAT 100
[2022-12-07 00:19] VITALS: BP 115/82; PULSE 92; RESP 20
[2022-12-07] MEDS: cloNIDine HCL 0.1 MG TABLET PO ×3 (00:19→23:24)
[2022-12-07 02:35] VITALS: BP 106/74; PULSE 83; RESP 20
[2022-12-07] MEDS: amLODIPine Besylate 10 MG TABLET PO (08:23)
[2022-12-07] MEDS: Divalproex Sodium 250 MG TABLET.DR PO ×2 (08:23→21:30)
[2022-12-07] MEDS: ARIPiprazole 10 MG TABLET PO (08:23)
[2022-12-07] MEDS: Thiamine HCL 100 MG TABLET PO (08:23)
[2022-12-07 08:26] VITALS: BP 130/89; PULSE 78; RESP 16; TEMP 36.6; O2SAT 98
[2022-12-07 08:51] LABS: Ammonia 29 umol/L (13-55)
[2022-12-07 09:09] LABS: Alanine Aminotransferase 24 U/L (0-31); Albumin Level 3.9 g/dL (3.5-5.0); Alkaline Phosphatase 44 U/L (39-117); Aspartate Amino Transferase 20 U/L (5-31); Bilirubin Direct 0.1 mg/dL (0.0-0.5); Bilirubin Total 0.4 mg/dL (0.0-1.0); Total Protein 5.9 g/dL (6.5-8.0)
[2022-12-07 09:16] LABS: Valproate 43.3 mcg/mL (50.0-100.0)
[2022-12-07] MEDS: Nicotine Polacrilex Lozenge 4 MG LOZENGE BUCCAL (14:28)
[2022-12-07] MEDS: OLANZapine 2.5 MG TABLET PO (15:20)
[2022-12-07 20:54] VITALS: BP 101/67; PULSE 83; RESP 18; TEMP 36.6; O2SAT 100
[2022-12-07] MEDS: QUEtiapine Fumarate 25 MG TABLET 75 MG PO (21:30)
[2022-12-07] MEDS: Lactulose 20 GM/30 ML SOLUTION 15 GM PO (21:31)
[2022-12-07] MEDS: clonazePAM 1 MG TABLET PO (21:31)
--- NOTE | 2022-12-07 22:42 | HO.PSYCHPN ---
Subjective Subjective Date of Service: 12/07/22 Reason For Visit: Bipolar Disorder Subjective Notes: Conditional Voluntary Interim History: Patient disorganized with racing thoughts periods of severe paranoia and psychosis not sleeping Medication Compliance: Intermittent Side effects from medications: Yes Mental Status Exam Mental Status Exam Patient Appearance: Well Grooomed Patient Orientation: Person, Place and Situation Level of Consciousness: Alert Patient Behavior: Talkative, Suspicious, Restless and Distractible Mood Description: Anxious, Labile and Apprehensive Affect Description: Suspicious, Anxious and Apprehensive Patient Cognition Impaired: No Ability to Follow Directions: Good Speech Pattern: Rambling and Rapid Memory Description: Working Impaired Delusions: Paranoid Ideation (concerns that a male patient is a younger version of my ) Perceptual Disturbances: Depersonalization and Derealization Thought Process: Distracted Thought Content: positive for Disorganized Depressive Symptoms: Increased Anxiety, Insomnia and Difficulty Concentrating Judgement: Fair Diagnostics Vital Signs (24Hr): Vital Signs - 24 hr 12/07/22 00:19 12/07/22 02:35 12/07/22 08:26 Temperature 97.9 F Pulse Rate 92 83 78 Respiratory Rate 20 20 16 Blood Pressure 115/82 106/74 130/89 Pulse Oximetry 98 Oxygen Delivery Method Room Air 12/07/22 20:54 Temperature 97.9 F Pulse Rate 83 Respiratory Rate 18 Blood Pressure 101/67 Pulse Oximetry 100 Oxygen Delivery Method Room Air BMI result Body Mass Index 22.0 Labs 11/23/22 13:00 Labs: Laboratory Results - last 48 hr 12/07/22 12/07/22 12/07/22 08:18 08:18 08:19 Total Bilirubin 0.4 Direct Bilirubin 0.1 AST 20 ALT 24 Alkaline Phosphatase 44 Ammonia 29 Total Protein 5.9 L Albumin 3.9 Valproic Acid 43.3 L Medications Medications Current Medications Acetaminophen (Acetaminophen 325 Mg Tablet) 650 mg PO Q6H PRN PRN Reason: Headache/Pain Mild Scale (1-3) Last Admin: 12/04/22 19:38 Dose: 650 mg Al Hydroxide/Mg Hydroxide (Magnesium Hydrox/Alum Hydrox 30 Ml Oral.Susp) 30 ml PO Q6H PRN PRN Reason: Heartburn/Nausea Last Admin: 12/02/22 15:16 Dose: 30 ml Amlodipine Besylate (Amlodipine Besylate 10 Mg Tablet) 10 mg PO DAILY JAKE; Protocol Last Admin: 12/07/22 08:23 Dose: 10 mg Aripiprazole (Aripiprazole 15 Mg Tablet) 15 mg PO DAILY JAKE Clonazepam (Clonazepam 1 Mg Tablet) 1 mg PO BEDTIME JAKE Last Admin: 12/07/22 21:31 Dose: 1 mg Clonazepam (Clonazepam 1 Mg Tablet) 1 mg PO BEDTIME PRN PRN Reason: Insomnia Last Admin: 12/06/22 03:56 Dose: 1 mg Clonidine HCl (Clonidine Hcl 0.1 Mg Tablet) 0.1 mg PO TID PRN; Protocol PRN Reason: Anxiety Last Admin: 12/07/22 15:20 Dose: 0.1 mg Clonidine HCl (Clonidine Hcl 0.1 Mg Tablet) 0.1 mg PO BEDTIME JAKE; Protocol Divalproex Sodium (Divalproex Sodium 250 Mg Tablet.Dr) 250 mg PO TID JAKE Lactulose (Lactulose 20 Gm/30 Ml Solution) 15 gm PO BEDTIME JAKE Last Admin: 12/07/22 21:31 Dose: 15 gm Magnesium Hydroxide (Milk Of Magnesia 30 Ml Oral.Susp) 30 ml PO DAILY PRN PRN Reason: Constipation Nicotine Polacrilex (Nicotine Polacrilex Lozenge 4 Mg Lozenge) 4 mg BUCCAL Q2H PRN PRN Reason: Nicotine Cravings Last Admin: 12/07/22 14:28 Dose: 4 mg Olanzapine (Olanzapine 5 Mg Tablet) 5 mg PO Q4H PRN PRN Reason: Psychosis Quetiapine Fumarate (Quetiapine Fumarate 25 Mg Tablet) 75 mg PO BEDTIME JAKE Last Admin: 12/07/22 21:30 Dose: 75 mg Thiamine HCl (Thiamine Hcl 100 Mg Tablet) 100 mg PO DAILY JAKE Last Admin: 12/07/22 08:23 Dose: 100 mg Allergies Allergies Allergy/AdvReac Type Severity Reaction Status Date / Time bupropion [From Wellbutrin] Allergy Unknown Verified 11/15/22 23:35 Assessment & Plan Assessment & Plan (1) Severe manic bipolar 1 disorder with psychotic behavior: Status: Acute Code(s): F31.2 - Bipolar disorder, current episode manic severe with psychotic features (2) History of alcohol use disorder: Status: Acute Code(s): Z87.898 - Personal history of other specified conditions Plan Patient is a 42 year old female with hx of bipolar d/o who self presented to [facility] ER after calling 911 and reporting she was in crisis . When arrived to ER, pt struggled to engage with staff and presented with mumbled speech. Collateral was obtained from and sister. Plan: CV 15 minute checks. Obtain collateral 11/17: Patient continues to have circumstantial thought content and paranoid delusions. Patient reports she want to live but knows if I have medications then I'll take them all . Patient reports she feels safe on the unit. Retracted 3 day. Will increase lithium and vraylar doses. Patient aware and is in agreement. 11/18: Dr. Obando and T/W met with patient and sister today. Pt continues with racing thoughts and circumstantial thought content. Denies suicidal ideation. [place] to be increased to 600mg PO BID; patient aware. CIWA D/C'd d/t scoring low and no withdrawal symptoms. 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 11/19: Patient reports difficulty sleeping. Continues with rapid speech, racing thoughts and circumstantial thought content. Signed 3 day last night, Patient reports she will retract on Tuesday if I don't feel better . Will add Seroquel at bedtime for sleep. seroquel added for insomnia monitor bp watch for s/e confusion with amlodipine lithium monitor creat watch for edema 11/20: No changes to current treatment regimen as Seroquel just added and patient declining any other changes 11/21: no changes- encourage current meds 11/22: Patient presents worsening in symptoms since Tuesday. Increased disorganization and paranoia; patient reports she has not slept. Ordered Ativan 2mg PO once, pt slept for 2.5 hours then woke up; Was then given Seroquel 50mg PO once; waiting on results. Patient retracted 3 day. Labs ordered, lithium level 0.83. Potassium 3.1; ordered hospitalist consult. UA pending. 11/23 pt appears delirious- if related to alcohol withdrawal, delirium tremens often seen> 96 hrs after last drink. Otherwise wondering if lithium. will hold lithium. give ativan 2mg and schedule ativan 2mg po qhs. d/c ambien. May need much higher doses if in DTs. 11/24: Patient continues disorganized, however presents with better insight. States she knows she is being delusional and not making sense . She was able to vocalize medications that have helped her in the past. D/C ativan; possibly making her confused. Started on risperdal d/t patient reporting she had never tried. Agreed to trial. Risks/benefits discussed. Starting Depakote to assist in decreasing dannielle. T/W spoke to sister (Constanza); gave her update on patient's treatment plan. Sister expressed gratitude towards staff/communication. 11/25: Patient reports feeling better than yesterday. Continues to present disorganized; singing at times. Is able to have a logical conversation at times. Was given a one time dose of Haldol 5mg PO; pt continues to report she is not sleeping at night. Waiting on collateral from [facility] and [facility]. 11/26: Pt presents much approved today. Presents calm,with slower speech, not as accelerated. Pt stated, I feel better today; I slept . Continues to have disorganized thought process but is able to have logical conversations in-between the disorganization. Pt stated, my thoughts are very disorganized . Was able to attend meditation group. Continue with current tx plan. 11/27: more organized. still not sleeping. agreeable to increase VPA to 1000 mg daily and to reschedule all to HS. 11/28: slept about 3-4 hours last night. bizarrely repeatedly lowering herself to the floor in the past 24 H: i think i'm gonna fall. continue current mgmt for today. 11/29: slept 5 hours overnight, more fluid and spontaneous today, more organized. DC risperidone per pt request, start abilify. concern of weight gain. continue VPA 1000 mg QHS. 11/30: Pt reports mood is a lot better ; reports sleeping well last night but continues to feel tired. Would like a therapist who can focus on her trauma. Continue current tx plan. 12/01: 1:1 discontinued, placed on 5 minute checks. Pt reports feeling better and not paranoid . Continues with tangential thought content. Continues to not sleep well at night. Increased ammonia level;Will give lactulose, hold Depakote and increase Abilify to 10mg PO daily. Patient notified. 12/02: Pt continues to report not sleeping well. Ammonia level today is 26. Patient notified. Lactulose will be decreased to once a day. Will restart Depakote 250mg PO BID and continue to monitor. Patient placed back on 15 minute safety checks. 12/03: Continues not sleeping well. Patient reports she does not feel as clear as yesterday . Tangential during 1:1. Patient focused on past trauma. Retracted 3 day. Started Klonopin 1mg PO bedtime. 12/04: Slept somewhat better per report. Consider increasing depakote but would need to recheck ammonia 12/05: recheck ammonia level. discontinue trazodone due to possible akathisia. Add PRN klonopin 12/06/2022 Patient in one-to-one was less labile more organized remains quite disorganized in the milieu. Ammonia level now within normal limits on lactulose recheck ammonia in morning gradually increase Depakote as tolerated to therapeutic levels may need increase in Abilify for manic doses has significant insomnia trazodone discontinued 12/07/2022 Patient with variable periods of intense lability pressured speech disorganization and at times paranoia and fearfulness. Seeing meaning in different things feelings of derealization depersonalization fear in paranoia. Increase Depakote olanzapine p.r.n. history of past stabilizations on olanzapine and Depakote but did gain a significant amount of weight Patient educated on: diagnosis and medication risk/benefits Informed Consent: further education needed Reason for continued inpatient stay Substantial Risk for: harm to self, inability to function and rapid decompensation Time Spent With Patient Time: Total time managing care of this patient today __35__ minutes.
[2022-12-07 23:20] VITALS: BP 121/81; PULSE 83; RESP 18; O2SAT 96
[2022-12-08] MEDS: clonazePAM 1 MG TABLET PO ×2 (02:16→21:54)
[2022-12-08] MEDS: OLANZapine 5 MG TABLET PO (03:39)
[2022-12-08 08:19] VITALS: BP 115/84; PULSE 95; RESP 18; TEMP 36.6; O2SAT 96
[2022-12-08] MEDS: Thiamine HCL 100 MG TABLET PO (08:20)
[2022-12-08] MEDS: ARIPiprazole 15 MG TABLET PO (08:20)
[2022-12-08] MEDS: Divalproex Sodium 250 MG TABLET.DR PO ×3 (08:20→21:54)
[2022-12-08] MEDS: cloNIDine HCL 0.1 MG TABLET PO ×2 (12:05→17:14)
--- NOTE | 2022-12-08 13:23 | PC.NURSE ---
Patient refused now dose of Zyprexa. Reports she does not want to have slurred speech when her comes at 2pm. Reports her disorganization is due to her untreated ADHD. Dr. Obando notified.
[2022-12-08 21:30] VITALS: BP 99/74; PULSE 80; RESP 18; TEMP 36.6; O2SAT 98
[2022-12-08] MEDS: QUEtiapine Fumarate 100 MG TABLET PO (21:55)
[2022-12-08] MEDS: Lactulose 20 GM/30 ML SOLUTION 15 GM PO (21:56)
--- NOTE | 2022-12-08 23:48 | P.PNPSI_ITS ---
Subjective Subjective Date of Service: 12/08/22 Reason For Visit: Bipolar Disorder Subjective Notes: Conditional Voluntary Interim History: PTwith marked mood instability anxiety periods of significant paranoia intrusive behavior insight variable at times logical goal directed at of times disorganized racing paranoid Mental Status Exam Mental Status Exam Patient Appearance: Well Grooomed Patient Orientation: Person, Place and Situation Level of Consciousness: Alert Patient Behavior: Talkative, Suspicious, Restless and Distractible Mood Description: Anxious, Labile and Apprehensive Affect Description: Suspicious, Anxious and Apprehensive Patient Cognition Impaired: No Ability to Follow Directions: Good Speech Pattern: Rambling and Rapid Memory Description: Working Impaired Delusions: Paranoid Ideation (concerns that a male patient is a younger version of my ) Perceptual Disturbances: Depersonalization and Derealization Thought Process: Distracted Thought Content: positive for Disorganized Depressive Symptoms: Increased Anxiety, Insomnia and Difficulty Concentrating Judgement: Fair Diagnostics Vital Signs (24Hr): Vital Signs - 24 hr 12/08/22 08:19 12/08/22 21:30 Temperature 97.8 F 97.8 F Pulse Rate 95 80 Respiratory Rate 18 18 Blood Pressure 115/84 99/74 Pulse Oximetry 96 98 Oxygen Delivery Method Room Air Room Air BMI result Body Mass Index 22.0 Labs 11/23/22 13:00 Labs: Laboratory Results - last 48 hr 12/07/22 12/07/22 12/07/22 08:18 08:18 08:19 Total Bilirubin 0.4 Direct Bilirubin 0.1 AST 20 ALT 24 Alkaline Phosphatase 44 Ammonia 29 Total Protein 5.9 L Albumin 3.9 Valproic Acid 43.3 L Medications Medications Current Medications Acetaminophen (Acetaminophen 325 Mg Tablet) 650 mg PO Q6H PRN PRN Reason: Headache/Pain Mild Scale (1-3) Last Admin: 12/04/22 19:38 Dose: 650 mg Al Hydroxide/Mg Hydroxide (Magnesium Hydrox/Alum Hydrox 30 Ml Oral.Susp) 30 ml PO Q6H PRN PRN Reason: Heartburn/Nausea Last Admin: 12/02/22 15:16 Dose: 30 ml Amlodipine Besylate (Amlodipine Besylate 10 Mg Tablet) 10 mg PO DAILY JAKE; Protocol Last Admin: 12/08/22 08:24 Dose: Not Given Aripiprazole (Aripiprazole 15 Mg Tablet) 15 mg PO DAILY JAKE Last Admin: 12/08/22 08:20 Dose: 15 mg Clonazepam (Clonazepam 1 Mg Tablet) 1 mg PO BEDTIME JAKE Last Admin: 12/08/22 21:54 Dose: 1 mg Clonazepam (Clonazepam 1 Mg Tablet) 1 mg PO BEDTIME PRN PRN Reason: Insomnia Last Admin: 12/08/22 02:16 Dose: 1 mg Clonidine HCl (Clonidine Hcl 0.1 Mg Tablet) 0.1 mg PO TID PRN; Protocol PRN Reason: Anxiety Last Admin: 12/08/22 17:14 Dose: 0.1 mg Clonidine HCl (Clonidine Hcl 0.1 Mg Tablet) 0.1 mg PO BEDTIME JAKE; Protocol Last Admin: 12/08/22 22:02 Dose: Not Given Divalproex Sodium (Divalproex Sodium 250 Mg Tablet.Dr) 250 mg PO TID JAKE Last Admin: 12/08/22 21:54 Dose: 250 mg Lactulose (Lactulose 20 Gm/30 Ml Solution) 15 gm PO BEDTIME JAKE Last Admin: 12/08/22 21:56 Dose: 15 gm Magnesium Hydroxide (Milk Of Magnesia 30 Ml Oral.Susp) 30 ml PO DAILY PRN PRN Reason: Constipation Nicotine Polacrilex (Nicotine Polacrilex Lozenge 4 Mg Lozenge) 4 mg BUCCAL Q2H PRN PRN Reason: Nicotine Cravings Last Admin: 12/07/22 14:28 Dose: 4 mg Olanzapine (Olanzapine 5 Mg Tablet) 5 mg PO Q4H PRN PRN Reason: Psychosis Last Admin: 12/08/22 03:39 Dose: 5 mg Quetiapine Fumarate (Quetiapine Fumarate 100 Mg Tablet) 100 mg PO BEDTIME JAKE Last Admin: 12/08/22 21:55 Dose: 100 mg Thiamine HCl (Thiamine Hcl 100 Mg Tablet) 100 mg PO DAILY JAKE Last Admin: 12/08/22 08:20 Dose: 100 mg Allergies Allergies Allergy/AdvReac Type Severity Reaction Status Date / Time bupropion [From Wellbutrin] Allergy Unknown Verified 11/15/22 23:35 Assessment & Plan Assessment & Plan (1) Severe manic bipolar 1 disorder with psychotic behavior: Status: Acute Code(s): F31.2 - Bipolar disorder, current episode manic severe with psychotic features (2) History of alcohol use disorder: Status: Acute Code(s): Z87.898 - Personal history of other specified conditions Plan Patient is a 42 year old female with hx of bipolar d/o who self presented to [facility] ER after calling 911 and reporting she was in crisis . When arrived to ER, pt struggled to engage with staff and presented with mumbled speech. Collateral was obtained from and sister. Plan: CV 15 minute checks. Obtain collateral 11/17: Patient continues to have circumstantial thought content and paranoid delusions. Patient reports she want to live but knows if I have medications then I'll take them all . Patient reports she feels safe on the unit. Retracted 3 day. Will increase lithium and vraylar doses. Patient aware and is in agreement. 11/18: Dr. Obando and T/W met with patient and sister today. Pt continues with racing thoughts and circumstantial thought content. Denies suicidal ideation. [place] to be increased to 600mg PO BID; patient aware. CIWA D/C'd d/t scoring low and no withdrawal symptoms. 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 11/19: Patient reports difficulty sleeping. Continues with rapid speech, racing thoughts and circumstantial thought content. Signed 3 day last night, Patient reports she will retract on Tuesday if I don't feel better . Will add Seroquel at bedtime for sleep. seroquel added for insomnia monitor bp watch for s/e confusion with amlodipine lithium monitor creat watch for edema 11/20: No changes to current treatment regimen as Seroquel just added and patient declining any other changes 11/21: no changes- encourage current meds 11/22: Patient presents worsening in symptoms since Tuesday. Increased disorganization and paranoia; patient reports she has not slept. Ordered Ativan 2mg PO once, pt slept for 2.5 hours then woke up; Was then given Seroquel 50mg PO once; waiting on results. Patient retracted 3 day. Labs ordered, lithium level 0.83. Potassium 3.1; ordered hospitalist consult. UA pending. 11/23 pt appears delirious- if related to alcohol withdrawal, delirium tremens often seen> 96 hrs after last drink. Otherwise wondering if lithium. will hold lithium. give ativan 2mg and schedule ativan 2mg po qhs. d/c ambien. May need much higher doses if in DTs. 7/5: Patient continues disorganized, however presents with better insight. States she knows she is being delusional and not making sense . She was able to vocalize medications that have helped her in the past. D/C ativan; possibly making her confused. Started on risperdal d/t patient reporting she had never tried. Agreed to trial. Risks/benefits discussed. Starting Depakote to assist in decreasing dannielle. T/W spoke to sister (Constanza); gave her update on patient's treatment plan. Sister expressed gratitude towards staff/communication. 11/25: Patient reports feeling better than yesterday. Continues to present disorganized; singing at times. Is able to have a logical conversation at times. Was given a one time dose of Haldol 5mg PO; pt continues to report she is not sleeping at night. Waiting on collateral from [facility] and [facility]. 11/26: Pt presents much approved today. Presents calm,with slower speech, not as accelerated. Pt stated, I feel better today; I slept . Continues to have disorganized thought process but is able to have logical conversations in- between the disorganization. Pt stated, my thoughts are very disorganized . Was able to attend meditation group. Continue with current tx plan. 11/27: more organized. still not sleeping. agreeable to increase VPA to 1000 mg daily and to reschedule all to HS. 11/28: slept about 3-4 hours last night. bizarrely repeatedly lowering herself to the floor in the past 24 H: i think i'm gonna fall. continue current mgmt for today. 11/29: slept 5 hours overnight, more fluid and spontaneous today, more organized. DC risperidone per pt request, start abilify. concern of weight g ain. continue VPA 1000 mg QHS. 11/30: Pt reports mood is a lot better ; reports sleeping well last night but continues to feel tired. Would like a therapist who can focus on her trauma. Continue current tx plan. 12/01: 1:1 discontinued, placed on 5 minute checks. Pt reports feeling better and not paranoid . Continues with tangential thought content. Continues to not sleep well at night. Increased ammonia level;Will give lactulose, hold Depakote and increase Abilify to 10mg PO daily. Patient notified. 12/02: Pt continues to report not sleeping well. Ammonia level today is 26. Patient notified. Lactulose will be decreased to once a day. Will restart Depakote 250mg PO BID and continue to monitor. Patient placed back on 15 minute safety checks. 12/03: Continues not sleeping well. Patient reports she does not feel as clear as yesterday . Tangential during 1:1. Patient focused on past trauma. Retracted 3 day. Started Klonopin 1mg PO bedtime. 12/04: Slept somewhat better per report. Consider increasing depakote but would need to recheck ammonia 12/05: recheck ammonia level. discontinue trazodone due to possible akathisia. Add PRN klonopin 12/06/2022 Patient in one-to-one was less labile more organized remains quite disorganized in the milieu. Ammonia level now within normal limits on lactulose recheck ammonia in morning gradually increase Depakote as tolerated to therapeutic leve ls may need increase in Abilify for manic doses has significant insomnia trazodone discontinued 12/07/2022 Patient with variable periods of intense lability pressured speech disorganization and at times paranoia and fearfulness. Seeing meaning in different things feelings of derealization depersonalization fear in paranoia. Increase Depakote olanzapine p.r.n. history of past stabilizations on olanzapine and Depakote but did gain a significant amount of weight 12/08/2022 Abilify 15 mg daily Seroquel 100 at bedtime increase Depakote check level and ammonia level in the morning encourage treatment compliance needs much reassurance and education Patient educated on: diagnosis and medication risk/benefits Informed Consent: further education needed Reason for continued inpatient stay Substantial Risk for: harm to self, inability to function and rapid decompensation Time Spent With Patient Time: Total time managing care of this patient today __30__ minutes.
[2022-12-09] MEDS: cloNIDine HCL 0.1 MG TABLET PO ×3 (00:39→21:24)
[2022-12-09] MEDS: OLANZapine 5 MG TABLET PO ×3 (00:39→21:23)
[2022-12-09 00:46] VITALS: BP 116/90; PULSE 89; RESP 18
[2022-12-09] MEDS: clonazePAM 1 MG TABLET PO ×2 (03:25→21:24)
[2022-12-09 07:00] VITALS: BMI 21.9
[2022-12-09 08:54] LABS: MANUAL DIFF FLAG NO
[2022-12-09] MEDS: Divalproex Sodium 250 MG TABLET.DR PO ×2 (09:15→15:32)
[2022-12-09] MEDS: Thiamine HCL 100 MG TABLET PO (09:15)
[2022-12-09] MEDS: ARIPiprazole 15 MG TABLET PO (09:15)
[2022-12-09] MEDS: amLODIPine Besylate 10 MG TABLET PO (09:17)
[2022-12-09 09:25] LABS: Basophils Percent Auto 0.4 % (0-2); Eosinophils Absolute Auto 0.1 X10*3/uL (0.0-0.4); Eosinophils Percent Auto 1.3 % (0-4); Hematocrit 38.6 % (37.0-47.0); Hemoglobin 12.3 g/dl (12.0-16.0); Imm Gran Abs Auto 0.01 X10*3/uL (0.00-0.03); Imm Gran Pct Auto 0.2 % (0.0-0.4); Lymphocytes Absolute Auto 2.1 X10*3/uL (1.2-4.9); Lymphocytes Percent Auto 45.7 % (20-40); Mean Corpuscular HGB Conc 31.9 g/dl (31.0-35.0); Mean Corpuscular Hemoglobin 29.7 pg (27.0-33.0); Mean Corpuscular Volume 93.2 fL (80.0-98.0); Mean Platelet Volume 9.6 fL (9.4-12.3); Monocytes Absolute Auto 0.5 X10*3/uL (0.1-1.2); Monocytes Percent Auto 10.2 % (2-11); Neutrophils Absolute Auto 1.9 x10*3/uL (2.0-8.3); Neutrophils Percent Auto 42.2 % (45-73); Platelet Count 255 X10*3/uL (160-400); Red Blood Count 4.14 X10*6/uL (4.20-5.50); Red Cell Distribution Width 13.2 % (11.0-16.0); White Blood Count 4.5 X10*3/uL (4.8-10.8)
[2022-12-09 10:41] VITALS: BP 121/82; PULSE 84; RESP 18; TEMP 36.6; O2SAT 100
[2022-12-09 10:49] LABS: Ammonia 24 umol/L (13-55)
[2022-12-09 21:48] VITALS: BP 119/81; PULSE 96; TEMP 36.6; O2SAT 100
--- NOTE | 2022-12-09 23:13 | HO.PSYCHPN ---
Subjective Subjective Date of Service: 12/09/22 Reason For Visit: Bipolar Disorder Subjective Notes: Goldstein Warning, Conditional Voluntary and 3 Day Interim History: Patient racing thoughts periods of agitation mood labile needs frequent redirection to understand that she is suffering from a bipolar episode versus ADD seems to have a somewhat decrease in psychotic preoccupations was able to discuss history of olanzapine Patient aware we are gradually increasing Depakote Medication Compliance: Intermittent Attending Groups: Yes Mental Status Exam Mental Status Exam Patient Appearance: Well Grooomed Patient Orientation: Person, Place and Situation Level of Consciousness: Alert Patient Behavior: Talkative, Suspicious, Restless and Distractible Mood Description: Anxious, Labile and Apprehensive Affect Description: Suspicious, Anxious and Apprehensive Patient Cognition Impaired: No Ability to Follow Directions: Good Speech Pattern: Rambling and Rapid Memory Description: Working Impaired Delusions: Paranoid Ideation (concerns that a male patient is a younger version of my ) Perceptual Disturbances: Depersonalization and Derealization Thought Process: Distracted Thought Content: positive for Disorganized Depressive Symptoms: Increased Anxiety, Insomnia and Difficulty Concentrating Judgement: Fair Diagnostics Vital Signs (24Hr): Vital Signs - 24 hr 12/09/22 00:46 12/09/22 10:41 12/09/22 21:48 Temperature 97.8 F 97.8 F Pulse Rate 89 84 96 Respiratory Rate 18 18 Blood Pressure 116/90 H 121/82 119/81 Pulse Oximetry 100 100 Oxygen Delivery Method Room Air Room Air BMI result Body Mass Index 21.9 Labs 12/09/22 08:41 11/23/22 13:00 Labs: Laboratory Results - last 48 hr 12/09/22 12/09/22 12/09/22 08:41 08:41 08:41 WBC 4.5 L RBC 4.14 L Hgb 12.3 Hct 38.6 MCV 93.2 MCH 29.7 MCHC 31.9 RDW 13.2 Plt Count 255 MPV 9.6 Immature Gran % (Auto) 0.2 Neut % (Auto) 42.2 L Lymph % (Auto) 45.7 H [place] % (Auto) 10.2 Eos % (Auto) 1.3 Baso % (Auto) 0.4 Lymph # (Auto) 2.1 [place] # (Auto) 0.5 Eos # (Auto) 0.1 Baso # (Auto) 0.0 Abs Immat Gran (auto) 0.01 Absolute Neuts (auto) 1.9 L Absolute Nucleated RBC 0.000 Nucleated RBC % (auto) 0.0 Ammonia 24 Valproic Acid 38.0 L Medications Medications Current Medications Acetaminophen (Acetaminophen 325 Mg Tablet) 650 mg PO Q6H PRN PRN Reason: Headache/Pain Mild Scale (1-3) Last Admin: 12/04/22 19:38 Dose: 650 mg Al Hydroxide/Mg Hydroxide (Magnesium Hydrox/Alum Hydrox 30 Ml Oral.Susp) 30 ml PO Q6H PRN PRN Reason: Heartburn/Nausea Last Admin: 12/02/22 15:16 Dose: 30 ml Amlodipine Besylate (Amlodipine Besylate 10 Mg Tablet) 10 mg PO DAILY JAKE; Protocol Last Admin: 12/09/22 09:17 Dose: 10 mg Aripiprazole (Aripiprazole 15 Mg Tablet) 15 mg PO DAILY JAKE Last Admin: 12/09/22 09:15 Dose: 15 mg Clonazepam (Clonazepam 1 Mg Tablet) 1 mg PO BEDTIME JAKE Last Admin: 12/09/22 21:24 Dose: 1 mg Clonazepam (Clonazepam 1 Mg Tablet) 1 mg PO BEDTIME PRN PRN Reason: Insomnia Last Admin: 12/09/22 03:25 Dose: 1 mg Clonidine HCl (Clonidine Hcl 0.1 Mg Tablet) 0.1 mg PO TID PRN; Protocol PRN Reason: Anxiety Last Admin: 12/09/22 09:59 Dose: 0.1 mg Clonidine HCl (Clonidine Hcl 0.1 Mg Tablet) 0.1 mg PO BEDTIME JAKE; Protocol Last Admin: 12/09/22 21:24 Dose: 0.1 mg Divalproex Sodium (Divalproex Sodium 500 Mg Tablet.Dr) 500 mg PO BEDTIME JAKE Last Admin: 12/09/22 21:27 Dose: Not Given Divalproex Sodium (Divalproex Sodium 250 Mg Tablet.Dr) 250 mg PO BID@0830,1430 JAKE Lactulose (Lactulose 20 Gm/30 Ml Solution) 15 gm PO BEDTIME JAKE Last Admin: 12/09/22 21:28 Dose: Not Given Magnesium Hydroxide (Milk Of Magnesia 30 Ml Oral.Susp) 30 ml PO DAILY PRN PRN Reason: Constipation Nicotine Polacrilex (Nicotine Polacrilex Lozenge 4 Mg Lozenge) 4 mg BUCCAL Q2H PRN PRN Reason: Nicotine Cravings Last Admin: 12/07/22 14:28 Dose: 4 mg Olanzapine (Olanzapine 5 Mg Tablet) 5 mg PO Q4H PRN PRN Reason: Psychosis Last Admin: 12/09/22 21:23 Dose: 5 mg Olanzapine (Olanzapine Odt 10 Mg Tab.Rapdis) 10 mg TRANSLINGU BEDTIME JAKE Last Admin: 12/09/22 21:28 Dose: Not Given Thiamine HCl (Thiamine Hcl 100 Mg Tablet) 100 mg PO DAILY JAKE Last Admin: 12/09/22 09:15 Dose: 100 mg Allergies Allergies Allergy/AdvReac Type Severity Reaction Status Date / Time bupropion [From Wellbutrin] Allergy Unknown Verified 11/15/22 23:35 Assessment & Plan Assessment & Plan (1) Severe manic bipolar 1 disorder with psychotic behavior: Status: Acute Code(s): F31.2 - Bipolar disorder, current episode manic severe with psychotic features (2) History of alcohol use disorder: Status: Acute Code(s): Z87.898 - Personal history of other specified conditions Plan Patient is a 42 year old female with hx of bipolar d/o who self presented to [facility] ER after calling 911 and reporting she was in crisis . When arrived to ER, pt struggled to engage with staff and presented with mumbled speech. Collateral was obtained from and sister. Plan: CV 15 minute checks. Obtain collateral 11/17: Patient continues to have circumstantial thought content and paranoid delusions. Patient reports she want to live but knows if I have medications then I'll take them all . Patient reports she feels safe on the unit. Retracted 3 day. Will increase lithium and vraylar doses. Patient aware and is in agreement. 11/18: Dr. Obando and T/W met with patient and sister today. Pt continues with racing thoughts and circumstantial thought content. Denies suicidal ideation. [place] to be increased to 600mg PO BID; patient aware. SARAWA D/C'd d/t scoring low and no withdrawal symptoms. 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 11/19: Patient reports difficulty sleeping. Continues with rapid speech, racing thoughts and circumstantial thought content. Signed 3 day last night, Patient reports she will retract on Tuesday if I don't feel better . Will add Seroquel at bedtime for sleep. seroquel added for insomnia monitor bp watch for s/e confusion with amlodipine lithium monitor creat watch for edema 11/20: No changes to current treatment regimen as Seroquel just added and patient declining any other changes 11/21: no changes- encourage current meds 11/22: Patient presents worsening in symptoms since Tuesday. Increased disorganization and paranoia; patient reports she has not slept. Ordered Ativan 2mg PO once, pt slept for 2.5 hours then woke up; Was then given Seroquel 50mg PO once; waiting on results. Patient retracted 3 day. Labs ordered, lithium level 0.83. Potassium 3.1; ordered hospitalist consult. UA pending. 11/23 pt appears delirious- if related to alcohol withdrawal, delirium tremens often seen> 96 hrs after last drink. Otherwise wondering if lithium. will hold lithium. give ativan 2mg and schedule ativan 2mg po qhs. d/c ambien. May need much higher doses if in DTs. 11/24: Patient continues disorganized, however presents with better insight. States she knows she is being delusional and not making sense . She was able to vocalize medications that have helped her in the past. D/C ativan; possibly making her confused. Started on risperdal d/t patient reporting she had never tried. Agreed to trial. Risks/benefits discussed. Starting Depakote to assist in decreasing dannilele. T/W spoke to sister (Constanza); gave her update on patient's treatment plan. Sister expressed gratitude towards staff/communication. 11/25: Patient reports feeling better than yesterday. Continues to present disorganized; singing at times. Is able to have a logical conversation at times. Was given a one time dose of Haldol 5mg PO; pt continues to report she is not sleeping at night. Waiting on collateral from [facility]. 11/26: Pt presents much approved today. Presents calm,with slower speech, not as accelerated. Pt stated, I feel better today; I slept . Continues to have disorganized thought process but is able to have logical conversations in-between the disorganization. Pt stated, my thoughts are very disorganized . Was able to attend meditation group. Continue with current tx plan. 11/27: more organized. still not sleeping. agreeable to increase VPA to 1000 mg daily and to reschedule all to HS. 11/28: slept about 3-4 hours last night. bizarrely repeatedly lowering herself to the floor in the past 24 H: i think i'm gonna fall. continue current mgmt for today. 11/29: slept 5 hours overnight, more fluid and spontaneous today, more organized. DC risperidone per pt request, start abilify. concern of weight gain. continue VPA 1000 mg QHS. 11/30: Pt reports mood is a lot better ; reports sleeping well last night but continues to feel tired. Would like a therapist who can focus on her trauma. Continue current tx plan. 12/01: 1:1 discontinued, placed on 5 minute checks. Pt reports feeling better and not paranoid . Continues with tangential thought content. Continues to not sleep well at night. Increased ammonia level;Will give lactulose, hold Depakote and increase Abilify to 10mg PO daily. Patient notified. 12/02: Pt continues to report not sleeping well. Ammonia level today is 26. Patient notified. Lactulose will be decreased to once a day. Will restart Depakote 250mg PO BID and continue to monitor. Patient placed back on 15 minute safety checks. 12/03: Continues not sleeping well. Patient reports she does not feel as clear as yesterday . Tangential during 1:1. Patient focused on past trauma. Retracted 3 day. Started Klonopin 1mg PO bedtime. 12/04: Slept somewhat better per report. Consider increasing depakote but would need to recheck ammonia 12/05: recheck ammonia level. discontinue trazodone due to possible akathisia. Add PRN klonopin 12/06/2022 Patient in one-to-one was less labile more organized remains quite disorganized in the milieu. Ammonia level now within normal limits on lactulose recheck ammonia in morning gradually increase Depakote as tolerated to therapeutic levels may need increase in Abilify for manic doses has significant insomnia trazodone discontinued 12/07/2022 Patient with variable periods of intense lability pressured speech disorganization and at times paranoia and fearfulness. Seeing meaning in different things feelings of derealization depersonalization fear in paranoia. Increase Depakote olanzapine p.r.n. history of past stabilizations on olanzapine and Depakote but did gain a significant amount of weight 12/08/2022 Abilify 15 mg daily Seroquel 100 at bedtime increase Depakote check level and ammonia level in the morning encourage treatment compliance needs much reassurance and education 12/09/2022 Increase Depakote to 1000 mg a day check ammonia level in the morning patient does have a history of being on Depakote and lithium with reported relatively good affect history of 1 prior manic psychotic episode greater than 15 years ago spoke with patient agreed to change Seroquel to olanzapine at bedtime hopefully will help retrain sleep continue Abilify 15 mg for now Reason for continued inpatient stay Substantial Risk for: harm to self, inability to function and rapid decompensation Time Spent With Patient Time: Total time managing care of this patient today ____ minutes.
[2022-12-10] MEDS: OLANZapine 5 MG TABLET PO (01:10)
[2022-12-10] MEDS: clonazePAM 1 MG TABLET PO ×2 (02:02→20:34)
[2022-12-10] MEDS: Thiamine HCL 100 MG TABLET PO (08:25)
[2022-12-10] MEDS: Divalproex Sodium 250 MG TABLET.DR PO ×2 (08:25→14:15)
[2022-12-10] MEDS: ARIPiprazole 15 MG TABLET PO (08:26)
[2022-12-10 09:23] LABS: Ammonia 24 umol/L (13-55)
[2022-12-10 10:50] VITALS: BP 121/80; PULSE 80; RESP 18; TEMP 36.2; O2SAT 100
--- NOTE | 2022-12-10 12:18 | P.PNPSI_ITS ---
Subjective Subjective Date of Service: 12/10/22 Reason For Visit: Bipolar Disorder Subjective Notes: Conditional Voluntary Interim History: Patient has on going significant rapid cycling periods of cognitive clarity ongoing racing thoughts thought disorganization and periods of paranoia and fear in which she loses touch with the reality has derealization depersonalization and believes she may be intentionally or being played with in her head at times a bizarre delusions such as her outside therapist has had a sex change and is stalking her inpatient continues to have a difficult time focusing on the difference between ADHD which the patient has an symptoms of dannielle and treatment for bipolar dannielle given attention the patient is able to maintain a therapeutic [place] she did refuse Depakote last night she does understand that she had 1 elevated ammonia for reasons that are not totally clear she was on Depakote and intermittently lithium in the past. She may have had a 1 manic episode something like this in the past but never severe. She is also bring up the possibility of restarting ECT which appear to have triggered this manic episode Medication Compliance: Intermittent Side effects from medications: Yes Attending Groups: Intermittent Review of Systems Recent elevated ammonia and confusion Medical Review of Systems: unchanged Review of Systems: History of spastic bladder Mental Status Exam Mental Status Exam Patient Appearance: Well Grooomed Patient Orientation: Person, Place and Situation Level of Consciousness: Alert Patient Behavior: Talkative, Suspicious, Restless and Distractible Mood Description: Anxious, Labile and Apprehensive Affect Description: Suspicious, Anxious, Labile and Apprehensive Patient Cognition Impaired: No Ability to Follow Directions: Good Speech Pattern: Perseverating, Rambling, Rapid, Excessive and Pressured Memory Description: Working Impaired Hallucinations: None Delusions: Paranoid Ideation Thought Process: Racing and Distracted Diagnostics Vital Signs (24Hr): Vital Signs - 24 hr 12/09/22 21:48 12/10/22 10:50 Temperature 97.8 F 97.1 F Pulse Rate 96 80 Respiratory Rate 18 Blood Pressure 119/81 121/80 Pulse Oximetry 100 100 Oxygen Delivery Method Room Air Room Air BMI result Body Mass Index 21.9 Labs 12/09/22 08:41 11/23/22 13:00 Labs: Laboratory Results - last 48 hr 12/09/22 12/09/22 12/09/22 08:41 08:41 08:41 WBC 4.5 L RBC 4.14 L Hgb 12.3 Hct 38.6 MCV 93.2 MCH 29.7 MCHC 31.9 RDW 13.2 Plt Count 255 MPV 9.6 Immature Gran % (Auto) 0.2 Neut % (Auto) 42.2 L Lymph % (Auto) 45.7 H [place]on % (Auto) 10.2 Eos % (Auto) 1.3 Baso % (Auto) 0.4 Lymph # (Auto) 2.1 Weston # (Auto) 0.5 Eos # (Auto) 0.1 Baso # (Auto) 0.0 Abs Immat Gran (auto) 0.01 Absolute Neuts (auto) 1.9 L Absolute Nucleated RBC 0.000 Nucleated RBC % (auto) 0.0 Ammonia 24 Valproic Acid 38.0 L 12/10/22 08:36 WBC RBC Hgb Hct MCV MCH MCHC RDW Plt Count MPV Immature Gran % (Auto) Neut % (Auto) Lymph % (Auto) Weston % (Auto) Eos % (Auto) Baso % (Auto) Lymph # (Auto) [place]on # (Auto) Eos # (Auto) Baso # (Auto) Abs Immat Gran (auto) Absolute Neuts (auto) Absolute Nucleated RBC Nucleated RBC % (auto) Ammonia 24 Valproic Acid Medications Medications Current Medications Acetaminophen (Acetaminophen 325 Mg Tablet) 650 mg PO Q6H PRN PRN Reason: Headache/Pain Mild Scale (1-3) Last Admin: 12/04/22 19:38 Dose: 650 mg Al Hydroxide/Mg Hydroxide (Magnesium Hydrox/Alum Hydrox 30 Ml Oral.Susp) 30 ml PO Q6H PRN PRN Reason: Heartburn/Nausea Last Admin: 12/02/22 15:16 Dose: 30 ml Amlodipine Besylate (Amlodipine Besylate 10 Mg Tablet) 10 mg PO DAILY JAKE; Protocol Last Admin: 12/10/22 08:28 Dose: Not Given Aripiprazole (Aripiprazole 15 Mg Tablet) 15 mg PO DAILY JAKE Last Admin: 12/10/22 08:26 Dose: 15 mg Clonazepam (Clonazepam 1 Mg Tablet) 1 mg PO BEDTIME JAKE Last Admin: 12/09/22 21:24 Dose: 1 mg Clonazepam (Clonazepam 1 Mg Tablet) 1 mg PO BEDTIME PRN PRN Reason: Insomnia Last Admin: 12/10/22 02:02 Dose: 1 mg Clonidine HCl (Clonidine Hcl 0.1 Mg Tablet) 0.1 mg PO TID PRN; Protocol PRN Reason: Anxiety Last Admin: 12/09/22 09:59 Dose: 0.1 mg Clonidine HCl (Clonidine Hcl 0.1 Mg Tablet) 0.1 mg PO BEDTIME JAKE; Protocol Last Admin: 12/09/22 21:24 Dose: 0.1 mg Divalproex Sodium (Divalproex Sodium 500 Mg Tablet.) 500 mg PO BEDTIME JAKE Last Admin: 12/09/22 21:27 Dose: Not Given Divalproex Sodium (Divalproex Sodium 250 Mg Tablet.Dr) 250 mg PO BID@0830,1430 JAKE Last Admin: 12/10/22 08:25 Dose: 250 mg Lactulose (Lactulose 20 Gm/30 Ml Solution) 15 gm PO BEDTIME JAKE Last Admin: 12/09/22 21:28 Dose: Not Given Magnesium Hydroxide (Milk Of Magnesia 30 Ml Oral.Susp) 30 ml PO DAILY PRN PRN Reason: Constipation Nicotine Polacrilex (Nicotine Polacrilex Lozenge 4 Mg Lozenge) 4 mg BUCCAL Q2H PRN PRN Reason: Nicotine Cravings Last Admin: 12/07/22 14:28 Dose: 4 mg Olanzapine (Olanzapine 5 Mg Tablet) 5 mg PO Q4H PRN PRN Reason: Psychosis Last Admin: 12/10/22 01:10 Dose: 5 mg Olanzapine (Olanzapine Odt 10 Mg Tab.Rapdis) 10 mg TRANSLINGU BEDTIME JAKE Last Admin: 12/09/22 21:28 Dose: Not Given Thiamine HCl (Thiamine Hcl 100 Mg Tablet) 100 mg PO DAILY COUNT INCLUDES THE [facility] Last Admin: 12/10/22 08:25 Dose: 100 mg Allergies Allergies Allergy/AdvReac Type Severity Reaction Status Date / Time bupropion [From Wellbutrin] Allergy Unknown Verified 11/15/22 23:35 Assessment & Plan Assessment & Plan (1) Severe manic bipolar 1 disorder with psychotic behavior: Status: Acute Code(s): F31.2 - Bipolar disorder, current episode manic severe with psychotic features (2) History of alcohol use disorder: Status: Acute Code(s): Z87.898 - Personal history of other specified conditions Plan Patient is a 42 year old female with hx of bipolar d/o who self presented to [facility] ER after calling 911 and reporting she was in crisis . When arrived to ER, pt struggled to engage with staff and presented with mumbled speech. Collateral was obtained from and sister. Plan: CV 15 minute checks. Obtain collateral 11/17: Patient continues to have circumstantial thought content and paranoid delusions. Patient reports she want to live but knows if I have medications then I'll take them all . Patient reports she feels safe on the unit. Retracted 3 day. Will increase lithium and vraylar doses. Patient aware and is in agreement. 11/18: Dr. Obando and T/W met with patient and sister today. Pt continues with racing thoughts and circumstantial thought content. Denies suicidal ideation. Posey to be increased to 600mg PO BID; patient aware. CIWA D/C'd d/t scoring low and no withdrawal symptoms. 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 11/19: Patient reports difficulty sleeping. Continues with rapid speech, racing thoughts and circumstantial thought content. Signed 3 day last night, Patient reports she will retract on Tuesday if I don't feel better . Will add Seroquel at bedtime for sleep. seroquel added for insomnia monitor bp watch for s/e confusion with amlodipine lithium monitor creat watch for edema 11/20: No changes to current treatment regimen as Seroquel just added and patient declining any other changes 11/21: no changes- encourage current meds 11/22: Patient presents worsening in symptoms since Tuesday. Increased disorganization and paranoia; patient reports she has not slept. Ordered Ativan 2mg PO once, pt slept for 2.5 hours then woke up; Was then given Seroquel 50mg PO once; waiting on results. Patient retracted 3 day. Labs ordered, lithium level 0.83. Potassium 3.1; ordered hospitalist consult. UA pending. 11/23 pt appears delirious- if related to alcohol withdrawal, delirium tremens often seen> 96 hrs after last drink. Otherwise wondering if lithium. will hold lithium. give ativan 2mg and schedule ativan 2mg po qhs. d/c ambien. May need much higher doses if in DTs. 11/24: Patient continues disorganized, however presents with better insight. States she knows she is being delusional and not making sense . She was able to vocalize medications that have helped her in the past. D/C ativan; possibly making her confused. Started on risperdal d/t patient reporting she had never tried. Agreed to trial. Risks/benefits discussed. Starting Depakote to assist in decreasing dannielle. T/W spoke to sister (Constanza); gave her update on patient's treatment plan. Sister expressed gratitude towards staff/communication. 11/25: Patient reports feeling better than yesterday. Continues to present disorganized; singing at times. Is able to have a logical conversation at times. Was given a one time dose of Haldol 5mg PO; pt continues to report she is not sleeping at night. Waiting on collateral from [facility] and [facility]. 11/26: Pt presents much approved today. Presents calm,with slower speech, not as accelerated. Pt stated, I feel better today; I slept . Continues to have disorganized thought process but is able to have logical conversations in- between the disorganization. Pt stated, my thoughts are very disorganized . Was able to attend meditation group. Continue with current tx plan. 11/27: more organized. still not sleeping. agreeable to increase VPA to 1000 mg daily and to reschedule all to HS. 11/28: slept about 3-4 hours last night. bizarrely repeatedly lowering herself to the floor in the past 24 H: i think i'm gonna fall. continue current mgmt for today. 11/29: slept 5 hours overnight, more fluid and spontaneous today, more organized. DC risperidone per pt request, start abilify. concern of weight ga in. continue VPA 1000 mg QHS. 11/30: Pt reports mood is a lot better ; reports sleeping well last night but continues to feel tired. Would like a therapist who can focus on her trauma. Continue current tx plan. 12/01: 1:1 discontinued, placed on 5 minute checks. Pt reports feeling better and not paranoid . Continues with tangential thought content. Continues to not sleep well at night. Increased ammonia level;Will give lactulose, hold Depakote and increase Abilify to 10mg PO daily. Patient notified. 12/02: Pt continues to report not sleeping well. Ammonia level today is 26. Patient notified. Lactulose will be decreased to once a day. Will restart Depakote 250mg PO BID and continue to monitor. Patient placed back on 15 minute safety checks. 12/03: Continues not sleeping well. Patient reports she does not feel as clear as yesterday . Tangential during 1:1. Patient focused on past trauma. Retracted 3 day. Started Klonopin 1mg PO bedtime. 12/04: Slept somewhat better per report. Consider increasing depakote but would need to recheck ammonia 12/05: recheck ammonia level. discontinue trazodone due to possible akathisia. Add PRN klonopin 12/06/2022 Patient in one-to-one was less labile more organized remains quite disorganized in the milieu. Ammonia level now within normal limits on lactulose recheck ammonia in morning gradually increase Depakote as tolerated to therapeutic level s may need increase in Abilify for manic doses has significant insomnia trazodone discontinued 12/07/2022 Patient with variable periods of intense lability pressured speech disorganization and at times paranoia and fearfulness. Seeing meaning in different things feelings of derealization depersonalization fear in paranoia. Increase Depakote olanzapine p.r.n. history of past stabilizations on olanzapine and Depakote but did gain a significant amount of weight 12/08/2022 Abilify 15 mg daily Seroquel 100 at bedtime increase Depakote check level and ammonia level in the morning encourage treatment compliance needs much reassurance and education 12/09/2022 Increase Depakote to 1000 mg a day check ammonia level in the morning patient does have a history of being on Depakote and lithium with reported relatively good affect history of 1 prior manic psychotic episode greater than 15 years ago spoke with patient agreed to change Seroquel to olanzapine at bedtime hopefully will help retrain sleep continue Abilify 15 mg for now 12/10/2022 Patient agrees to taper Depakote as prescribed monitor level and ammonia level olanzapine added which she has been on previously will continue with Abilify at present does not wish to continue Depakote and olanzapine ongoing as an outpatient because of past weight gain but agrees to take it presently to try and get a better handle on her psychotic manic episode. Continue to try and maintain therapeutic [place] spoke with who is quite understanding and supportive Consideration could be given to ECT which would most likely treat the patient's manic psychotic agitation consider restart lithium Patient educated on: diagnosis, medication risk/benefits, therapeutic strategies and medical condition Informed Consent: further education needed Reason for continued inpatient stay Substantial Risk for: inability to function and rapid decompensation Time Spent With Patient Time: Total time managing care of this patient today _40___ minutes.
[2022-12-10] MEDS: Nicotine Polacrilex Lozenge 4 MG LOZENGE BUCCAL (14:49)
[2022-12-10] MEDS: Lactulose 20 GM/30 ML SOLUTION 15 GM PO (20:32)
[2022-12-10] MEDS: cloNIDine HCL 0.1 MG TABLET PO (20:34)
[2022-12-10] MEDS: Divalproex Sodium 500 MG TABLET.DR PO (20:34)
[2022-12-10] MEDS: OLANZapine ODT 10 MG TAB.RAPDIS TRANSLINGU (20:35)
[2022-12-10 21:49] VITALS: BP 132/88; PULSE 73; RESP 18; TEMP 36.7; O2SAT 99
[2022-12-11] MEDS: OLANZapine 5 MG TABLET PO ×2 (01:50→22:48)
[2022-12-11] MEDS: clonazePAM 1 MG TABLET PO ×2 (02:45→20:11)
[2022-12-11 08:10] VITALS: BP 127/93; PULSE 88; RESP 16; TEMP 36.6; O2SAT 98
[2022-12-11] MEDS: Thiamine HCL 100 MG TABLET PO (08:38)
[2022-12-11] MEDS: Divalproex Sodium 250 MG TABLET.DR PO ×2 (08:38→14:58)
[2022-12-11] MEDS: ARIPiprazole 15 MG TABLET PO (08:38)
[2022-12-11] MEDS: cloNIDine HCL 0.1 MG TABLET PO ×2 (08:49→20:11)
[2022-12-11] MEDS: Magnesium Hydrox/Alum Hydrox 30 ML ORAL.SUSP PO (09:43)
--- NOTE | 2022-12-11 14:41 | HO.PSYCHPN ---
Subjective Subjective Date of Service: 12/11/22 Reason For Visit: Bipolar Disorder Interim History: Patient continues to show affect lability and racing thoughts. Needs frequent redirection to understand that she is suffering from a bipolar episode versus ADD. Thoughts are non-linear and distracted. Perseverating on ADHD diagnosis. Reports ECT caused her dannielle and that is why she doesn't have actual bipolar disorder. She reports some improvement with her medications and reports she slept. seems to have a somewhat decrease in psychotic preoccupations. Tolerating increased Depakote Denies SI. Review of Systems Review of Systems Unremarkable Constitutional: Reports as per HPI Eyes: Reports as per HPI Reports as per HPI Cardiovascular: Reports as per HPI Respiratory: Reports as per HPI Gastrointestinal: Reports as per HPI Musculoskeletal: Reports as per HPI Skin/Breast: Reports as per HPI Reports as per HPI Psychiatric: Reports as per HPI Endocrine: Reports as per HPI Hematologic/Lymphatic: Reports as per HPI Allergic/Immunologic: Reports as per HPI Mental Status Exam Mental Status Exam Narrative: Preoocupied with getting her medical records from other facilities. Slept OK Patient Appearance: Well Grooomed Patient Orientation: Person, Place and Situation Level of Consciousness: Alert Patient Behavior: Talkative, Suspicious, Restless and Distractible Mood Description: Anxious, Labile and Apprehensive Affect Description: Suspicious, Anxious, Labile and Apprehensive Patient Cognition Impaired: No Ability to Follow Directions: Good Speech Pattern: Perseverating, Rambling, Rapid, Excessive and Pressured Memory Description: Working Impaired Hallucinations: None Delusions: Paranoid Ideation Thought Process: Racing and Distracted Diagnostics Vital Signs (24Hr): Vital Signs - 24 hr 12/10/22 21:49 12/11/22 08:10 Temperature 98.1 F 97.9 F Pulse Rate 73 88 Respiratory Rate 18 16 Blood Pressure 132/88 127/93 H Pulse Oximetry 99 98 Oxygen Delivery Method Room Air Room Air BMI result Body Mass Index 21.9 Labs 12/09/22 08:41 11/23/22 13:00 Labs: Laboratory Results - last 48 hr 12/10/22 08:36 Ammonia 24 Medications Medications Current Medications Acetaminophen (Acetaminophen 325 Mg Tablet) 650 mg PO Q6H PRN PRN Reason: Headache/Pain Mild Scale (1-3) Last Admin: 12/04/22 19:38 Dose: 650 mg Al Hydroxide/Mg Hydroxide (Magnesium Hydrox/Alum Hydrox 30 Ml Oral.Susp) 30 ml PO Q6H PRN PRN Reason: Heartburn/Nausea Last Admin: 12/11/22 09:43 Dose: 30 ml Amlodipine Besylate (Amlodipine Besylate 10 Mg Tablet) 10 mg PO DAILY JAKE; Protocol Last Admin: 12/11/22 08:37 Dose: Not Given Aripiprazole (Aripiprazole 15 Mg Tablet) 15 mg PO DAILY JAKE Last Admin: 12/11/22 08:38 Dose: 15 mg Clonazepam (Clonazepam 1 Mg Tablet) 1 mg PO BEDTIME JAKE Last Admin: 12/10/22 20:34 Dose: 1 mg Clonazepam (Clonazepam 1 Mg Tablet) 1 mg PO BEDTIME PRN PRN Reason: Insomnia Last Admin: 12/11/22 02:45 Dose: 1 mg Clonidine HCl (Clonidine Hcl 0.1 Mg Tablet) 0.1 mg PO TID PRN; Protocol PRN Reason: Anxiety Last Admin: 12/11/22 08:49 Dose: 0.1 mg Clonidine HCl (Clonidine Hcl 0.1 Mg Tablet) 0.1 mg PO BEDTIME JAKE; Protocol Last Admin: 12/10/22 20:34 Dose: 0.1 mg Divalproex Sodium (Divalproex Sodium 500 Mg Tablet.) 500 mg PO BEDTIME JAKE Last Admin: 12/10/22 20:34 Dose: 500 mg Divalproex Sodium (Divalproex Sodium 250 Mg Tablet.Dr) 250 mg PO BID@0830,1430 JAKE Last Admin: 12/11/22 08:38 Dose: 250 mg Lactulose (Lactulose 20 Gm/30 Ml Solution) 15 gm PO BEDTIME JAKE Last Admin: 12/10/22 20:32 Dose: 15 gm Magnesium Hydroxide (Milk Of Magnesia 30 Ml Oral.Susp) 30 ml PO DAILY PRN PRN Reason: Constipation Nicotine Polacrilex (Nicotine Polacrilex Lozenge 4 Mg Lozenge) 4 mg BUCCAL Q2H PRN PRN Reason: Nicotine Cravings Last Admin: 12/10/22 14:49 Dose: 4 mg Olanzapine (Olanzapine 5 Mg Tablet) 5 mg PO Q4H PRN PRN Reason: Psychosis Last Admin: 12/11/22 01:50 Dose: 5 mg Olanzapine (Olanzapine Odt 10 Mg Tab.Rapdis) 10 mg TRANSLINGU BEDTIME JAKE Last Admin: 12/10/22 20:35 Dose: 10 mg Thiamine HCl (Thiamine Hcl 100 Mg Tablet) 100 mg PO DAILY JAKE Last Admin: 12/11/22 08:38 Dose: 100 mg Allergies Allergies Allergy/AdvReac Type Severity Reaction Status Date / Time bupropion [From Wellbutrin] Allergy Unknown Verified 11/15/22 23:35 Assessment & Plan Assessment & Plan (1) Severe manic bipolar 1 disorder with psychotic behavior: Status: Acute Code(s): F31.2 - Bipolar disorder, current episode manic severe with psychotic features (2) History of alcohol use disorder: Status: Acute Code(s): Z87.898 - Personal history of other specified conditions Plan Patient is a 42 year old female with hx of bipolar d/o who self presented to [facility] ER after calling 911 and reporting she was in crisis . When arrived to ER, pt struggled to engage with staff and presented with mumbled speech. Collateral was obtained from and sister. Plan: CV 15 minute checks. Obtain collateral 11/17: Patient continues to have circumstantial thought content and paranoid delusions. Patient reports she want to live but knows if I have medications then I'll take them all . Patient reports she feels safe on the unit. Retracted 3 day. Will increase lithium and vraylar doses. Patient aware and is in agreement. 11/18: Dr. Obando and T/W met with patient and sister today. Pt continues with racing thoughts and circumstantial thought content. Denies suicidal ideation. [place] to be increased to 600mg PO BID; patient aware. CIWA D/C'd d/t scoring low and no withdrawal symptoms. facilities maintenance worker to obtain records from [facility] with patients consent. 11/19: Patient reports difficulty sleeping. Continues with rapid speech, racing thoughts and circumstantial thought content. Signed 3 day last night, Patient reports she will retract on Tuesday if I don't feel better . Will add Seroquel at bedtime for sleep. seroquel added for insomnia monitor bp watch for s/e confusion with amlodipine lithium monitor creat watch for edema 11/20: No changes to current treatment regimen as Seroquel just added and patient declining any other changes 11/21: no changes- encourage current meds 11/22: Patient presents worsening in symptoms since Tuesday. Increased disorganization and paranoia; patient reports she has not slept. Ordered Ativan 2mg PO once, pt slept for 2.5 hours then woke up; Was then given Seroquel 50mg PO once; waiting on results. Patient retracted 3 day. Labs ordered, lithium level 0.83. Potassium 3.1; ordered hospitalist consult. UA pending. 11/23 pt appears delirious- if related to alcohol withdrawal, delirium tremens often seen> 96 hrs after last drink. Otherwise wondering if lithium. will hold lithium. give ativan 2mg and schedule ativan 2mg po qhs. d/c ambien. May need much higher doses if in DTs. 11/24: Patient continues disorganized, however presents with better insight. States she knows she is being delusional and not making sense . She was able to vocalize medications that have helped her in the past. D/C ativan; possibly making her confused. Started on risperdal d/t patient reporting she had never tried. Agreed to trial. Risks/benefits discussed. Starting Depakote to assist in decreasing dannielle. T/W spoke to sister (Constanza); gave her update on patient's treatment plan. Sister expressed gratitude towards staff/communication. 11/25: Patient reports feeling better than yesterday. Continues to present disorganized; singing at times. Is able to have a logical conversation at times. Was given a one time dose of Haldol 5mg PO; pt continues to report she is not sleeping at night. Waiting on collateral from [facility] and [facility]. 11/26: Pt presents much approved today. Presents calm,with slower speech, not as accelerated. Pt stated, I feel better today; I slept . Continues to have disorganized thought process but is able to have logical conversations in-between the disorganization. Pt stated, my thoughts are very disorganized . Was able to attend meditation group. Continue with current tx plan. 11/27: more organized. still not sleeping. agreeable to increase VPA to 1000 mg daily and to reschedule all to HS. 11/28: slept about 3-4 hours last night. bizarrely repeatedly lowering herself to the floor in the past 24 H: i think i'm gonna fall. continue current mgmt for today. 11/29: slept 5 hours overnight, more fluid and spontaneous today, more organized. DC risperidone per pt request, start abilify. concern of weight gain. continue VPA 1000 mg QHS. 11/30: Pt reports mood is a lot better ; reports sleeping well last night but continues to feel tired. Would like a therapist who can focus on her trauma. Continue current tx plan. 12/01: 1:1 discontinued, placed on 5 minute checks. Pt reports feeling better and not paranoid . Continues with tangential thought content. Continues to not sleep well at night. Increased ammonia level;Will give lactulose, hold Depakote and increase Abilify to 10mg PO daily. Patient notified. 12/02: Pt continues to report not sleeping well. Ammonia level today is 26. Patient notified. Lactulose will be decreased to once a day. Will restart Depakote 250mg PO BID and continue to monitor. Patient placed back on 15 minute safety checks. 12/03: Continues not sleeping well. Patient reports she does not feel as clear as yesterday . Tangential during 1:1. Patient focused on past trauma. Retracted 3 day. Started Klonopin 1mg PO bedtime. 12/04: Slept somewhat better per report. Consider increasing depakote but would need to recheck ammonia 12/05: recheck ammonia level. discontinue trazodone due to possible akathisia. Add PRN klonopin 12/06/2022 Patient in one-to-one was less labile more organized remains quite disorganized in the milieu. Ammonia level now within normal limits on lactulose recheck ammonia in morning gradually increase Depakote as tolerated to therapeutic levels may need increase in Abilify for manic doses has significant insomnia trazodone discontinued 12/07/2022 Patient with variable periods of intense lability pressured speech disorganization and at times paranoia and fearfulness. Seeing meaning in different things feelings of derealization depersonalization fear in paranoia. Increase Depakote olanzapine p.r.n. history of past stabilizations on olanzapine and Depakote but did gain a significant amount of weight 12/08/2022 Abilify 15 mg daily Seroquel 100 at bedtime increase Depakote check level and ammonia level in the morning encourage treatment compliance needs much reassurance and education 12/09/2022 Increase Depakote to 1000 mg a day check ammonia level in the morning patient does have a history of being on Depakote and lithium with reported relatively good affect history of 1 prior manic psychotic episode greater than 15 years ago spoke with patient agreed to change Seroquel to olanzapine at bedtime hopefully will help retrain sleep continue Abilify 15 mg for now 12/11: Continue current plan. Reason for continued inpatient stay Substantial Risk for: harm to self, inability to function and rapid decompensation Time Spent With Patient Time: Total time managing care of this patient today ____ minutes.
[2022-12-11] MEDS: Lactulose 20 GM/30 ML SOLUTION 15 GM PO (20:10)
[2022-12-11] MEDS: Divalproex Sodium 500 MG TABLET.DR PO (20:11)
[2022-12-11] MEDS: OLANZapine ODT 10 MG TAB.RAPDIS TRANSLINGU (20:11)
[2022-12-11 22:00] VITALS: BP 122/83; PULSE 81; RESP 18; TEMP 36.6; O2SAT 99
[2022-12-11] MEDS: Nicotine Polacrilex Lozenge 4 MG LOZENGE BUCCAL (22:48)
[2022-12-12 09:25] VITALS: BP 123/82; PULSE 84; RESP 16; TEMP 36.6; O2SAT 100
[2022-12-12] MEDS: Thiamine HCL 100 MG TABLET PO (09:46)
[2022-12-12] MEDS: ARIPiprazole 15 MG TABLET PO (09:46)
[2022-12-12] MEDS: Divalproex Sodium 250 MG TABLET.DR PO ×2 (09:47→14:33)
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
[2022-12-12] MEDS: Nicotine Polacrilex Lozenge 4 MG LOZENGE BUCCAL (15:38)
[2022-12-12 21:55] VITALS: BP 132/91; PULSE 81; RESP 16; TEMP 36.6; O2SAT 96
[2022-12-12] MEDS: Divalproex Sodium 500 MG TABLET.DR PO (22:02)
[2022-12-12] MEDS: cloNIDine HCL 0.1 MG TABLET PO (22:02)
[2022-12-12] MEDS: clonazePAM 1 MG TABLET PO (22:02)
[2022-12-12] MEDS: Lactulose 20 GM/30 ML SOLUTION 15 GM PO (22:03)
[2022-12-12] MEDS: OLANZapine ODT 10 MG TAB.RAPDIS TRANSLINGU (22:03)
[2022-12-12] MEDS: OLANZapine 5 MG TABLET PO (23:49)
[2022-12-13] MEDS: clonazePAM 1 MG TABLET PO ×2 (02:49→20:38)
[2022-12-13 05:51] VITALS: BP 137/85; PULSE 82; RESP 18
[2022-12-13] MEDS: cloNIDine HCL 0.1 MG TABLET PO ×2 (05:53→20:38)
--- NOTE | 2022-12-13 06:36 | PC.NURSE ---
At 0553, Yisel was given clonidine PO prn for increased anxiety.
[2022-12-13 08:35] VITALS: BP 106/73; PULSE 100; RESP 20; TEMP 36.7; O2SAT 100
[2022-12-13] MEDS: Divalproex Sodium 250 MG TABLET.DR PO ×2 (09:49→15:31)
[2022-12-13] MEDS: Thiamine HCL 100 MG TABLET PO (09:49)
[2022-12-13] MEDS: amLODIPine Besylate 10 MG TABLET PO (09:49)
[2022-12-13] MEDS: ARIPiprazole 15 MG TABLET PO (09:49)
[2022-12-13 10:52] LABS: Ammonia 26 umol/L (13-55)
--- NOTE | 2022-12-13 12:28 | P.PNPSI_ITS ---
pt seen with and hx reviewed past med trials reviewed case reviwed with [employer] tx plan reviewed improvement noted Subjective Subjective Date of Service: 12/13/22 Reason For Visit: Bipolar Disorder Subjective Notes: Conditional Voluntary Interim History: Reviewed in team and with Dr. Obando. Pt presents with rapid speech, tangential thought process. Pleasant during 1:1. Patient states she is having a difficult time focusing. Pt stated, I know the ECT put me into a manic episode . Pt reports she does not want to be labeled as Bipolar because of the stigma . She reports trying to not take naps throughout the day to improve sleep at night. Plans on visiting with this afternoon. Medication Compliance: Yes Attending Groups: Intermittent Review of Systems Constitutional: Reports as per HPI Eyes: Reports as per HPI Reports as per HPI Cardiovascular: Reports as per HPI Respiratory: Reports as per HPI Gastrointestinal: Reports as per HPI Genitourinary: Reports as per HPI Musculoskeletal: Reports as per HPI Skin/Breast: Reports as per HPI Reports as per HPI Psychiatric: Reports as per HPI Endocrine: Reports as per HPI Hematologic/Lymphatic: Reports as per HPI Allergic/Immunologic: Reports as per HPI Mental Status Exam Mental Status Exam Narrative: Pt is alert and oriented; behavior is cooperative, friendly and calm; patient is not in distress; dressed in casual attire; mood is described as anxious ; eye contact appropriate; Speech is rapid, volume and prosody are normal, not pressured; no psychomotor agitation/retardation present; thought process is organized; Thought content is tangential; otherwise pertinent to relevant topics and without any delusional content, paranoid ideations or grandiosity; denies any SI/HI. There is no evidence of perceptual disturbance. Patients insight and judgment are improving. Diagnostics Vital Signs (24Hr): Vital Signs - 24 hr 12/12/22 21:55 12/13/22 05:51 12/13/22 08:35 Temperature 98 F 98.1 F Pulse Rate 81 82 100 Respiratory Rate 16 18 20 Blood Pressure 132/91 H 137/85 106/73 Pulse Oximetry 96 100 Oxygen Delivery Method Room Air Room Air BMI result Body Mass Index 21.9 Labs 12/09/22 08:41 11/23/22 13:00 Labs: Laboratory Results - last 48 hr 12/13/22 10:31 Ammonia 26 Medications Medications Current Medications Acetaminophen (Acetaminophen 325 Mg Tablet) 650 mg PO Q6H PRN PRN Reason: Headache/Pain Mild Scale (1-3) Last Admin: 12/04/22 19:38 Dose: 650 mg Al Hydroxide/Mg Hydroxide (Magnesium Hydrox/Alum Hydrox 30 Ml Oral.Susp) 30 ml PO Q6H PRN PRN Reason: Heartburn/Nausea Last Admin: 12/11/22 09:43 Dose: 30 ml Amlodipine Besylate (Amlodipine Besylate 10 Mg Tablet) 10 mg PO DAILY JAKE; Protocol Last Admin: 12/13/22 09:49 Dose: 10 mg Aripiprazole (Aripiprazole 15 Mg Tablet) 15 mg PO DAILY JAKE Last Admin: 12/13/22 09:49 Dose: 15 mg Clonazepam (Clonazepam 1 Mg Tablet) 1 mg PO BEDTIME JAKE Last Admin: 12/12/22 22:02 Dose: 1 mg Clonazepam (Clonazepam 1 Mg Tablet) 1 mg PO BEDTIME PRN PRN Reason: Insomnia Last Admin: 12/13/22 02:49 Dose: 1 mg Clonidine HCl (Clonidine Hcl 0.1 Mg Tablet) 0.1 mg PO TID PRN; Protocol PRN Reason: Anxiety Last Admin: 12/13/22 05:53 Dose: 0.1 mg Clonidine HCl (Clonidine Hcl 0.1 Mg Tablet) 0.1 mg PO BEDTIME JAKE; Protocol Last Admin: 12/12/22 22:02 Dose: 0.1 mg Divalproex Sodium (Divalproex Sodium 500 Mg Tablet.Dr) 500 mg PO BEDTIME JAKE Last Admin: 12/12/22 22:02 Dose: 500 mg Divalproex Sodium (Divalproex Sodium 250 Mg Tablet.) 250 mg PO BID@0830,1430 JAKE Last Admin: 12/13/22 09:49 Dose: 250 mg Lactulose (Lactulose 20 Gm/30 Ml Solution) 15 gm PO BEDTIME JAKE Last Admin: 12/12/22 22:03 Dose: 15 gm Magnesium Hydroxide (Milk Of Magnesia 30 Ml Oral.Susp) 30 ml PO DAILY PRN PRN Reason: Constipation Nicotine Polacrilex (Nicotine Polacrilex Lozenge 4 Mg Lozenge) 4 mg BUCCAL Q2H PRN PRN Reason: Nicotine Cravings Last Admin: 12/12/22 15:38 Dose: 4 mg Olanzapine (Olanzapine 5 Mg Tablet) 5 mg PO Q4H PRN PRN Reason: Psychosis Last Admin: 12/12/22 23:49 Dose: 5 mg Olanzapine (Olanzapine Odt 10 Mg Tab.Rapdis) 10 mg TRANSLINGU BEDTIME JAKE Last Admin: 12/12/22 22:03 Dose: 10 mg Thiamine HCl (Thiamine Hcl 100 Mg Tablet) 100 mg PO DAILY [facility] Last Admin: 12/13/22 09:49 Dose: 100 mg Allergies Allergies Allergy/AdvReac Type Severity Reaction Status Date / Time bupropion [From Wellbutrin] Allergy Unknown Verified 11/15/22 23:35 Assessment & Plan Assessment & Plan (1) Severe manic bipolar 1 disorder with psychotic behavior: Status: Acute Code(s): F31.2 - Bipolar disorder, current episode manic severe with psychotic features (2) History of alcohol use disorder: Status: Acute Code(s): Z87.898 - Personal history of other specified conditions Plan Patient is a 42 year old female with hx of bipolar d/o who self presented to [facility] ER after calling 911 and reporting she was in crisis . When arrived to ER, pt struggled to engage with staff and presented with mumbled speech. Collateral was obtained from and sister. Plan: CV 15 minute checks. Obtain collateral 11/17: Patient continues to have circumstantial thought content and paranoid delusions. Patient reports she want to live but knows if I have medications then I'll take them all . Patient reports she feels safe on the unit. Retracted 3 day. Will increase lithium and vraylar doses. Patient aware and is in agreement. 11/18: Dr. Obando and T/W met with patient and sister today. Pt continues with racing thoughts and circumstantial thought content. Denies suicidal ideation. [place] to be increased to 600mg PO BID; patient aware. CIWA D/C'd d/t scoring low and no withdrawal symptoms. tangled yarn worker to obtain records from [facility] with patients consent. 11/19: Patient reports difficulty sleeping. Continues with rapid speech, racing thoughts and circumstantial thought content. Signed 3 day last night, Patient reports she will retract on Tuesday if I don't feel better . Will add Seroquel at bedtime for sleep. seroquel added for insomnia monitor bp watch for s/e confusion with amlodipine lithium monitor creat watch for edema 11/20: No changes to current treatment regimen as Seroquel just added and patient declining any other changes 11/21: no changes- encourage current meds 11/22: Patient presents worsening in symptoms since Tuesday. Increased disorganization and paranoia; patient reports she has not slept. Ordered Ativan 2mg PO once, pt slept for 2.5 hours then woke up; Was then given Seroquel 50mg PO once; waiting on results. Patient retracted 3 day. Labs ordered, lithium level 0.83. Potassium 3.1; ordered hospitalist consult. UA pending. 11/23 pt appears delirious- if related to alcohol withdrawal, delirium tremens often seen> 96 hrs after last drink. Otherwise wondering if lithium. will hold lithium. give ativan 2mg and schedule ativan 2mg po qhs. d/c ambien. May need much higher doses if in DTs. 11/24: Patient continues disorganized, however presents with better insight. States she knows she is being delusional and not making sense . She was able to vocalize medications that have helped her in the past. D/C ativan; possibly making her confused. Started on risperdal d/t patient reporting she had never tried. Agreed to trial. Risks/benefits discussed. Starting Depakote to assist in decreasing dannielle. T/W spoke to sister (Constanza); gave her update on patient's treatment plan. Sister expressed gratitude towards staff/communication. 11/25: Patient reports feeling better than yesterday. Continues to present disorganized; singing at times. Is able to have a logical conversation at times. Was given a one time dose of Haldol 5mg PO; pt continues to report she is not sleeping at night. Waiting on collateral from [facility] and [facility]. 11/26: Pt presents much approved today. Presents calm,with slower speech, not as accelerated. Pt stated, I feel better today; I slept . Continues to have disorganized thought process but is able to have logical conversations in- between the disorganization. Pt stated, my thoughts are very disorganized . Was able to attend meditation group. Continue with current tx plan. 11/27: more organized. still not sleeping. agreeable to increase VPA to 1000 mg daily and to reschedule all to HS. 11/28: slept about 3-4 hours last night. bizarrely repeatedly lowering herself to the floor in the past 24 H: i think i'm gonna fall. continue current mgmt for today. 11/29: slept 5 hours overnight, more fluid and spontaneous today, more organized. DC risperidone per pt request, start abilify. concern of weight gain. continue VPA 1000 mg QHS. 11/30: Pt reports mood is a lot better ; reports sleeping well last night but continues to feel tired. Would like a therapist who can focus on her trauma. Continue current tx plan. 12/01: 1:1 discontinued, placed on 5 minute checks. Pt reports feeling better and not paranoid . Continues with tangential thought content. Continues to not sleep well at night. Increased ammonia level;Will give lactulose, hold Depakote and increase Abilify to 10mg PO daily. Patient notified. 12/02: Pt continues to report not sleeping well. Ammonia level today is 26. Patient notified. Lactulose will be decreased to once a day. Will restart Depakote 250mg PO BID and continue to monitor. Patient placed back on 15 minute safety checks. 12/03: Continues not sleeping well. Patient reports she does not feel as clear as yesterday . Tangential during 1:1. Patient focused on past trauma. Retracted 3 day. Started Klonopin 1mg PO bedtime. 12/04: Slept somewhat better per report. Consider increasing depakote but would need to recheck ammonia 12/05: recheck ammonia level. discontinue trazodone due to possible akathisia. Add PRN klonopin 12/06: Patient in one-to-one was less labile more organized remains quite disorganized in the milieu. Ammonia level now within normal limits on lactulose recheck ammonia in morning gradually increase Depakote as tolerated to therapeutic levels may need increase in Abilify for manic doses has significant insomnia trazodone discontinued 12/07: Patient with variable periods of intense lability pressured speech disorganization and at times paranoia and fearfulness. Seeing meaning in different things feelings of derealization depersonalization fear in paranoia. Increase Depakote olanzapine p.r.n. history of past stabilizations on olanzapine and Depakote but did gain a significant amount of weight 12/08: Abilify 15 mg daily Seroquel 100 at bedtime increase Depakote check level and ammonia level in the morning encourage treatment compliance needs much reassurance and education 12/09: Increase Depakote to 1000 mg a day check ammonia level in the morning jorge luis ent does have a history of being on Depakote and lithium with reported relatively good affect history of 1 prior manic psychotic episode greater than 15 years ago spoke with patient agreed to change Seroquel to olanzapine at bedtime hopefully will help retrain sleep continue Abilify 15 mg for now 12/11: Continue current plan. 12/12: Continue current treatment plan. 12/13: Pt presents with rapid speech, tangential thought process. States she is having a difficult time focusing. Pt reports she does not want to be labeled as bipolar because of the stigma . pt is trying to not take naps throughout the day to improve sleep at night. Plans on visiting with this afternoon. Ammonia level 26 today. Patient educated on: diagnosis, medication risk/benefits and therapeutic strategies Informed Consent: understands Reason for continued inpatient stay Substantial Risk for: med/psych decompensation Time Spent With Patient Time: Total time managing care of this patient today _30___ minutes.
[2022-12-13] MEDS: OLANZapine 5 MG TABLET PO ×2 (15:43→22:54)
[2022-12-13 20:03] VITALS: BP 130/85; PULSE 83; RESP 18; TEMP 36.7; O2SAT 100
[2022-12-13] MEDS: Lactulose 20 GM/30 ML SOLUTION 15 GM PO (20:36)
[2022-12-13] MEDS: Divalproex Sodium 500 MG TABLET.DR PO (20:39)
[2022-12-13] MEDS: OLANZapine ODT 10 MG TAB.RAPDIS TRANSLINGU (20:40)
[2022-12-13 22:00] VITALS: BP 130/85; PULSE 83; RESP 18; TEMP 36.7; O2SAT 100
[2022-12-14] MEDS: clonazePAM 1 MG TABLET PO ×2 (01:09→21:40)
[2022-12-14] MEDS: cloNIDine HCL 0.1 MG TABLET PO ×3 (01:39→21:40)
[2022-12-14 08:20] VITALS: BP 128/80; PULSE 77; RESP 20; TEMP 36.3; O2SAT 98
--- NOTE | 2022-12-14 09:18 | P.PNPSI_ITS ---
Assessment and treatment plan reviewed with nurse practitioner Liv Gee The patient appears to be stabilizing no adverse effects noted no confusional states or delirium Monitor Depakote level LFTs ammonia level Eventual referral to [facility] program at [place] Subjective Subjective Date of Service: 12/14/22 Reason For Visit: Bipolar Disorder Subjective Notes: Conditional Voluntary Interim History: Reviewed in team and with Dr. Obando. Pt continues to present with rapid speech and tangential thought process. Patient continues to state she is having a difficult time focusing. Patient stated, I can feel the Depakote stabilizing my mood . Patient became tearful during 1:1 and stated she is worried I may never work again because of my mental illness . Patient reports she plans on trying to make a daily schedule for herself to keep her organized. Medication Compliance: Yes Side effects from medications: No Attending Groups: Intermittent Review of Systems Review of Systems Unremarkable Constitutional: Reports as per HPI Eyes: Reports as per HPI Reports as per HPI Cardiovascular: Reports as per HPI Respiratory: Reports as per HPI Gastrointestinal: Reports as per HPI Genitourinary: Reports as per HPI Musculoskeletal: Reports as per HPI Skin/Breast: Reports as per HPI Reports as per HPI Psychiatric: Reports as per HPI Endocrine: Reports as per HPI Hematologic/Lymphatic: Reports as per HPI Allergic/Immunologic: Reports as per HPI Mental Status Exam Mental Status Exam Narrative: Pt is alert and oriented; behavior is cooperative, friendly and calm; patient is not in distress; dressed in casual attire; mood is described as anxious ; eye contact appropriate; Speech is rapid, volume and prosody are normal, not pressured; no psychomotor agitation/retardation present; thought process is organized; Thought content is tangential; otherwise pertinent to relevant topics and without any delusional content, paranoid ideations or grandiosity; denies any SI/HI. There is no evidence of perceptual disturbance. Patients insight and judgment are improving. Diagnostics Vital Signs (24Hr): Vital Signs - 24 hr 12/13/22 20:03 12/13/22 22:00 Temperature 98.0 F 98.0 F Pulse Rate 83 83 Respiratory Rate 18 18 Blood Pressure 130/85 130/85 Pulse Oximetry 100 100 Oxygen Delivery Method Room Air BMI result Body Mass Index 21.9 Labs 12/09/22 08:41 11/23/22 13:00 Labs: Laboratory Results - last 48 hr 12/13/22 10:31 Ammonia 26 Medications Medications Current Medications Acetaminophen (Acetaminophen 325 Mg Tablet) 650 mg PO Q6H PRN PRN Reason: Headache/Pain Mild Scale (1-3) Last Admin: 12/04/22 19:38 Dose: 650 mg Al Hydroxide/Mg Hydroxide (Magnesium Hydrox/Alum Hydrox 30 Ml Oral.Susp) 30 ml PO Q6H PRN PRN Reason: Heartburn/Nausea Last Admin: 12/11/22 09:43 Dose: 30 ml Amlodipine Besylate (Amlodipine Besylate 10 Mg Tablet) 10 mg PO DAILY JAKE; Protocol Last Admin: 12/13/22 09:49 Dose: 10 mg Aripiprazole (Aripiprazole 15 Mg Tablet) 15 mg PO DAILY JAKE Last Admin: 12/13/22 09:49 Dose: 15 mg Clonazepam (Clonazepam 1 Mg Tablet) 1 mg PO BEDTIME JAKE Last Admin: 12/13/22 20:38 Dose: 1 mg Clonazepam (Clonazepam 1 Mg Tablet) 1 mg PO BEDTIME PRN PRN Reason: Insomnia Last Admin: 12/14/22 01:09 Dose: 1 mg Clonidine HCl (Clonidine Hcl 0.1 Mg Tablet) 0.1 mg PO TID PRN; Protocol PRN Reason: Anxiety Last Admin: 12/14/22 01:39 Dose: 0.1 mg Clonidine HCl (Clonidine Hcl 0.1 Mg Tablet) 0.1 mg PO BEDTIME JAKE; Protocol Last Admin: 12/13/22 20:38 Dose: 0.1 mg Divalproex Sodium (Divalproex Sodium 500 Mg Tablet.Dr) 500 mg PO BEDTIME JAKE Last Admin: 12/13/22 20:39 Dose: 500 mg Divalproex Sodium (Divalproex Sodium 250 Mg Tablet.) 250 mg PO BID@0830,1430 JAKE Last Admin: 12/13/22 15:31 Dose: 250 mg Lactulose (Lactulose 20 Gm/30 Ml Solution) 15 gm PO BEDTIME JAKE Last Admin: 12/13/22 20:36 Dose: 15 gm Magnesium Hydroxide (Milk Of Magnesia 30 Ml Oral.Susp) 30 ml PO DAILY PRN PRN Reason: Constipation Nicotine Polacrilex (Nicotine Polacrilex Lozenge 4 Mg Lozenge) 4 mg BUCCAL Q2H PRN PRN Reason: Nicotine Cravings Last Admin: 12/12/22 15:38 Dose: 4 mg Olanzapine (Olanzapine 5 Mg Tablet) 5 mg PO Q4H PRN PRN Reason: Psychosis Last Admin: 12/13/22 22:54 Dose: 5 mg Olanzapine (Olanzapine Odt 10 Mg Tab.Rapdis) 10 mg TRANSLINGU BEDTIME [facility] Last Admin: 12/13/22 20:40 Dose: 10 mg Thiamine HCl (Thiamine Hcl 100 Mg Tablet) 100 mg PO DAILY [facility] Last Admin: 12/13/22 09:49 Dose: 100 mg Allergies Allergies Allergy/AdvReac Type Severity Reaction Status Date / Time bupropion [From Wellbutrin] Allergy Unknown Verified 11/15/22 23:35 Assessment & Plan Assessment & Plan (1) Severe manic bipolar 1 disorder with psychotic behavior: Status: Acute Code(s): F31.2 - Bipolar disorder, current episode manic severe with psychotic features (2) History of alcohol use disorder: Status: Acute Code(s): Z87.898 - Personal history of other specified conditions Plan Patient is a 42 year old female with hx of bipolar d/o who self presented to [facility] ER after calling 911 and reporting she was in crisis . When arrived to ER, pt struggled to engage with staff and presented with mumbled speech. Collateral was obtained from and sister. Plan: CV 15 minute checks. Obtain collateral 11/17: Patient continues to have circumstantial thought content and paranoid delusions. Patient reports she want to live but knows if I have medications then I'll take them all . Patient reports she feels safe on the unit. Retracted 3 day. Will increase lithium and vraylar doses. Patient aware and is in agreement. 11/18: Dr. Obando and T/W met with patient and sister today. Pt continues with racing thoughts and circumstantial thought content. Denies suicidal ideation. [place] to be increased to 600mg PO BID; patient aware. CIWA D/C'd d/t scoring low and no withdrawal symptoms. caseworker intake to obtain records from [facility] with patients consent. 11/19: Patient reports difficulty sleeping. Continues with rapid speech, racing thoughts and circumstantial thought content. Signed 3 day last night, Patient re ports she will retract on Tuesday if I don't feel better . Will add Seroquel at bedtime for sleep. seroquel added for insomnia monitor bp watch for s/e confusion with amlodipine lithium monitor creat watch for edema 11/20: No changes to current treatment regimen as Seroquel just added and patient declining any other changes 11/21: no changes- encourage current meds 11/22: Patient presents worsening in symptoms since Tuesday. Increased disorganization and paranoia; patient reports she has not slept. Ordered Ativan 2mg PO once, pt slept for 2.5 hours then woke up; Was then given Seroquel 50mg PO once; waiting on results. Patient retracted 3 day. Labs ordered, lithium level 0.83. Potassium 3.1; ordered hospitalist consult. UA pending. 11/23 pt appears delirious- if related to alcohol withdrawal, delirium tremens often seen> 96 hrs after last drink. Otherwise wondering if lithium. will hold lithium. give ativan 2mg and schedule ativan 2mg po qhs. d/c ambien. May need much higher doses if in DTs. 11/24: Patient continues disorganized, however presents with better insight. States she knows she is being delusional and not making sense . She was able to vocalize medications that have helped her in the past. D/C ativan; possibly making her confused. Started on risperdal d/t patient reporting she had never tried. Agreed to trial. Risks/benefits discussed. Starting Depakote to assist in decreasing dannielle. T/W spoke to sister (Constanza); gave her update on patient's treatment plan. Sister expressed gratitude towards staff/communication. 11/25: Patient reports feeling better than yesterday. Continues to present disorganized; singing at times. Is able to have a logical conversation at times. Was given a one time dose of Haldol 5mg PO; pt continues to report she is not sleeping at night. Waiting on collateral from [facility]. 11/26: Pt presents much approved today. Presents calm,with slower speech, not as accelerated. Pt stated, I feel better today; I slept . Continues to have disorganized thought process but is able to have logical conversations in- between the disorganization. Pt stated, my thoughts are very disorganized . Was able to attend meditation group. Continue with current tx plan. 11/27: more organized. still not sleeping. agreeable to increase VPA to 1000 mg daily and to reschedule all to HS. 11/28: slept about 3-4 hours last night. bizarrely repeatedly lowering herself to the floor in the past 24 H: i think i'm gonna fall. continue current mgmt for today. 11/29: slept 5 hours overnight, more fluid and spontaneous today, more organized. DC risperidone per pt request, start abilify. concern of weight gain. continue VPA 1000 mg QHS. 11/30: Pt reports mood is a lot better ; reports sleeping well last night but continues to feel tired. Would like a therapist who can focus on her trauma. Continue current tx plan. 12/01: 1:1 discontinued, placed on 5 minute checks. Pt reports feeling better and not paranoid . Continues with tangential thought content. Continues to not sleep well at night. Increased ammonia level;Will give lactulose, hold Depakote and increase Abilify to 10mg PO daily. Patient notified. 12/02: Pt continues to report not sleeping well. Ammonia level today is 26. Patient notified. Lactulose will be decreased to once a day. Will restart Depakote 250mg PO BID and continue to monitor. Patient placed back on 15 minute safety checks. 12/03: Continues not sleeping well. Patient reports she does not feel as clear as yesterday . Tangential during 1:1. Patient focused on past trauma. Retracted 3 day. Started Klonopin 1mg PO bedtime. 12/04: Slept somewhat better per report. Consider increasing depakote but would need to recheck ammonia 12/05: recheck ammonia level. discontinue trazodone due to possible akathisia. Add PRN klonopin 12/06: Patient in one-to-one was less labile more organized remains quite disorganized in the milieu. Ammonia level now within normal limits on lactulose recheck ammonia in morning gradually increase Depakote as tolerated to therapeutic levels may need increase in Abilify for manic doses has significant insomnia trazodone discontinued 12/07: Patient with variable periods of intense lability pressured speech disorganization and at times paranoia and fearfulness. Seeing meaning in different things feelings of derealization depersonalization fear in paranoia. Increase Depakote olanzapine p.r.n. history of past stabilizations on olanzapine and Depakote but did gain a significant amount of weight 12/08: Abilify 15 mg daily Seroquel 100 at bedtime increase Depakote check level and ammonia level in the morning encourage treatment compliance needs much reassurance and education 12/09: Increase Depakote to 1000 mg a day check ammonia level in the morning patient does have a history of being on Depakote and lithium with reported relatively good affect history of 1 prior manic psychotic episode greater than 15 years ago spoke with patient agreed to change Seroquel to olanzapine at bedtime hopefully will help retrain sleep continue Abilify 15 mg for now 12/11: Continue current plan. 12/12: Continue current treatment plan. 12/13: Pt presents with rapid speech, tangential thought process. States she is having a difficult time focusing. Pt reports she does not want to be labeled as bipolar because of the stigma . pt is trying to not take naps throughout the day to improve sleep at night. Plans on visiting with this afternoon. Ammonia level 26 today. 12/14: Patient stated, I can feel the Depakote stabilizing my mood . Patient reports she plans on trying to make a daily schedule for herself to keep her organized. Valporic acid level 67.4. Will increase Depakote to daily dose of 1250mg. Patient educated on: diagnosis, medication risk/benefits and therapeutic strategies Informed Consent: understands Reason for continued inpatient stay Substantial Risk for: med/psych decompensation Time Spent With Patient Time: Total time managing care of this patient today ____ minutes.
[2022-12-14 09:44] LABS: MANUAL DIFF FLAG NO
[2022-12-14 09:45] LABS: Basophils Percent Auto 0.5 % (0-2); Eosinophils Absolute Auto 0.1 X10*3/uL (0.0-0.4); Eosinophils Percent Auto 1.8 % (0-4); Hematocrit 41.2 % (37.0-47.0); Hemoglobin 13.1 g/dl (12.0-16.0); Imm Gran Abs Auto 0.02 X10*3/uL (0.00-0.03); Imm Gran Pct Auto 0.5 % (0.0-0.4); Lymphocytes Absolute Auto 1.6 X10*3/uL (1.2-4.9); Lymphocytes Percent Auto 36.1 % (20-40); Mean Corpuscular HGB Conc 31.8 g/dl (31.0-35.0); Mean Corpuscular Hemoglobin 29.8 pg (27.0-33.0); Mean Corpuscular Volume 93.8 fL (80.0-98.0); Mean Platelet Volume 9.5 fL (9.4-12.3); Monocytes Absolute Auto 0.5 X10*3/uL (0.1-1.2); Monocytes Percent Auto 11.4 % (2-11); Neutrophils Absolute Auto 2.2 x10*3/uL (2.0-8.3); Neutrophils Percent Auto 49.7 % (45-73); Platelet Count 225 X10*3/uL (160-400); Red Blood Count 4.39 X10*6/uL (4.20-5.50); Red Cell Distribution Width 13.5 % (11.0-16.0); White Blood Count 4.4 X10*3/uL (4.8-10.8)
[2022-12-14 10:00] LABS: Valproate 67.4 mcg/mL (50.0-100.0)
[2022-12-14] MEDS: Divalproex Sodium 250 MG TABLET.DR PO ×2 (10:33→14:03)
[2022-12-14] MEDS: ARIPiprazole 15 MG TABLET PO (10:33)
[2022-12-14] MEDS: Thiamine HCL 100 MG TABLET PO (10:34)
[2022-12-14] MEDS: amLODIPine Besylate 10 MG TABLET PO (10:36)
[2022-12-14 10:46] LABS: Ammonia 20 umol/L (13-55)
[2022-12-14] MEDS: Nicotine Polacrilex Lozenge 4 MG LOZENGE BUCCAL (14:03)
[2022-12-14] MEDS: Divalproex Sodium 250 MG TABLET.DR 750 MG PO (21:40)
[2022-12-14] MEDS: OLANZapine ODT 10 MG TAB.RAPDIS TRANSLINGU (21:41)
[2022-12-14] MEDS: Lactulose 20 GM/30 ML SOLUTION 15 GM PO (21:41)
[2022-12-14 22:00] VITALS: BP 112/77; PULSE 79; RESP 18; TEMP 36.6; O2SAT 100
[2022-12-15] MEDS: clonazePAM 1 MG TABLET PO ×2 (01:02→21:04)
[2022-12-15] MEDS: cloNIDine HCL 0.1 MG TABLET PO ×3 (01:02→21:04)
[2022-12-15 08:17] VITALS: BP 114/77; PULSE 75; RESP 18; TEMP 36.4; O2SAT 98
[2022-12-15] MEDS: amLODIPine Besylate 10 MG TABLET PO (08:18)
[2022-12-15] MEDS: Thiamine HCL 100 MG TABLET PO (08:18)
[2022-12-15] MEDS: ARIPiprazole 15 MG TABLET PO (08:18)
[2022-12-15] MEDS: Divalproex Sodium 250 MG TABLET.DR PO ×2 (08:21→15:05)
--- NOTE | 2022-12-15 10:02 | HO.PSYCHPN ---
Subjective Subjective Date of Service: 12/15/22 Reason For Visit: Bipolar Disorder Subjective Notes: Conditional Voluntary Interim History: Reviewed in team and with Dr. Obando. Pt continues to present with some rapid speech and tangential thought process. Patient reports she would like to be discharged on Tuesday. Patient stated, I feel like my mood is stabilized. I know there isn't a pill to fix my trauma so I'll need a good therapist . Patient reports she would like to attend [facility] [place]. Patient states she plans on obtaining an ADHD academic coach to help me with my everyday tasks . Medication Compliance: Yes Side effects from medications: No Attending Groups: Intermittent Review of Systems Review of Systems Unremarkable Constitutional: Reports as per HPI Eyes: Reports as per HPI Reports as per HPI Cardiovascular: Reports as per HPI Respiratory: Reports as per HPI Gastrointestinal: Reports as per HPI Genitourinary: Reports as per HPI Musculoskeletal: Reports as per HPI Skin/Breast: Reports as per HPI Reports as per HPI Psychiatric: Reports as per HPI Endocrine: Reports as per HPI Hematologic/Lymphatic: Reports as per HPI Allergic/Immunologic: Reports as per HPI Mental Status Exam Mental Status Exam Narrative: Pt is alert and oriented; behavior is cooperative, friendly and calm; patient is not in distress; dressed in casual attire; mood is described as anxious ; eye contact appropriate; Speech is rapid, volume and prosody are normal, not pressured; no psychomotor agitation/retardation present; thought process is organized; Thought content is tangential; otherwise pertinent to relevant topics and without any delusional content, paranoid ideations or grandiosity; denies any SI/HI. There is no evidence of perceptual disturbance. Patients insight and judgment are improving. Diagnostics Vital Signs (24Hr): Vital Signs - 24 hr 12/14/22 22:00 12/15/22 08:17 Temperature 97.8 F 97.5 F Pulse Rate 79 75 Respiratory Rate 18 18 Blood Pressure 112/77 114/77 Pulse Oximetry 100 98 Oxygen Delivery Method Room Air Room Air BMI result Body Mass Index 21.9 Labs 12/14/22 09:24 11/23/22 13:00 Labs: Laboratory Results - last 48 hr 12/13/22 12/14/22 12/14/22 10:31 09:24 09:25 WBC 4.4 L RBC 4.39 Hgb 13.1 Hct 41.2 MCV 93.8 MCH 29.8 MCHC 31.8 RDW 13.5 Plt Count 225 MPV 9.5 Immature Gran % (Auto) 0.5 H Neut % (Auto) 49.7 Lymph % (Auto) 36.1 Gonzales % (Auto) 11.4 H Eos % (Auto) 1.8 Baso % (Auto) 0.5 Lymph # (Auto) 1.6 Gonzales # (Auto) 0.5 Eos # (Auto) 0.1 Baso # (Auto) 0.0 Abs Immat Gran (auto) 0.02 Absolute Neuts (auto) 2.2 Absolute Nucleated RBC 0.000 Nucleated RBC % (auto) 0.0 Ammonia 26 Valproic Acid 67.4 12/14/22 10:30 WBC RBC Hgb Hct MCV MCH MCHC RDW Plt Count MPV Immature Gran % (Auto) Neut % (Auto) Lymph % (Auto) Gonzales % (Auto) Eos % (Auto) Baso % (Auto) Lymph # (Auto) Gonzales # (Auto) Eos # (Auto) Baso # (Auto) Abs Immat Gran (auto) Absolute Neuts (auto) Absolute Nucleated RBC Nucleated RBC % (auto) Ammonia 20 Valproic Acid Medications Medications Current Medications Acetaminophen (Acetaminophen 325 Mg Tablet) 650 mg PO Q6H PRN PRN Reason: Headache/Pain Mild Scale (1-3) Last Admin: 12/04/22 19:38 Dose: 650 mg Al Hydroxide/Mg Hydroxide (Magnesium Hydrox/Alum Hydrox 30 Ml Oral.Susp) 30 ml PO Q6H PRN PRN Reason: Heartburn/Nausea Last Admin: 12/11/22 09:43 Dose: 30 ml Amlodipine Besylate (Amlodipine Besylate 10 Mg Tablet) 10 mg PO DAILY JAKE; Protocol Last Admin: 12/15/22 08:18 Dose: 10 mg Aripiprazole (Aripiprazole 15 Mg Tablet) 15 mg PO DAILY JAKE Last Admin: 12/15/22 08:18 Dose: 15 mg Clonazepam (Clonazepam 1 Mg Tablet) 1 mg PO BEDTIME JAKE Last Admin: 12/14/22 21:40 Dose: 1 mg Clonazepam (Clonazepam 1 Mg Tablet) 1 mg PO BEDTIME PRN PRN Reason: Insomnia Last Admin: 12/15/22 01:02 Dose: 1 mg Clonidine HCl (Clonidine Hcl 0.1 Mg Tablet) 0.1 mg PO TID PRN; Protocol PRN Reason: Anxiety Last Admin: 12/15/22 01:02 Dose: 0.1 mg Clonidine HCl (Clonidine Hcl 0.1 Mg Tablet) 0.1 mg PO BEDTIME JAKE; Protocol Last Admin: 12/14/22 21:40 Dose: 0.1 mg Divalproex Sodium (Divalproex Sodium 250 Mg Tablet.Dr) 250 mg PO BID@0830,[facility] Last Admin: 12/15/22 08:21 Dose: 250 mg Divalproex Sodium (Divalproex Sodium 250 Mg Tablet.Dr) 750 mg PO BEDTIME JAKE Last Admin: 12/14/22 21:40 Dose: 750 mg Lactulose (Lactulose 20 Gm/30 Ml Solution) 15 gm PO BEDTIME JAKE Last Admin: 12/14/22 21:41 Dose: 15 gm Magnesium Hydroxide (Milk Of Magnesia 30 Ml Oral.Susp) 30 ml PO DAILY PRN PRN Reason: Constipation Nicotine Polacrilex (Nicotine Polacrilex Lozenge 4 Mg Lozenge) 4 mg BUCCAL Q2H PRN PRN Reason: Nicotine Cravings Last Admin: 12/14/22 14:03 Dose: 4 mg Olanzapine (Olanzapine 5 Mg Tablet) 5 mg PO Q4H PRN PRN Reason: Psychosis Last Admin: 12/13/22 22:54 Dose: 5 mg Olanzapine (Olanzapine Odt 10 Mg Tab.Rapdis) 10 mg TRANSLINGU BEDTIME JAKE Last Admin: 12/14/22 21:41 Dose: 10 mg Thiamine HCl (Thiamine Hcl 100 Mg Tablet) 100 mg PO DAILY [facility] Last Admin: 12/15/22 08:18 Dose: 100 mg Allergies Allergies Allergy/AdvReac Type Severity Reaction Status Date / Time bupropion [From Wellbutrin] Allergy Unknown Verified 11/15/22 23:35 Assessment & Plan Assessment & Plan (1) Severe manic bipolar 1 disorder with psychotic behavior: Status: Acute Code(s): F31.2 - Bipolar disorder, current episode manic severe with psychotic features (2) History of alcohol use disorder: Status: Acute Code(s): Z87.898 - Personal history of other specified conditions Plan Patient is a 42 year old female with hx of bipolar d/o who self presented to [facility] ER after calling 911 and reporting she was in crisis . When arrived to ER, pt struggled to engage with staff and presented with mumbled speech. Collateral was obtained from and sister. Plan: CV 15 minute checks. Obtain collateral 11/17: Patient continues to have circumstantial thought content and paranoid delusions. Patient reports she want to live but knows if I have medications then I'll take them all . Patient reports she feels safe on the unit. Retracted 3 day. Will increase lithium and vraylar doses. Patient aware and is in agreement. 11/18: Dr. Obando and T/W met with patient and sister today. Pt continues with racing thoughts and circumstantial thought content. Denies suicidal ideation. Shelburn to be increased to 600mg PO BID; patient aware. CIWA D/C'd d/t scoring low and no withdrawal symptoms. picking table worker to obtain records from [facility] with patients consent. 11/19: Patient reports difficulty sleeping. Continues with rapid speech, racing thoughts and circumstantial thought content. Signed 3 day last night, Patient reports she will retract on Tuesday if I don't feel better . Will add Seroquel at bedtime for sleep. seroquel added for insomnia monitor bp watch for s/e confusion with amlodipine lithium monitor creat watch for edema 11/20: No changes to current treatment regimen as Seroquel just added and patient declining any other changes 11/21: no changes- encourage current meds 11/22: Patient presents worsening in symptoms since Tuesday. Increased disorganization and paranoia; patient reports she has not slept. Ordered Ativan 2mg PO once, pt slept for 2.5 hours then woke up; Was then given Seroquel 50mg PO once; waiting on results. Patient retracted 3 day. Labs ordered, lithium level 0.83. Potassium 3.1; ordered hospitalist consult. UA pending. 11/23 pt appears delirious- if related to alcohol withdrawal, delirium tremens often seen> 96 hrs after last drink. Otherwise wondering if lithium. will hold lithium. give ativan 2mg and schedule ativan 2mg po qhs. d/c ambien. May need much higher doses if in DTs. 11/24: Patient continues disorganized, however presents with better insight. States she knows she is being delusional and not making sense . She was able to vocalize medications that have helped her in the past. D/C ativan; possibly making her confused. Started on risperdal d/t patient reporting she had never tried. Agreed to trial. Risks/benefits discussed. Starting Depakote to assist in decreasing dannielle. T/W spoke to sister (Constanza); gave her update on patient's treatment plan. Sister expressed gratitude towards staff/communication. 11/25: Patient reports feeling better than yesterday. Continues to present disorganized; singing at times. Is able to have a logical conversation at times. Was given a one time dose of Haldol 5mg PO; pt continues to report she is not sleeping at night. Waiting on collateral from [facility]. 11/26: Pt presents much approved today. Presents calm,with slower speech, not as accelerated. Pt stated, I feel better today; I slept . Continues to have disorganized thought process but is able to have logical conversations in-between the disorganization. Pt stated, my thoughts are very disorganized . Was able to attend meditation group. Continue with current tx plan. 11/27: more organized. still not sleeping. agreeable to increase VPA to 1000 mg daily and to reschedule all to HS. 11/28: slept about 3-4 hours last night. bizarrely repeatedly lowering herself to the floor in the past 24 H: i think i'm gonna fall. continue current mgmt for today. 11/29: slept 5 hours overnight, more fluid and spontaneous today, more organized. DC risperidone per pt request, start abilify. concern of weight gain. continue VPA 1000 mg QHS. 11/30: Pt reports mood is a lot better ; reports sleeping well last night but continues to feel tired. Would like a therapist who can focus on her trauma. Continue current tx plan. 12/01: 1:1 discontinued, placed on 5 minute checks. Pt reports feeling better and not paranoid . Continues with tangential thought content. Continues to not sleep well at night. Increased ammonia level;Will give lactulose, hold Depakote and increase Abilify to 10mg PO daily. Patient notified. 12/02: Pt continues to report not sleeping well. Ammonia level today is 26. Patient notified. Lactulose will be decreased to once a day. Will restart Depakote 250mg PO BID and continue to monitor. Patient placed back on 15 minute safety checks. 12/03: Continues not sleeping well. Patient reports she does not feel as clear as yesterday . Tangential during 1:1. Patient focused on past trauma. Retracted 3 day. Started Klonopin 1mg PO bedtime. 12/04: Slept somewhat better per report. Consider increasing depakote but would need to recheck ammonia 12/05: recheck ammonia level. discontinue trazodone due to possible akathisia. Add PRN klonopin 12/06: Patient in one-to-one was less labile more organized remains quite disorganized in the milieu. Ammonia level now within normal limits on lactulose recheck ammonia in morning gradually increase Depakote as tolerated to therapeutic levels may need increase in Abilify for manic doses has significant insomnia trazodone discontinued 12/07: Patient with variable periods of intense lability pressured speech disorganization and at times paranoia and fearfulness. Seeing meaning in different things feelings of derealization depersonalization fear in paranoia. Increase Depakote olanzapine p.r.n. history of past stabilizations on olanzapine and Depakote but did gain a significant amount of weight 12/08: Abilify 15 mg daily Seroquel 100 at bedtime increase Depakote check level and ammonia level in the morning encourage treatment compliance needs much reassurance and education 12/09: Increase Depakote to 1000 mg a day check ammonia level in the morning patient does have a history of being on Depakote and lithium with reported relatively good affect history of 1 prior manic psychotic episode greater than 15 years ago spoke with patient agreed to change Seroquel to olanzapine at bedtime hopefully will help retrain sleep continue Abilify 15 mg for now 12/11: Continue current plan. 12/12: Continue current treatment plan. 12/13: Pt presents with rapid speech, tangential thought process. States she is having a difficult time focusing. Pt reports she does not want to be labeled as bipolar because of the stigma . pt is trying to not take naps throughout the day to improve sleep at night. Plans on visiting with this afternoon. Ammonia level 26 today. 12/14: Patient stated, I can feel the Depakote stabilizing my mood . Patient reports she plans on trying to make a daily schedule for herself to keep her organized. Valporic acid level 67.4. Will increase Depakote to daily dose of 1250mg. 12/15: Patient feels her mood is stabilized . Would like to be discharged Tuesday; plans on attending PHP and following up without patient providers. Pt continues to have some rapid speech, but overall improving. Continue with current tx plan. Patient educated on: diagnosis, medication risk/benefits, substance abuse and therapeutic strategies Informed Consent: understands Reason for continued inpatient stay Substantial Risk for: med/psych decompensation Time Spent With Patient Time: Total time managing care of this patient today _30___ minutes.
[2022-12-15] MEDS: Nicotine Polacrilex Lozenge 4 MG LOZENGE BUCCAL (11:56)
[2022-12-15 21:00] VITALS: BP 118/78; PULSE 80; RESP 18; TEMP 36.7; O2SAT 100
[2022-12-15] MEDS: OLANZapine ODT 10 MG TAB.RAPDIS TRANSLINGU (21:03)
[2022-12-15] MEDS: Lactulose 20 GM/30 ML SOLUTION 15 GM PO (21:03)
[2022-12-15] MEDS: Divalproex Sodium 250 MG TABLET.DR 750 MG PO (21:05)
[2022-12-16] MEDS: Acetaminophen 325 MG TABLET 650 MG PO (04:05)
[2022-12-16 08:58] LABS: Ammonia 27 umol/L (13-55)
[2022-12-16 09:00] VITALS: BP 120/81; PULSE 104; RESP 16; TEMP 36.7; O2SAT 98
[2022-12-16 09:14] LABS: Valproate 78.4 mcg/mL (50.0-100.0)
[2022-12-16 09:18] LABS: Alanine Aminotransferase 18 U/L (0-31); Albumin Level 3.8 g/dL (3.5-5.0); Alkaline Phosphatase 49 U/L (39-117); Anion Gap 14 (12-20); Aspartate Amino Transferase 15 U/L (5-31); Bilirubin Total 0.4 mg/dL (0.0-1.0); Blood Urea Nitrogen 15 mg/dL (9-16); Calcium 8.6 mg/dL (8.4-10.2); Carbon Dioxide 21 mmol/L (22-29); Chloride 110 mmol/L (96-108); Creatinine Clr Calc Pharmacy 74.2; Estimated Glomerular Filt Rate > 60; Glucose Fasting 116 mg/dL (60-99); Sodium 141 mmol/L (135-145); Total Protein 5.9 g/dL (6.5-8.0)
[2022-12-16] MEDS: Thiamine HCL 100 MG TABLET PO (09:40)
[2022-12-16] MEDS: amLODIPine Besylate 10 MG TABLET PO (09:40)
[2022-12-16] MEDS: ARIPiprazole 15 MG TABLET PO (09:40)
[2022-12-16] MEDS: Divalproex Sodium 250 MG TABLET.DR PO ×2 (09:41→14:09)
[2022-12-16] MEDS: Magnesium Hydrox/Alum Hydrox 30 ML ORAL.SUSP PO (10:11)
[2022-12-16] MEDS: cloNIDine HCL 0.1 MG TABLET PO ×2 (10:13→20:52)
--- NOTE | 2022-12-16 10:15 | P.PNPSI_ITS ---
Subjective Subjective Date of Service: 12/16/22 Reason For Visit: Bipolar Disorder Subjective Notes: Conditional Voluntary Interim History: Reviewed in team and with Dr. Obando. Pt continues to present with some rapid speech and tangential thought process. Patient reports increased anxiety d/t thoughts of going home and not having structure. Asked for discharged to be pushed til Tuesday morning before her PHP virtual intake at 12pm Tuesday. Plans on developing schedule for day to day schedule. Reports waking up throughout the night. Medication Compliance: Yes Side effects from medications: No Attending Groups: Yes Review of Systems Review of Systems Unremarkable Constitutional: Reports as per HPI Eyes: Reports as per HPI Reports as per HPI Cardiovascular: Reports as per HPI Respiratory: Reports as per HPI Gastrointestinal: Reports as per HPI Genitourinary: Reports as per HPI Musculoskeletal: Reports as per HPI Skin/Breast: Reports as per HPI Reports as per HPI Psychiatric: Reports as per HPI Endocrine: Reports as per HPI Hematologic/Lymphatic: Reports as per HPI Allergic/Immunologic: Reports as per HPI Mental Status Exam Mental Status Exam Narrative: Pt is alert and oriented; behavior is cooperative, friendly and calm; patient is not in distress; dressed in casual attire; mood is described as anxious ; eye contact appropriate; Speech is rapid, volume and prosody are normal, not pressured; no psychomotor agitation/retardation present; thought process is organized; Thought content is tangential; otherwise pertinent to relevant topics and without any delusional content, paranoid ideations or grandiosity; denies any SI/HI. There is no evidence of perceptual disturbance. Patients insight and judgment are improving. Diagnostics Vital Signs (24Hr): Vital Signs - 24 hr 12/15/22 21:00 Temperature 98.0 F Pulse Rate 80 Respiratory Rate 18 Blood Pressure 118/78 Pulse Oximetry 100 Oxygen Delivery Method Room Air BMI result Body Mass Index 21.9 Labs 12/14/22 09:24 12/16/22 08:35 Labs: Laboratory Results - last 48 hr 12/14/22 12/16/22 12/16/22 10:30 08:35 08:35 Sodium 141 Potassium 4.0 Chloride 110 H Carbon Dioxide 21 L Anion Gap 14 BUN 15 Creatinine 0.73 Estim Creat Clear Calc 74.2 Estimated GFR > 60 Fasting Glucose 116 H Calcium 8.6 D Total Bilirubin 0.4 AST 15 ALT 18 Alkaline Phosphatase 49 Ammonia 20 27 Total Protein 5.9 L Albumin 3.8 Valproic Acid 07/27/23 08:35 Sodium Potassium Chloride Carbon Dioxide Anion Gap BUN Creatinine Estim Creat Clear Calc Estimated GFR Fasting Glucose Calcium Total Bilirubin AST ALT Alkaline Phosphatase Ammonia Total Protein Albumin Valproic Acid 78.4 Medications Medications Current Medications Acetaminophen (Acetaminophen 325 Mg Tablet) 650 mg PO Q6H PRN PRN Reason: Headache/Pain Mild Scale (1-3) Last Admin: 12/16/22 04:05 Dose: 650 mg Al Hydroxide/Mg Hydroxide (Magnesium Hydrox/Alum Hydrox 30 Ml Oral.Susp) 30 ml PO Q6H PRN PRN Reason: Heartburn/Nausea Last Admin: 12/16/22 10:11 Dose: 30 ml Amlodipine Besylate (Amlodipine Besylate 10 Mg Tablet) 10 mg PO DAILY JAKE; Protocol Last Admin: 12/16/22 09:40 Dose: 10 mg Aripiprazole (Aripiprazole 15 Mg Tablet) 15 mg PO DAILY JAKE Last Admin: 12/16/22 09:40 Dose: 15 mg Clonazepam (Clonazepam 1 Mg Tablet) 1 mg PO BEDTIME JAKE Last Admin: 12/15/22 21:04 Dose: 1 mg Clonazepam (Clonazepam 1 Mg Tablet) 1 mg PO BEDTIME PRN PRN Reason: Insomnia Last Admin: 12/15/22 01:02 Dose: 1 mg Clonidine HCl (Clonidine Hcl 0.1 Mg Tablet) 0.1 mg PO TID PRN; Protocol PRN Reason: Anxiety Last Admin: 12/16/22 10:13 Dose: 0.1 mg Clonidine HCl (Clonidine Hcl 0.1 Mg Tablet) 0.1 mg PO BEDTIME JAKE; Protocol Last Admin: 12/15/22 21:04 Dose: 0.1 mg Divalproex Sodium (Divalproex Sodium 250 Mg Tablet.Dr) 250 mg PO BID@0830,1430 JAKE Last Admin: 12/16/22 09:41 Dose: 250 mg Divalproex Sodium (Divalproex Sodium 250 Mg Tablet.Dr) 750 mg PO BEDTIME JAKE Last Admin: 12/15/22 21:05 Dose: 750 mg Lactulose (Lactulose 20 Gm/30 Ml Solution) 15 gm PO BEDTIME JAKE Last Admin: 12/15/22 21:03 Dose: 15 gm Magnesium Hydroxide (Milk Of Magnesia 30 Ml Oral.Susp) 30 ml PO DAILY PRN PRN Reason: Constipation Nicotine Polacrilex (Nicotine Polacrilex Lozenge 4 Mg Lozenge) 4 mg BUCCAL Q2H PRN PRN Reason: Nicotine Cravings Last Admin: 12/15/22 11:56 Dose: 4 mg Olanzapine (Olanzapine 5 Mg Tablet) 5 mg PO Q4H PRN PRN Reason: Psychosis Last Admin: 12/13/22 22:54 Dose: 5 mg Olanzapine (Olanzapine Odt 10 Mg Tab.Rapdis) 10 mg TRANSLINGU BEDTIME [facility] Last Admin: 12/15/22 21:03 Dose: 10 mg Thiamine HCl (Thiamine Hcl 100 Mg Tablet) 100 mg PO DAILY JAKE Last Admin: 12/16/22 09:40 Dose: 100 mg Allergies Allergies Allergy/AdvReac Type Severity Reaction Status Date / Time bupropion [From Wellbutrin] Allergy Unknown Verified 11/15/22 23:35 Assessment & Plan Assessment & Plan (1) Severe manic bipolar 1 disorder with psychotic behavior: Status: Acute Code(s): F31.2 - Bipolar disorder, current episode manic severe with psychotic features (2) History of alcohol use disorder: Status: Acute Code(s): Z87.898 - Personal history of other specified conditions Plan Patient is a 42 year old female with hx of bipolar d/o who self presented to [facility] ER after calling 911 and reporting she was in crisis . When arrived to ER, pt struggled to engage with staff and presented with mumbled speech. Collateral was obtained from and sister. Plan: CV 15 minute checks. Obtain collateral 11/17: Patient continues to have circumstantial thought content and paranoid delusions. Patient reports she want to live but knows if I have medications then I'll take them all . Patient reports she feels safe on the unit. Retracted 3 day. Will increase lithium and vraylar doses. Patient aware and is in agreement. 11/18: Dr. Obando and T/W met with patient and sister today. Pt continues with racing thoughts and circumstantial thought content. Denies suicidal ideation. [place] to be increased to 600mg PO BID; patient aware. SARAWA D/C'd d/t scoring low and no withdrawal symptoms. rescue worker to obtain records from [facility] and [facility] with patients consent. 11/19: Patient reports difficulty sleeping. Continues with rapid speech, racing thoughts and circumstantial thought content. Signed 3 day last night, Patient reports she will retract on Tuesday if I don't feel better . Will add Seroquel at bedtime for sleep. seroquel added for insomnia monitor bp watch for s/e confusion with amlodipine lithium monitor creat watch for edema 11/20: No changes to current treatment regimen as Seroquel just added and patient declining any other changes 11/21: no changes- encourage current meds 11/22: Patient presents worsening in symptoms since Tuesday. Increased disorganization and paranoia; patient reports she has not slept. Ordered Ativan 2mg PO once, pt slept for 2.5 hours then woke up; Was then given Seroquel 50mg PO once; waiting on results. Patient retracted 3 day. Labs ordered, lithium level 0.83. Potassium 3.1; ordered hospitalist consult. UA pending. 11/23 pt appears delirious- if related to alcohol withdrawal, delirium tremens often seen> 96 hrs after last drink. Otherwise wondering if lithium. will hold lithium. give ativan 2mg and schedule ativan 2mg po qhs. d/c ambien. May need much higher doses if in DTs. 11/24: Patient continues disorganized, however presents with better insight. States she knows she is being delusional and not making sense . She was able to vocalize medications that have helped her in the past. D/C ativan; possibly making her confused. Started on risperdal d/t patient reporting she had never tried. Agreed to trial. Risks/benefits discussed. Starting Depakote to assist in decreasing dannielle. T/W spoke to sister (Constanza); gave her update on patient's treatment plan. Sister expressed gratitude towards staff/communication. 11/25: Patient reports feeling better than yesterday. Continues to present disorganized; singing at times. Is able to have a logical conversation at times. Was given a one time dose of Haldol 5mg PO; pt continues to report she is not sleeping at night. Waiting on collateral from [facility] and [facility]. 11/26: Pt presents much approved today. Presents calm,with slower speech, not as accelerated. Pt stated, I feel better today; I slept . Continues to have disorganized thought process but is able to have logical conversations in- between the disorganization. Pt stated, my thoughts are very disorganized . Was able to attend meditation group. Continue with current tx plan. 11/27: more organized. still not sleeping. agreeable to increase VPA to 1000 mg daily and to reschedule all to HS. 11/28: slept about 3-4 hours last night. bizarrely repeatedly lowering herself to the floor in the past 24 H: i think i'm gonna fall. continue current mgmt for today. 11/29: slept 5 hours overnight, more fluid and spontaneous today, more organized. DC risperidone per pt request, start abilify. concern of weight gain. continue VPA 1000 mg QHS. 11/30: Pt reports mood is a lot better ; reports sleeping well last night but continues to feel tired. Would like a therapist who can focus on her trauma. Continue current tx plan. 12/01: 1:1 discontinued, placed on 5 minute checks. Pt reports feeling better and not paranoid . Continues with tangential thought content. Continues to not sleep well at night. Increased ammonia level;Will give lactulose, hold Depakote and increase Abilify to 10mg PO daily. Patient notified. 12/02: Pt continues to report not sleeping well. Ammonia level today is 26. Patient notified. Lactulose will be decreased to once a day. Will restart Depakote 250mg PO BID and continue to monitor. Patient placed back on 15 minute safety checks. 12/03: Continues not sleeping well. Patient reports she does not feel as clear as yesterday . Tangential during 1:1. Patient focused on past trauma. Retracted 3 day. Started Klonopin 1mg PO bedtime. 12/04: Slept somewhat better per report. Consider increasing depakote but would need to recheck ammonia 12/05: recheck ammonia level. discontinue trazodone due to possible akathisia. Add PRN klonopin 12/06: Patient in one-to-one was less labile more organized remains quite disorganized in the milieu. Ammonia level now within normal limits on lactulose recheck ammonia in morning gradually increase Depakote as tolerated to therapeutic levels may need increase in Abilify for manic doses has significant insomnia trazodone discontinued 12/07: Patient with variable periods of intense lability pressured speech disorganization and at times paranoia and fearfulness. Seeing meaning in different things feelings of derealization depersonalization fear in paranoia. Increase Depakote olanzapine p.r.n. history of past stabilizations on olanzapine and Depakote but did gain a significant amount of weight 12/08: Abilify 15 mg daily Seroquel 100 at bedtime increase Depakote check level and ammonia level in the morning encourage treatment compliance needs much reas surance and education 12/09: Increase Depakote to 1000 mg a day check ammonia level in the morning stephanie plummer does have a history of being on Depakote and lithium with reported relatively good affect history of 1 prior manic psychotic episode greater than 15 years ago spoke with patient agreed to change Seroquel to olanzapine at bedtime hopefully will help retrain sleep continue Abilify 15 mg for now 12/11: Continue current plan. 12/12: Continue current treatment plan. 12/13: Pt presents with rapid speech, tangential thought process. States she is having a difficult time focusing. Pt reports she does not want to be labeled as bipolar because of the stigma . pt is trying to not take naps throughout the day to improve sleep at night. Plans on visiting with this afternoon. Ammonia level 26 today. 12/14: Patient stated, I can feel the Depakote stabilizing my mood . Patient reports she plans on trying to make a daily schedule for herself to keep her organized. Valporic acid level 67.4. Will increase Depakote to daily dose of 1250mg. 12/15: Patient feels her mood is stabilized . Would like to be discharged Tuesday; plans on attending PHP and following up without patient providers. Pt continues to have some rapid speech, but overall improving. Continue with current tx plan. 12/16: Patient reports increased anxiety d/t thoughts of going home and not having structure.Presents with rapid and pressured speech. Asked for discharged to be pushed til Tuesday morning before her PHP virtual intake. Plans on developing schedule for day to day schedule. Reports waking up throughout the night. Continue with current treatment plan. Patient educated on: diagnosis, medication risk/benefits, substance abuse and therapeutic strategies Informed Consent: understands Reason for continued inpatient stay Substantial Risk for: med/psych decompensation Time Spent With Patient Time: Total time managing care of this patient today _30___ minutes.
[2022-12-16 13:28] VITALS: BMI 22.2
[2022-12-16] MEDS: Nicotine Polacrilex Lozenge 4 MG LOZENGE BUCCAL (14:08)
[2022-12-16 20:10] VITALS: BP 111/79; PULSE 76; RESP 18; TEMP 36.6; O2SAT 100
[2022-12-16] MEDS: clonazePAM 1 MG TABLET PO (20:52)
[2022-12-16] MEDS: OLANZapine ODT 10 MG TAB.RAPDIS TRANSLINGU (20:52)
[2022-12-16] MEDS: Divalproex Sodium 250 MG TABLET.DR 750 MG PO (20:52)
[2022-12-17] MEDS: OLANZapine 5 MG TABLET PO (00:52)
[2022-12-17 09:00] VITALS: BP 124/76; PULSE 72; RESP 18; TEMP 36.7; O2SAT 100
[2022-12-17] MEDS: amLODIPine Besylate 10 MG TABLET PO (09:30)
[2022-12-17] MEDS: Thiamine HCL 100 MG TABLET PO (09:30)
[2022-12-17] MEDS: Divalproex Sodium 250 MG TABLET.DR PO ×2 (09:30→14:18)
[2022-12-17] MEDS: ARIPiprazole 15 MG TABLET PO (09:30)
--- NOTE | 2022-12-17 09:52 | HO.PSYCHPN ---
Subjective Subjective Date of Service: 12/17/22 Reason For Visit: Bipolar Disorder Subjective Notes: Conditional Voluntary Interim History: Reviewed in team and with Dr. Obando. Pt presents organized and focused on discharge. Patient reports continued anxiety about going home. States she is trying to get organized to call various therapists and interview them . She reports sleep improving. Valporic acid/liver panel/ammonia labs ordered for Tuesday. Plan for discharge Tuesday as long as patient continues to improve throughout weekend. Medication Compliance: Yes Side effects from medications: No Attending Groups: Yes Review of Systems Review of Systems Unremarkable Constitutional: Reports as per HPI Eyes: Reports as per HPI Reports as per HPI Cardiovascular: Reports as per HPI Respiratory: Reports as per HPI Gastrointestinal: Reports as per HPI Genitourinary: Reports as per HPI Musculoskeletal: Reports as per HPI Skin/Breast: Reports as per HPI Reports as per HPI Psychiatric: Reports as per HPI Endocrine: Reports as per HPI Hematologic/Lymphatic: Reports as per HPI Allergic/Immunologic: Reports as per HPI Mental Status Exam Mental Status Exam Narrative: Pt is alert and oriented; behavior is cooperative, friendly and calm; patient is not in distress; dressed in casual attire; mood is described as good ; eye contact appropriate; Speech is normal rate, volume and prosody are normal, not pressured; no psychomotor agitation/retardation present; thought process is organized; Thought content is on discharge; otherwise pertinent to relevant topics and without any delusional content, paranoid ideations or grandiosity; denies any SI/HI. There is no evidence of perceptual disturbance. Patients insight and judgment are fair. Diagnostics Vital Signs (24Hr): Vital Signs - 24 hr 12/16/22 20:10 Temperature 97.8 F Pulse Rate 76 Respiratory Rate 18 Blood Pressure 111/79 Pulse Oximetry 100 Oxygen Delivery Method Room Air BMI result Body Mass Index 22.2 Labs 12/14/22 09:24 12/16/22 08:35 Labs: Laboratory Results - last 48 hr 12/16/22 12/16/22 12/16/22 08:35 08:35 08:35 Sodium 141 Potassium 4.0 Chloride 110 H Carbon Dioxide 21 L Anion Gap 14 BUN 15 Creatinine 0.73 Estim Creat Clear Calc 74.2 Estimated GFR > 60 Fasting Glucose 116 H Calcium 8.6 D Total Bilirubin 0.4 AST 15 ALT 18 Alkaline Phosphatase 49 Ammonia 27 Total Protein 5.9 L Albumin 3.8 Valproic Acid 78.4 Medications Medications Current Medications Acetaminophen (Acetaminophen 325 Mg Tablet) 650 mg PO Q6H PRN PRN Reason: Headache/Pain Mild Scale (1-3) Last Admin: 12/16/22 04:05 Dose: 650 mg Al Hydroxide/Mg Hydroxide (Magnesium Hydrox/Alum Hydrox 30 Ml Oral.Susp) 30 ml PO Q6H PRN PRN Reason: Heartburn/Nausea Last Admin: 12/16/22 10:11 Dose: 30 ml Amlodipine Besylate (Amlodipine Besylate 10 Mg Tablet) 10 mg PO DAILY JAKE; Protocol Last Admin: 12/17/22 09:30 Dose: 10 mg Aripiprazole (Aripiprazole 15 Mg Tablet) 15 mg PO DAILY JAKE Last Admin: 12/17/22 09:30 Dose: 15 mg Clonazepam (Clonazepam 1 Mg Tablet) 1 mg PO BEDTIME JAKE Last Admin: 12/16/22 20:52 Dose: 1 mg Clonazepam (Clonazepam 1 Mg Tablet) 1 mg PO BEDTIME PRN PRN Reason: Insomnia Last Admin: 12/15/22 01:02 Dose: 1 mg Clonidine HCl (Clonidine Hcl 0.1 Mg Tablet) 0.1 mg PO TID PRN; Protocol PRN Reason: Anxiety Last Admin: 12/16/22 10:13 Dose: 0.1 mg Clonidine HCl (Clonidine Hcl 0.1 Mg Tablet) 0.1 mg PO BEDTIME JAKE; Protocol Last Admin: 12/16/22 20:52 Dose: 0.1 mg Divalproex Sodium (Divalproex Sodium 250 Mg Tablet.) 250 mg PO BID@0830,1430 JAKE Last Admin: 12/17/22 09:30 Dose: 250 mg Divalproex Sodium (Divalproex Sodium 250 Mg Tablet.) 750 mg PO BEDTIME JAKE Last Admin: 12/16/22 20:52 Dose: 750 mg Lactulose (Lactulose 20 Gm/30 Ml Solution) 15 gm PO BEDTIME JAKE Last Admin: 12/16/22 20:54 Dose: Not Given Magnesium Hydroxide (Milk Of Magnesia 30 Ml Oral.Susp) 30 ml PO DAILY PRN PRN Reason: Constipation Nicotine Polacrilex (Nicotine Polacrilex Lozenge 4 Mg Lozenge) 4 mg BUCCAL Q2H PRN PRN Reason: Nicotine Cravings Last Admin: 12/16/22 14:08 Dose: 4 mg Olanzapine (Olanzapine 5 Mg Tablet) 5 mg PO Q4H PRN PRN Reason: Psychosis Last Admin: 12/17/22 00:52 Dose: 5 mg Olanzapine (Olanzapine Odt 10 Mg Tab.Rapdis) 10 mg TRANSLINGU BEDTIME [facility] Last Admin: 12/16/22 20:52 Dose: 10 mg Thiamine HCl (Thiamine Hcl 100 Mg Tablet) 100 mg PO DAILY JAKE Last Admin: 12/17/22 09:30 Dose: 100 mg Allergies Allergies Allergy/AdvReac Type Severity Reaction Status Date / Time bupropion [From Wellbutrin] Allergy Unknown Verified 11/15/22 23:35 Assessment & Plan Assessment & Plan (1) Severe manic bipolar 1 disorder with psychotic behavior: Status: Acute Code(s): F31.2 - Bipolar disorder, current episode manic severe with psychotic features (2) History of alcohol use disorder: Status: Acute Code(s): Z87.898 - Personal history of other specified conditions Plan Patient is a 42 year old female with hx of bipolar d/o who self presented to [facility] ER after calling 911 and reporting she was in crisis . When arrived to ER, pt struggled to engage with staff and presented with mumbled speech. Collateral was obtained from and sister. Plan: CV 15 minute checks. Obtain collateral 11/17: Patient continues to have circumstantial thought content and paranoid delusions. Patient reports she want to live but knows if I have medications then I'll take them all . Patient reports she feels safe on the unit. Retracted 3 day. Will increase lithium and vraylar doses. Patient aware and is in agreement. 11/18: Dr. Obando and T/W met with patient and sister today. Pt continues with racing thoughts and circumstantial thought content. Denies suicidal ideation. [place] to be increased to 600mg PO BID; patient aware. CIWA D/C'd d/t scoring low and no withdrawal symptoms. stucco worker to obtain records from [facility] with patients consent. 11/19: Patient reports difficulty sleeping. Continues with rapid speech, racing thoughts and circumstantial thought content. Signed 3 day last night, Patient reports she will retract on Tuesday if I don't feel better . Will add Seroquel at bedtime for sleep. seroquel added for insomnia monitor bp watch for s/e confusion with amlodipine lithium monitor creat watch for edema 11/20: No changes to current treatment regimen as Seroquel just added and patient declining any other changes 11/21: no changes- encourage current meds 11/22: Patient presents worsening in symptoms since Tuesday. Increased disorganization and paranoia; patient reports she has not slept. Ordered Ativan 2mg PO once, pt slept for 2.5 hours then woke up; Was then given Seroquel 50mg PO once; waiting on results. Patient retracted 3 day. Labs ordered, lithium level 0.83. Potassium 3.1; ordered hospitalist consult. UA pending. 11/23 pt appears delirious- if related to alcohol withdrawal, delirium tremens often seen> 96 hrs after last drink. Otherwise wondering if lithium. will hold lithium. give ativan 2mg and schedule ativan 2mg po qhs. d/c ambien. May need much higher doses if in DTs. 11/24: Patient continues disorganized, however presents with better insight. States she knows she is being delusional and not making sense . She was able to vocalize medications that have helped her in the past. D/C ativan; possibly making her confused. Started on risperdal d/t patient reporting she had never tried. Agreed to trial. Risks/benefits discussed. Starting Depakote to assist in decreasing dannielle. T/W spoke to sister (Constanza); gave her update on patient's treatment plan. Sister expressed gratitude towards staff/communication. 11/25: Patient reports feeling better than yesterday. Continues to present disorganized; singing at times. Is able to have a logical conversation at times. Was given a one time dose of Haldol 5mg PO; pt continues to report she is not sleeping at night. Waiting on collateral from [facility]. 11/26: Pt presents much approved today. Presents calm,with slower speech, not as accelerated. Pt stated, I feel better today; I slept . Continues to have disorganized thought process but is able to have logical conversations in-between the disorganization. Pt stated, my thoughts are very disorganized . Was able to attend meditation group. Continue with current tx plan. 11/27: more organized. still not sleeping. agreeable to increase VPA to 1000 mg daily and to reschedule all to HS. 11/28: slept about 3-4 hours last night. bizarrely repeatedly lowering herself to the floor in the past 24 H: i think i'm gonna fall. continue current mgmt for today. 11/29: slept 5 hours overnight, more fluid and spontaneous today, more organized. DC risperidone per pt request, start abilify. concern of weight gain. continue VPA 1000 mg QHS. 11/30: Pt reports mood is a lot better ; reports sleeping well last night but continues to feel tired. Would like a therapist who can focus on her trauma. Continue current tx plan. 12/01: 1:1 discontinued, placed on 5 minute checks. Pt reports feeling better and not paranoid . Continues with tangential thought content. Continues to not sleep well at night. Increased ammonia level;Will give lactulose, hold Depakote and increase Abilify to 10mg PO daily. Patient notified. 12/02: Pt continues to report not sleeping well. Ammonia level today is 26. Patient notified. Lactulose will be decreased to once a day. Will restart Depakote 250mg PO BID and continue to monitor. Patient placed back on 15 minute safety checks. 12/03: Continues not sleeping well. Patient reports she does not feel as clear as yesterday . Tangential during 1:1. Patient focused on past trauma. Retracted 3 day. Started Klonopin 1mg PO bedtime. 12/04: Slept somewhat better per report. Consider increasing depakote but would need to recheck ammonia 12/05: recheck ammonia level. discontinue trazodone due to possible akathisia. Add PRN klonopin 12/06: Patient in one-to-one was less labile more organized remains quite disorganized in the milieu. Ammonia level now within normal limits on lactulose recheck ammonia in morning gradually increase Depakote as tolerated to therapeutic levels may need increase in Abilify for manic doses has significant insomnia trazodone discontinued 12/07: Patient with variable periods of intense lability pressured speech disorganization and at times paranoia and fearfulness. Seeing meaning in different things feelings of derealization depersonalization fear in paranoia. Increase Depakote olanzapine p.r.n. history of past stabilizations on olanzapine and Depakote but did gain a significant amount of weight 12/08: Abilify 15 mg daily Seroquel 100 at bedtime increase Depakote check level and ammonia level in the morning encourage treatment compliance needs much reassurance and education 12/09: Increase Depakote to 1000 mg a day check ammonia level in the morning patient does have a history of being on Depakote and lithium with reported relatively good affect history of 1 prior manic psychotic episode greater than 15 years ago spoke with patient agreed to change Seroquel to olanzapine at bedtime hopefully will help retrain sleep continue Abilify 15 mg for now 12/11: Continue current plan. 12/12: Continue current treatment plan. 12/13: Pt presents with rapid speech, tangential thought process. States she is having a difficult time focusing. Pt reports she does not want to be labeled as bipolar because of the stigma . pt is trying to not take naps throughout the day to improve sleep at night. Plans on visiting with this afternoon. Ammonia level 26 today. 12/14: Patient stated, I can feel the Depakote stabilizing my mood . Patient reports she plans on trying to make a daily schedule for herself to keep her organized. Valporic acid level 67.4. Will increase Depakote to daily dose of 1250mg. 12/15: Patient feels her mood is stabilized . Would like to be discharged Tuesday; plans on attending PHP and following up without patient providers. Pt continues to have some rapid speech, but overall improving. Continue with current tx plan. 12/16: Patient reports increased anxiety d/t thoughts of going home and not having structure.Presents with rapid and pressured speech. Asked for discharged to be pushed til Tuesday before her PHP virtual intake. Plans on developing schedule for day to day schedule. Reports waking up throughout the night. Continue with current treatment plan. 12/17: Patient reports continued anxiety about going home. States she is trying to get organized to call various therapists and interview them . Valporic acid/liver panel/ammonia labs ordered for Tuesday. Plan for discharge Tuesday morning as long as patient continues to improve throughout weekend. Continue current tx plan. Patient educated on: diagnosis, medication risk/benefits, substance abuse and therapeutic strategies Informed Consent: understands Reason for continued inpatient stay Substantial Risk for: med/psych decompensation Time Spent With Patient Time: Total time managing care of this patient today _30___ minutes.
[2022-12-17 20:17] VITALS: BP 118/83; PULSE 76; RESP 18; TEMP 36.6; O2SAT 100
[2022-12-17] MEDS: clonazePAM 1 MG TABLET PO (20:40)
[2022-12-17] MEDS: Divalproex Sodium 250 MG TABLET.DR 750 MG PO (20:41)
[2022-12-17] MEDS: cloNIDine HCL 0.1 MG TABLET PO (20:41)
[2022-12-17] MEDS: OLANZapine ODT 10 MG TAB.RAPDIS TRANSLINGU (20:41)
[2022-12-17] MEDS: Acetaminophen 325 MG TABLET 650 MG PO (22:59)
[2022-12-18 08:58] VITALS: BP 120/78; PULSE 72; RESP 18; TEMP 36.6; O2SAT 98
[2022-12-18] MEDS: ARIPiprazole 15 MG TABLET PO (08:59)
[2022-12-18] MEDS: Thiamine HCL 100 MG TABLET PO (08:59)
[2022-12-18] MEDS: Divalproex Sodium 250 MG TABLET.DR PO ×2 (08:59→14:57)
[2022-12-18] MEDS: amLODIPine Besylate 10 MG TABLET PO (08:59)
[2022-12-18] MEDS: cloNIDine HCL 0.1 MG TABLET PO ×2 (10:33→21:51)
--- NOTE | 2022-12-18 11:18 | P.PNPSI_ITS ---
Subjective Subjective Date of Service: 12/18/22 Reason For Visit: Bipolar Disorder Subjective Notes: Conditional Voluntary Interim History: The nursing staff reported the patient had been taking her medications visible, talkative pleasant but easily distracted. Last night she slept 5 hours. On interview the patient denies new symptoms she states that she is going to be discharged on Tuesday. No new symptoms. Mental Status Exam Mental Status Exam Patient Appearance: Well Grooomed Patient Orientation: Person and Situation Level of Consciousness: Awake and Appropriate Patient Behavior: Appropriate and Cooperative Mood Description: Calm Affect Description: Constricted Ability to Follow Directions: Good Speech Pattern: Clear Hallucinations: None Delusions: Not Present Thought Process: Linear Thought Content: positive for [place] and positive for Poverty of Content Judgement: Fair Diagnostics Vital Signs (24Hr): Vital Signs - 24 hr 12/17/22 20:17 12/18/22 08:58 Temperature 97.8 F 97.9 F Pulse Rate 76 72 Respiratory Rate 18 18 Blood Pressure 118/83 120/78 Pulse Oximetry 100 98 Oxygen Delivery Method Room Air Room Air BMI result Body Mass Index 22.2 Labs 12/14/22 09:24 12/16/22 08:35 Medications Medications Current Medications Acetaminophen (Acetaminophen 325 Mg Tablet) 650 mg PO Q6H PRN PRN Reason: Headache/Pain Mild Scale (1-3) Last Admin: 12/17/22 22:59 Dose: 650 mg Al Hydroxide/Mg Hydroxide (Magnesium Hydrox/Alum Hydrox 30 Ml Oral.Susp) 30 ml PO Q6H PRN PRN Reason: Heartburn/Nausea Last Admin: 12/16/22 10:11 Dose: 30 ml Amlodipine Besylate (Amlodipine Besylate 10 Mg Tablet) 10 mg PO DAILY JAKE; Prot ocol Last Admin: 12/18/22 08:59 Dose: 10 mg Aripiprazole (Aripiprazole 15 Mg Tablet) 15 mg PO DAILY JAKE Last Admin: 12/18/22 08:59 Dose: 15 mg Clonazepam (Clonazepam 1 Mg Tablet) 1 mg PO BEDTIME JAKE Last Admin: 12/17/22 20:40 Dose: 1 mg Clonidine HCl (Clonidine Hcl 0.1 Mg Tablet) 0.1 mg PO TID PRN; Protocol PRN Reason: Anxiety Last Admin: 12/18/22 10:33 Dose: 0.1 mg Clonidine HCl (Clonidine Hcl 0.1 Mg Tablet) 0.1 mg PO BEDTIME JAKE; Protocol Last Admin: 12/17/22 20:41 Dose: 0.1 mg Divalproex Sodium (Divalproex Sodium 250 Mg Tablet.) 250 mg PO BID@0830,1430 [facility] Last Admin: 12/18/22 08:59 Dose: 250 mg Divalproex Sodium (Divalproex Sodium 250 Mg Tablet.) 750 mg PO BEDTIME JAKE Last Admin: 12/17/22 20:41 Dose: 750 mg Lactulose (Lactulose 20 Gm/30 Ml Solution) 15 gm PO BEDTIME JAKE Last Admin: 12/17/22 20:45 Dose: Not Given Magnesium Hydroxide (Milk Of Magnesia 30 Ml Oral.Susp) 30 ml PO DAILY PRN PRN Reason: Constipation Nicotine Polacrilex (Nicotine Polacrilex Lozenge 4 Mg Lozenge) 4 mg BUCCAL Q2H PRN PRN Reason: Nicotine Cravings Last Admin: 12/16/22 14:08 Dose: 4 mg Olanzapine (Olanzapine 5 Mg Tablet) 5 mg PO Q4H PRN PRN Reason: Psychosis Last Admin: 12/17/22 00:52 Dose: 5 mg Olanzapine (Olanzapine Odt 10 Mg Tab.Rapdis) 10 mg TRANSLINGU BEDTIME JAKE Last Admin: 12/17/22 20:41 Dose: 10 mg Thiamine HCl (Thiamine Hcl 100 Mg Tablet) 100 mg PO DAILY JAKE Last Admin: 12/18/22 08:59 Dose: 100 mg Allergies Allergies Allergy/AdvReac Type Severity Reaction Status Date / Time bupropion [From Wellbutrin] Allergy Unknown Verified 11/15/22 23:35 Assessment & Plan Assessment & Plan (1) Severe manic bipolar 1 disorder with psychotic behavior: Status: Acute Code(s): F31.2 - Bipolar disorder, current episode manic severe with psychotic features (2) History of alcohol use disorder: Status: Acute Code(s): Z87.898 - Personal history of other specified conditions Plan Patient is a 42 year old female with hx of bipolar d/o who self presented to [facility] ER after calling 911 and reporting she was in crisis . When arrived to ER, pt struggled to engage with staff and presented with mumbled speech. Collateral was obtained from and sister. Plan: CV 15 minute checks. Obtain collateral 11/17: Patient continues to have circumstantial thought content and paranoid delusions. Patient reports she want to live but knows if I have medications then I'll take them all . Patient reports she feels safe on the unit. Retracted 3 day. Will increase lithium and vraylar doses. Patient aware and is in agreement. 11/18: Dr. Obando and T/W met with patient and sister today. Pt continues with racing thoughts and circumstantial thought content. Denies suicidal ideation. [place] to be increased to 600mg PO BID; patient aware. CIWA D/C'd d/t scoring low and no withdrawal symptoms. calender worker helper to obtain records from [facility] with patients consent. 11/19: Patient reports difficulty sleeping. Continues with rapid speech, racing thoughts and circumstantial thought content. Signed 3 day last night, Patient reports she will retract on Tuesday if I don't feel better . Will add Seroquel at bedtime for sleep. seroquel added for insomnia monitor bp watch for s/e confusion with amlodipine lithium monitor creat watch for edema 11/20: No changes to current treatment regimen as Seroquel just added and patient declining any other changes 11/21: no changes- encourage current meds 11/22: Patient presents worsening in symptoms since Tuesday. Increased dis organization and paranoia; patient reports she has not slept. Ordered Ativan 2mg PO once, pt slept for 2.5 hours then woke up; Was then given Seroquel 50mg PO once; waiting on results. Patient retracted 3 day. Labs ordered, lithium level 0.83. Potassium 3.1; ordered hospitalist consult. UA pending. 11/23 pt appears delirious- if related to alcohol withdrawal, delirium tremens often seen> 96 hrs after last drink. Otherwise wondering if lithium. will hold lithium. give ativan 2mg and schedule ativan 2mg po qhs. d/c ambien. May need much higher doses if in DTs. 11/24: Patient continues disorganized, however presents with better insight. States she knows she is being delusional and not making sense . She was able to vocalize medications that have helped her in the past. D/C ativan; possibly rick bean her confused. Started on risperdal d/t patient reporting she had never tried. Agreed to trial. Risks/benefits discussed. Starting Depakote to assist in decreasing dannielle. T/W spoke to sister (Constanza); gave her update on patient's treatment plan. Sister expressed gratitude towards staff/communication. 11/25: Patient reports feeling better than yesterday. Continues to present disorganized; singing at times. Is able to have a logical conversation at times. Was given a one time dose of Haldol 5mg PO; pt continues to report she is not sleeping at night. Waiting on collateral from [facility] and [facility]. 11/26: Pt presents much approved today. Presents calm,with slower speech, not as accelerated. Pt stated, I feel better today; I slept . Continues to have disorganized thought process but is able to have logical conversations in- between the disorganization. Pt stated, my thoughts are very disorganized . Was able to attend meditation group. Continue with current tx plan. 11/27: more organized. still not sleeping. agreeable to increase VPA to 1000 mg daily and to reschedule all to HS. 11/28: slept about 3-4 hours last night. bizarrely repeatedly lowering herself to the floor in the past 24 H: i think i'm gonna fall. continue current mgmt for today. 11/29: slept 5 hours overnight, more fluid and spontaneous today, more organized. DC risperidone per pt request, start abilify. concern of weight gain. continue VPA 1000 mg QHS. 11/30: Pt reports mood is a lot better ; reports sleeping well last night but continues to feel tired. Would like a therapist who can focus on her trauma. Renny ontinmisty current tx plan. 12/01: 1:1 discontinued, placed on 5 minute checks. Pt reports feeling better and not paranoid . Continues with tangential thought content. Continues to not sleep well at night. Increased ammonia level;Will give lactulose, hold Depakote and increase Abilify to 10mg PO daily. Patient notified. 12/02: Pt continues to report not sleeping well. Ammonia level today is 26. Tricia ent notified. Lactulose will be decreased to once a day. Will restart Depakote 250mg PO BID and continue to monitor. Patient placed back on 15 minute safety checks. 12/03: Continues not sleeping well. Patient reports she does not feel as clear as yesterday . Tangential during 1:1. Patient focused on past trauma. Retracted 3 day. Started Klonopin 1mg PO bedtime. 12/04: Slept somewhat better per report. Consider increasing depakote but would need to recheck ammonia 12/05: recheck ammonia level. discontinue trazodone due to possible akathisia. Add PRN klonopin 12/06: Patient in one-to-one was less labile more organized remains quite disorganized in the milieu. Ammonia level now within normal limits on lactulose recheck ammonia in morning gradually increase Depakote as tolerated to therapeu tic levels may need increase in Abilify for manic doses has significant insomnia trazodone discontinued 12/07: Patient with variable periods of intense lability pressured speech disorganization and at times paranoia and fearfulness. Seeing meaning in different things feelings of derealization depersonalization fear in paranoia. Increase Depakote olanzapine p.r.n. history of past stabilizations on olanzapine and Depakote but did gain a significant amount of weight 12/08: Abilify 15 mg daily Seroquel 100 at bedtime increase Depakote check level and ammonia level in the morning encourage treatment compliance needs much reassurance and education 12/09: Increase Depakote to 1000 mg a day check ammonia level in the morning patient does have a history of being on Depakote and lithium with reported relatively good affect history of 1 prior manic psychotic episode greater than 15 years ago spoke with patient agreed to change Seroquel to olanzapine at bedtime hopefully will help retrain sleep continue Abilify 15 mg for now 12/11: Continue current plan. 12/12: Continue current treatment plan. 12/13: Pt presents with rapid speech, tangential thought process. States she is having a difficult time focusing. Pt reports she does not want to be labeled as bipolar because of the stigma . pt is trying to not take naps throughout the day to improve sleep at night. Plans on visiting with this afternoon. Ammonia level 26 today. 12/14: Patient stated, I can feel the Depakote stabilizing my mood . Patient reports she plans on trying to make a daily schedule for herself to keep her organized. Valporic acid level 67.4. Will increase Depakote to daily dose of 1250mg. 12/15: Patient feels her mood is stabilized . Would like to be discharged Tuesday; plans on attending PHP and following up without patient providers. Pt continues to have some rapid speech, but overall improving. Continue with current tx plan. 12/16: Patient reports increased anxiety d/t thoughts of going home and not having structure.Presents with rapid and pressured speech. Asked for discharged to be pushed til Tuesday before her PHP virtual intake. Plans on developing schedule for day to day schedule. Reports waking up throughout the night. Continue with current treatment plan. 12/17: Patient reports continued anxiety about going home. States she is trying to get organized to call various therapists and interview them . Valporic acid/liver panel/ammonia labs ordered for Tuesday. Plan for discharge Tuesday as long as patient continues to improve throughout weekend. Continue current tx plan. 12/18: Denies new symptoms, wants to go home. Reason for continued inpatient stay Substantial Risk for: inability to function, rapid decompensation and med/psych decompensation Time Spent With Patient Time: Total time managing care of this patient today _20___ minutes.
[2022-12-18] MEDS: Nicotine Polacrilex Lozenge 4 MG LOZENGE BUCCAL (20:05)
[2022-12-18 20:52] VITALS: BP 107/67; PULSE 76; RESP 18; TEMP 36.8; O2SAT 97
[2022-12-18] MEDS: Divalproex Sodium 250 MG TABLET.DR 750 MG PO (21:51)
[2022-12-18] MEDS: OLANZapine ODT 10 MG TAB.RAPDIS TRANSLINGU (21:51)
[2022-12-18] MEDS: clonazePAM 1 MG TABLET PO (21:52)
[2022-12-19] MEDS: Acetaminophen 325 MG TABLET 650 MG PO (03:00)
[2022-12-19] MEDS: cloNIDine HCL 0.1 MG TABLET PO ×2 (04:03→22:01)
[2022-12-19] MEDS: Divalproex Sodium 250 MG TABLET.DR PO ×2 (07:41→14:30)
[2022-12-19 07:42] LABS: Ammonia 26 umol/L (13-55)
[2022-12-19 07:47] LABS: Valproate 81.9 mcg/mL (50.0-100.0)
[2022-12-19 07:50] LABS: Alanine Aminotransferase 17 U/L (0-31); Albumin Level 3.5 g/dL (3.5-5.0); Alkaline Phosphatase 43 U/L (39-117); Aspartate Amino Transferase 15 U/L (5-31); Bilirubin Direct 0.1 mg/dL (0.0-0.5); Bilirubin Total 0.4 mg/dL (0.0-1.0); Total Protein 5.5 g/dL (6.5-8.0)
[2022-12-19 08:35] VITALS: BP 105/75; PULSE 77; RESP 18; TEMP 36.7
[2022-12-19] MEDS: Thiamine HCL 100 MG TABLET PO (08:49)
[2022-12-19] MEDS: ARIPiprazole 15 MG TABLET PO (08:49)
--- NOTE | 2022-12-19 10:36 | HO.PSYCHPN ---
Subjective Subjective Date of Service: 12/19/22 Reason For Visit: Bipolar Disorder Subjective Notes: Conditional Voluntary Interim History: The nursing staff reported the patient had been cooperative and compliant with medications. Easy to engage, she slept 6 hours. She has been anxious due to the her discharge tomorrow. On interview no new symptoms still anxious about the possibility of decompensation in the community. Anxious but redirectable Mental Status Exam Mental Status Exam Patient Appearance: Well Grooomed and Appropriate Patient Orientation: Person, Place and Situation Level of Consciousness: Awake and Appropriate Patient Behavior: Cooperative Mood Description: Calm Affect Description: Constricted Ability to Follow Directions: Good Speech Pattern: Clear Hallucinations: None Delusions: Not Present Thought Process: Linear Thought Content: positive for Circumstantial Judgement: Fair Diagnostics Vital Signs (24Hr): Vital Signs - 24 hr 12/18/22 20:52 Temperature 98.2 F Pulse Rate 76 Respiratory Rate 18 Blood Pressure 107/67 Pulse Oximetry 97 Oxygen Delivery Method Room Air BMI result Body Mass Index 22.2 Labs 12/14/22 09:24 12/16/22 08:35 Labs: Laboratory Results - last 48 hr 12/19/22 12/19/22 12/19/22 07:25 07:25 07:25 Total Bilirubin 0.4 Direct Bilirubin 0.1 AST 15 ALT 17 Alkaline Phosphatase 43 Ammonia 26 Total Protein 5.5 L Albumin 3.5 Valproic Acid 81.9 Medications Medications Current Medications Acetaminophen (Acetaminophen 325 Mg Tablet) 650 mg PO Q6H PRN PRN Reason: Headache/Pain Mild Scale (1-3) Last Admin: 12/19/22 03:00 Dose: 650 mg Al Hydroxide/Mg Hydroxide (Magnesium Hydrox/Alum Hydrox 30 Ml Oral.Susp) 30 ml PO Q6H PRN PRN Reason: Heartburn/Nausea Last Admin: 12/16/22 10:11 Dose: 30 ml Amlodipine Besylate (Amlodipine Besylate 10 Mg Tablet) 10 mg PO DAILY JAKE; Protocol Last Admin: 12/19/22 08:49 Dose: Not Given Aripiprazole (Aripiprazole 15 Mg Tablet) 15 mg PO DAILY JAKE Last Admin: 12/19/22 08:49 Dose: 15 mg Clonazepam (Clonazepam 1 Mg Tablet) 1 mg PO BEDTIME JAKE Last Admin: 12/18/22 21:52 Dose: 1 mg Clonidine HCl (Clonidine Hcl 0.1 Mg Tablet) 0.1 mg PO TID PRN; Protocol PRN Reason: Anxiety Last Admin: 12/19/22 04:03 Dose: 0.1 mg Clonidine HCl (Clonidine Hcl 0.1 Mg Tablet) 0.1 mg PO BEDTIME JAKE; Protocol Last Admin: 12/18/22 21:51 Dose: 0.1 mg Divalproex Sodium (Divalproex Sodium 250 Mg Tablet.) 250 mg PO BID@0830,1430 [facility] Last Admin: 12/19/22 07:41 Dose: 250 mg Divalproex Sodium (Divalproex Sodium 250 Mg Tablet.) 750 mg PO BEDTIME JAKE Last Admin: 12/18/22 21:51 Dose: 750 mg Lactulose (Lactulose 20 Gm/30 Ml Solution) 15 gm PO BEDTIME JAKE Last Admin: 12/18/22 22:10 Dose: Not Given Magnesium Hydroxide (Milk Of Magnesia 30 Ml Oral.Susp) 30 ml PO DAILY PRN PRN Reason: Constipation Nicotine Polacrilex (Nicotine Polacrilex Lozenge 4 Mg Lozenge) 4 mg BUCCAL Q2H PRN PRN Reason: Nicotine Cravings Last Admin: 12/18/22 20:05 Dose: 4 mg Olanzapine (Olanzapine 5 Mg Tablet) 5 mg PO Q4H PRN PRN Reason: Psychosis Last Admin: 12/17/22 00:52 Dose: 5 mg Olanzapine (Olanzapine Odt 10 Mg Tab.Rapdis) 10 mg TRANSLINGU BEDTIME JAKE Last Admin: 12/18/22 21:51 Dose: 10 mg Thiamine HCl (Thiamine Hcl 100 Mg Tablet) 100 mg PO DAILY JAKE Last Admin: 12/19/22 08:49 Dose: 100 mg Allergies Allergies Allergy/AdvReac Type Severity Reaction Status Date / Time bupropion [From Wellbutrin] Allergy Unknown Verified 11/15/22 23:35 Assessment & Plan Assessment & Plan (1) Severe manic bipolar 1 disorder with psychotic behavior: Status: Acute Code(s): F31.2 - Bipolar disorder, current episode manic severe with psychotic features (2) History of alcohol use disorder: Status: Acute Code(s): Z87.898 - Personal history of other specified conditions Plan Patient is a 42 year old female with hx of bipolar d/o who self presented to [facility] ER after calling 911 and reporting she was in crisis . When arrived to ER, pt struggled to engage with staff and presented with mumbled speech. Collateral was obtained from and sister. Plan: CV 15 minute checks. Obtain collateral 11/17: Patient continues to have circumstantial thought content and paranoid delusions. Patient reports she want to live but knows if I have medications then I'll take them all . Patient reports she feels safe on the unit. Retracted 3 day. Will increase lithium and vraylar doses. Patient aware and is in agreement. 11/18: Dr. Obando and T/W met with patient and sister today. Pt continues with racing thoughts and circumstantial thought content. Denies suicidal ideation. [place] to be increased to 600mg PO BID; patient aware. CIWA D/C'd d/t scoring low and no withdrawal symptoms. greenhouse worker to obtain records from [facility] with patients consent. 11/19: Patient reports difficulty sleeping. Continues with rapid speech, racing thoughts and circumstantial thought content. Signed 3 day last night, Patient reports she will retract on Tuesday if I don't feel better . Will add Seroquel at bedtime for sleep. seroquel added for insomnia monitor bp watch for s/e confusion with amlodipine lithium monitor creat watch for edema 11/20: No changes to current treatment regimen as Seroquel just added and patient declining any other changes 11/21: no changes- encourage current meds 11/22: Patient presents worsening in symptoms since Tuesday. Increased disorganization and paranoia; patient reports she has not slept. Ordered Ativan 2mg PO once, pt slept for 2.5 hours then woke up; Was then given Seroquel 50mg PO once; waiting on results. Patient retracted 3 day. Labs ordered, lithium level 0.83. Potassium 3.1; ordered hospitalist consult. UA pending. 11/23 pt appears delirious- if related to alcohol withdrawal, delirium tremens often seen> 96 hrs after last drink. Otherwise wondering if lithium. will hold lithium. give ativan 2mg and schedule ativan 2mg po qhs. d/c ambien. May need much higher doses if in DTs. 11/24: Patient continues disorganized, however presents with better insight. States she knows she is being delusional and not making sense . She was able to vocalize medications that have helped her in the past. D/C ativan; possibly making her confused. Started on risperdal d/t patient reporting she had never tried. Agreed to trial. Risks/benefits discussed. Starting Depakote to assist in decreasing dannielle. T/W spoke to sister (Constanza); gave her update on patient's treatment plan. Sister expressed gratitude towards staff/communication. 11/25: Patient reports feeling better than yesterday. Continues to present disorganized; singing at times. Is able to have a logical conversation at times. Was given a one time dose of Haldol 5mg PO; pt continues to report she is not sleeping at night. Waiting on collateral from [facility] and [facility]. 11/26: Pt presents much approved today. Presents calm,with slower speech, not as accelerated. Pt stated, I feel better today; I slept . Continues to have disorganized thought process but is able to have logical conversations in-between the disorganization. Pt stated, my thoughts are very disorganized . Was able to attend meditation group. Continue with current tx plan. 11/27: more organized. still not sleeping. agreeable to increase VPA to 1000 mg daily and to reschedule all to HS. 11/28: slept about 3-4 hours last night. bizarrely repeatedly lowering herself to the floor in the past 24 H: i think i'm gonna fall. continue current mgmt for today. 11/29: slept 5 hours overnight, more fluid and spontaneous today, more organized. DC risperidone per pt request, start abilify. concern of weight gain. continue VPA 1000 mg QHS. 11/30: Pt reports mood is a lot better ; reports sleeping well last night but continues to feel tired. Would like a therapist who can focus on her trauma. Continue current tx plan. 12/01: 1:1 discontinued, placed on 5 minute checks. Pt reports feeling better and not paranoid . Continues with tangential thought content. Continues to not sleep well at night. Increased ammonia level;Will give lactulose, hold Depakote and increase Abilify to 10mg PO daily. Patient notified. 12/02: Pt continues to report not sleeping well. Ammonia level today is 26. Patient notified. Lactulose will be decreased to once a day. Will restart Depakote 250mg PO BID and continue to monitor. Patient placed back on 15 minute safety checks. 12/03: Continues not sleeping well. Patient reports she does not feel as clear as yesterday . Tangential during 1:1. Patient focused on past trauma. Retracted 3 day. Started Klonopin 1mg PO bedtime. 12/04: Slept somewhat better per report. Consider increasing depakote but would need to recheck ammonia 12/05: recheck ammonia level. discontinue trazodone due to possible akathisia. Add PRN klonopin 12/06: Patient in one-to-one was less labile more organized remains quite disorganized in the milieu. Ammonia level now within normal limits on lactulose recheck ammonia in morning gradually increase Depakote as tolerated to therapeutic levels may need increase in Abilify for manic doses has significant insomnia trazodone discontinued 12/07: Patient with variable periods of intense lability pressured speech disorganization and at times paranoia and fearfulness. Seeing meaning in different things feelings of derealization depersonalization fear in paranoia. Increase Depakote olanzapine p.r.n. history of past stabilizations on olanzapine and Depakote but did gain a significant amount of weight 12/08: Abilify 15 mg daily Seroquel 100 at bedtime increase Depakote check level and ammonia level in the morning encourage treatment compliance needs much reassurance and education 12/09: Increase Depakote to 1000 mg a day check ammonia level in the morning patient does have a history of being on Depakote and lithium with reported relatively good affect history of 1 prior manic psychotic episode greater than 15 years ago spoke with patient agreed to change Seroquel to olanzapine at bedtime hopefully will help retrain sleep continue Abilify 15 mg for now 12/11: Continue current plan. 12/12: Continue current treatment plan. 12/13: Pt presents with rapid speech, tangential thought process. States she is having a difficult time focusing. Pt reports she does not want to be labeled as bipolar because of the stigma . pt is trying to not take naps throughout the day to improve sleep at night. Plans on visiting with this afternoon. Ammonia level 26 today. 12/14: Patient stated, I can feel the Depakote stabilizing my mood . Patient reports she plans on trying to make a daily schedule for herself to keep her organized. Valporic acid level 67.4. Will increase Depakote to daily dose of 1250mg. 12/15: Patient feels her mood is stabilized . Would like to be discharged Tuesday; plans on attending PHP and following up without patient providers. Pt continues to have some rapid speech, but overall improving. Continue with current tx plan. 12/16: Patient reports increased anxiety d/t thoughts of going home and not having structure.Presents with rapid and pressured speech. Asked for discharged to be pushed til Tuesday before her PHP virtual intake. Plans on developing schedule for day to day schedule. Reports waking up throughout the night. Continue with current treatment plan. 12/17: Patient reports continued anxiety about going home. States she is trying to get organized to call various therapists and interview them . Valporic acid/liver panel/ammonia labs ordered for Tuesday. Plan for discharge Tuesday as long as patient continues to improve throughout weekend. Continue current tx plan. 12/18: Denies new symptoms, wants to go home. 12/02 denies new symptoms anxious for discharge tomorrow. Reason for continued inpatient stay Substantial Risk for: inability to function, rapid decompensation and med/psych decompensation Time Spent With Patient Time: Total time managing care of this patient today __20__ minutes.
[2022-12-19] MEDS: Nicotine Polacrilex Lozenge 4 MG LOZENGE BUCCAL (14:17)
[2022-12-19 20:20] VITALS: BP 126/84; PULSE 81; RESP 18; TEMP 36.6; O2SAT 99
[2022-12-19] MEDS: Lactulose 20 GM/30 ML SOLUTION 15 GM PO (21:59)
[2022-12-19] MEDS: clonazePAM 1 MG TABLET PO (22:01)
[2022-12-19] MEDS: Divalproex Sodium 250 MG TABLET.DR 750 MG PO (22:01)
[2022-12-19] MEDS: OLANZapine ODT 10 MG TAB.RAPDIS TRANSLINGU (22:02)
[2022-12-20] MEDS: cloNIDine HCL 0.1 MG TABLET PO (01:03)
[2022-12-20 08:28] VITALS: BP 126/82; PULSE 70; RESP 20; TEMP 36.1; O2SAT 99
[2022-12-20] MEDS: Thiamine HCL 100 MG TABLET PO (08:29)
[2022-12-20] MEDS: ARIPiprazole 15 MG TABLET PO (08:30)
[2022-12-20] MEDS: amLODIPine Besylate 10 MG TABLET PO (08:30)
[2022-12-20] MEDS: Divalproex Sodium 250 MG TABLET.DR PO (08:30)
--- NOTE | 2022-12-20 08:49 | PM.PSYDC ---
DS: Providers Provider Date of Service: 12/20/22 Date of admission: 11/15/22 19:52 Date of discharge: 12/20/22 Primary care physician: Unknown Physician Admitting clinician: Rebekah Gee Attending physician on admission: Gordon Obando Consults: 11/15/22 20:42 Consult to Hospitalist Routine Comment: Consulting Provider: Hospitalist Reason For Exam: Direct admission 11/22/22 11:51 Consult to Hospitalist Routine Comment: Consulting Provider: Hospitalist Reason For Exam: Low Potassium Attending physician on discharge: Gordon Obando Discharging clinician: Rebekah Gee DS: Diagnosis Discharge Diagnosis (1) Severe manic bipolar 1 disorder with psychotic behavior: Status: Acute (2) History of alcohol use disorder: Status: Acute DS: Medications Discharge Medications Home Medications: Previous Rx's Medication Instructions Recorded amlodipine 10 mg tablet 10 mg PO DAILY 30 days #30 tabs 12/20/22 aripiprazole 15 mg tablet 15 mg PO DAILY 30 days #30 tabs 12/20/22 clonazepam 1 mg tablet 1 mg PO BEDTIME 30 days #30 tabs 12/20/22 clonidine HCl 0.1 mg tablet 0.1 mg PO BEDTIME 30 days #30 tabs 12/20/22 clonidine HCl 0.1 mg tablet 0.1 mg PO TID PRN Anxiety 30 days 12/20/22 #90 tabs divalproex 250 mg tablet,delayed 250 mg PO BID@0830,1430 30 days 12/20/22 release #60 tabs divalproex 250 mg tablet,delayed 750 mg PO BEDTIME 30 days #90 tabs 12/20/22 release lactulose 20 gram/30 mL oral 15 g (22.5 mL) PO BEDTIME 30 days 12/20/22 solution #675 mL olanzapine 10 mg disintegrating 10 mg translingual BEDTIME 30 days 12/20/22 tablet #30 tabs Mental Status Exam Mental Status Exam Narrative: Pt is alert and oriented; behavior is cooperative, friendly and calm; patient is not in distress; dressed in casual attire; mood is described as good ; eye contact appropriate; Speech is normal rate, volume and prosody and not pressured; no psychomotor agitation/retardation present; thought process is organized and goal directed; Thought content is on discharge; otherwise pertinent to relevant topics and without any delusional content, paranoid ideations or grandiosity; denies any SI/HI. There is no evidence of perceptual disturbance. Patients insight and judgment are fair. Data Data Completed and Pending Completed studies during hospitalization [Text1]: 12/13/22 12/14/22 12/14/22 10:31 09:24 09:25 WBC 4.4 L RBC 4.39 Hgb 13.1 Hct 41.2 MCV 93.8 MCH 29.8 MCHC 31.8 RDW 13.5 Plt Count 225 MPV 9.5 Immature Gran % (Auto) 0.5 H Neut % (Auto) 49.7 Lymph % (Auto) 36.1 [place] % (Auto) 11.4 H Eos % (Auto) 1.8 Baso % (Auto) 0.5 Lymph # (Auto) 1.6 [place] # (Auto) 0.5 Eos # (Auto) 0.1 Baso # (Auto) 0.0 Abs Immat Gran (auto) 0.02 Absolute Neuts (auto) 2.2 Absolute Nucleated RBC 0.000 Nucleated RBC % (auto) 0.0 Sodium Potassium Chloride Carbon Dioxide Anion Gap BUN Creatinine Estim Creat Clear Calc Estimated GFR Fasting Glucose Calcium Total Bilirubin Direct Bilirubin AST ALT Alkaline Phosphatase Ammonia 26 Total Protein Albumin Valproic Acid 67.4 12/14/22 12/16/22 12/16/22 10:30 08:35 08:35 WBC RBC Hgb Hct MCV MCH MCHC RDW Plt Count MPV Immature Gran % (Auto) Neut % (Auto) Lymph % (Auto) [place] % (Auto) Eos % (Auto) Baso % (Auto) Lymph # (Auto) [place] # (Auto) Eos # (Auto) Baso # (Auto) Abs Immat Gran (auto) Absolute Neuts (auto) Absolute Nucleated RBC Nucleated RBC % (auto) Sodium 141 Potassium 4.0 Chloride 110 H Carbon Dioxide 21 L Anion Gap 14 BUN 15 Creatinine 0.73 Estim Creat Clear Calc 74.2 Estimated GFR > 60 Fasting Glucose 116 H Calcium 8.6 D Total Bilirubin 0.4 Direct Bilirubin AST 15 ALT 18 Alkaline Phosphatase 49 Ammonia 20 27 Total Protein 5.9 L Albumin 3.8 Valproic Acid 12/16/22 12/19/22 12/19/22 08:35 07:25 07:25 WBC RBC Hgb Hct MCV MCH MCHC RDW Plt Count MPV Immature Gran % (Auto) Neut % (Auto) Lymph % (Auto) [place] % (Auto) Eos % (Auto) Baso % (Auto) Lymph # (Auto) [place] # (Auto) Eos # (Auto) Baso # (Auto) Abs Immat Gran (auto) Absolute Neuts (auto) Absolute Nucleated RBC Nucleated RBC % (auto) Sodium Potassium Chloride Carbon Dioxide Anion Gap BUN Creatinine Estim Creat Clear Calc Estimated GFR Fasting Glucose Calcium Total Bilirubin 0.4 Direct Bilirubin 0.1 AST 15 ALT 17 Alkaline Phosphatase 43 Ammonia 26 Total Protein 5.5 L Albumin 3.5 Valproic Acid 78.4 12/19/22 07:25 WBC RBC Hgb Hct MCV MCH MCHC RDW Plt Count MPV Immature Gran % (Auto) Neut % (Auto) Lymph % (Auto) [place] % (Auto) Eos % (Auto) Baso % (Auto) Lymph # (Auto) [place] # (Auto) Eos # (Auto) Baso # (Auto) Abs Immat Gran (auto) Absolute Neuts (auto) Absolute Nucleated RBC Nucleated RBC % (auto) Sodium Potassium Chloride Carbon Dioxide Anion Gap BUN Creatinine Estim Creat Clear Calc Estimated GFR Fasting Glucose Calcium Total Bilirubin Direct Bilirubin AST ALT Alkaline Phosphatase Ammonia Total Protein Albumin Valproic Acid 81.9 11/24/22 11:00 Urine clean catch - Urine davies top Urine Culture - Final Strep agalactiae (Grp B) DS: Summary Hospital Course Hospital Course: Patient is a 42 year old female with hx of bipolar d/o who self presented to [facility] ER after calling 911 and reporting she was in crisis . When arrived to ER, pt struggled to engage with staff and presented with mumbled speech. Collateral was obtained from and sister. T/W and health care social worker met with patient for admission assessment. Patient presents as calm and cooperative but tearful. She admits to drinking ETOH in excess. (5-6 beers a day); Patient stated, I don't think anything is wrong with me. I have unprocessed trauma and need CBT and DBT. I'm a co-dependent narcissist. Patient reports she has always been paranoid . Patient asked if there was a recording device in the room. Patient reports having suicidal ideation. Patient stated, I don't want to be given medication because I would take them all and try to sleep forever . Patient denies HI/VH/AH at this time. T/W spoke with patients (Kalyan). Per pt's (Kalyan); pt recently had ECT treatment at [facility], last of which was 10/29/22, he believes this contributed to her manic episode. He reports over the last 2 weeks patient has become paranoid and accusing her of conspiring with her therapist to keep her sick . He reports she has never attempted suicide but has always made suicidal statements. Patient has been psychiatrically hospitalized twice. Pt has a hx of bipolar d/o and has struggled to accept her dx; has been resistant to medications and treatment. Patient reports positive effects when patient was on lithium in the past. Patient was started on lithium and vraylar. Dr. Obando and T/W met with patient and sister. Pt continued with racing thoughts and circumstantial thought content. Eclectic increased to 600mg PO BID; patient aware. CIWA D/C'd d/t scoring low and no withdrawal symptoms. hops farmworker to obtain records from [facility] with patients consent. Patient reports difficulty sleeping. Signed 3 day last night, Patient reports she will retract on Tuesday if I don't feel better . Will add Seroquel at bedtime for sleep; seroquel added for insomnia monitor bp watch for s/e confusion with amlodipine lithium monitor creat watch for edema. Patient presented worsening in symptoms; Increased disorganization and paranoia; patient reports she has not slept. Ordered Ativan 2mg PO once, pt slept for 2.5 hours then woke up; Was then given Seroquel 50mg PO once; waiting on results. Patient retracted 3 day. Labs ordered, lithium level 0.83. Potassium 3.1; ordered hospitalist consult. UA pending. pt appears delirious- if related to alcohol withdrawal, delirium tremens often seen> 96 hrs after last drink. Otherwise wondering if lithium. will hold lithium. give ativan 2mg and schedule ativan 2mg po qhs. d/c ambien. May need much higher doses if in DTs. Patient continues disorganized, however presents with better insight. States she knows she is being delusional and not making sense . She was able to vocalize medications that have helped her in the past. D/C ativan; possibly making her confused. Started on risperdal d/t patient reporting she had never tried. Agreed to trial. Risks/benefits discussed. Starting Depakote to assist in decreasing dannielle. T/W spoke to sister (Constanza); gave her update on patient's treatment plan. Sister expressed gratitude towards staff/communication. Patient continued to present disorganized; singing at times. Is able to have a logical conversation at times. Was given a one time dose of Haldol 5mg PO; pt continues to report she is not sleeping at night. Pt presents much approved today. Presents calm,with slower speech, not as accelerated. Pt stated, I feel better today; I slept . Continues to have disorganized thought process but is able to have logical conversations in-between the disorganization. Pt stated, my thoughts are very disorganized . Was able to attend meditation group. Pt reports still not sleeping; agreeable to increase VPA to 1000 mg daily and to reschedule all to HS. Bizarrely repeatedly lowering herself to the floor in the past 24 H: i think i'm gonna fall. Patient slept 5 hours overnight, more fluid and spontaneous, more organized. DC risperidone per pt request, start abilify. 1:1 discontinued, placed on 5 minute checks. Pt reports feeling better and not paranoid . Continues with tangential thought content. Continues to not sleep well at night. Increased ammonia level;Will give lactulose, hold Depakote and increase Abilify to 10mg PO daily. Patient notified. Ammonia level decreased to 26. Patient notified. Lactulose will be decreased to once a day. Will restart Depakote 250mg PO BID and continue to monitor. Patient placed back on 15 minute safety checks. Patient reports she does not feel as clear as yesterday . Tangential during 1:1. Patient focused on past trauma. Retracted 3 day. Started Klonopin 1mg PO bedtime. Discontinue trazodone due to possible akathisia. Add PRN klonopin Patient presents with variable periods of intense lability pressured speech disorganization and at times paranoia and fearfulness. Seeing meaning in different things feelings of derealization depersonalization fear in paranoia. Increase Depakote, olanzapine p.r.n. history of past stabilizations on olanzapine and Depakote but did gain a significant amount of weight Increased Depakote to 1000 mg a day check ammonia level. patient does have a history of being on Depakote and lithium with reported relatively good affect history of 1 prior manic psychotic episode greater than 15 years ago spoke with patient agreed to change Seroquel to olanzapine at bedtime hopefully will help retrain sleep continue Abilify 15 mg for now. Pt reports she does not want to be labeled as bipolar because of the stigma . pt is trying to not take naps throughout the day to improve sleep at night. Patient stated, I can feel the Depakote stabilizing my mood . Patient reports she plans on trying to make a daily schedule for herself to keep her organized. Valporic acid level 67.4. Will increase Depakote to daily dose of 1250mg. Patient feels her mood is stabilized . Would like to be discharged Tuesday; plans on attending PHP and following up without patient providers. Pt continues to have some rapid speech, but overall improving. Patient reports increased anxiety d/t thoughts of going home and not having structure. Asked for discharged to be pushed til Tuesday before her PHP virtual intake. Plans on developing schedule for day to day schedule. States she is trying to get organized to call various therapists and interview them . Valporic acid/liver panel/ammonia labs ordered for Tuesday. Plan for discharge Tuesday as long as patient continues to improve throughout weekend. Denies new symptoms, wants to go home. Patient was discharged home and was picked up by parents. Plans to follow up with outpatient providers. Time spent discussing smoking cessation with patient: 3 to 10 minutes Status at Discharge Cognitive/behavioral status at discharge: Patient was interviewed prior to discharge and found to be fully oriented and without any SI or HI. Patient has insight and demonstrates good judgment in terms of wanting to pursue treatment. Patient is not in imminent risk of harm to self or others and has a safety plan that includes presenting to the closest ER or calling 911 if feeling unsafe. Patient has been observed closely by nursing and unit staff throughout admission; patient has not engaged in any behaviors that suggest dangerousness to self or others and has demonstrated appropriate behaviors and impulse control. Functional status at discharge: independent ambulation Overall status at discharge: patient is back to baseline Time Spent with Patient Time attestation: Total time managing care of this patient today _30___ minutes. Time spent: Less than 30 minutes Discharge Plan Discharge Anticipated Discharge Date/Time: 12/20/22 09:30 Patient Disposition: Home, Self-Care Discharge Diagnosis: Bipolar D/O, ETOH abuse Referrals: [facility] (virtual) [Other] - 12/20/22 12:00 pm (Intake appointment virtual TuesdayDecember 20 at 12:00pm) [facility] [Other] - 1 Week (Patient needs to call intake(number provided to patient) and complete intake directly for psychiatry. ) Discharge Medications: New amlodipine 10 mg Tablet 10 mg PO DAILY 30 Days Qty: 30 0RF Protocol: Hold for SBP< HOLD for SBP < : 90 clonidine HCl 0.1 mg Tablet 0.1 mg PO BEDTIME 30 Days Qty: 30 0RF Protocol: Hold for SBP< HOLD for SBP < : 90 aripiprazole 15 mg Tablet 15 mg PO DAILY 30 Days Qty: 30 0RF clonazepam 1 mg Tablet 1 mg PO BEDTIME 30 Days Qty: 30 0RF divalproex 250 mg Tablet,Delayed Release (Dr/Ec) 250 mg PO BID@0830,1430 30 Days Qty: 60 0RF divalproex 250 mg Tablet,Delayed Release (Dr/Ec) 750 mg PO BEDTIME 30 Days Qty: 90 0RF olanzapine 10 mg Tablet,Disintegrating 10 mg translingual BEDTIME 30 Days Qty: 30 0RF lactulose 20 gram/30 mL Solution 15 g PO BEDTIME 30 Days Qty: 675 0RF clonidine HCl 0.1 mg Tablet 0.1 mg PO TID PRN (Reason: Anxiety) 30 Days Qty: 90 0RF Protocol: Hold for SBP< HOLD for SBP < : 90 Discharge Orders: Discharge Order (Routine); Ordered 12/20/22 Ordered By: Rebekah Gee Diet: Regular diet Activity on Discharge: As tolerated Stand Alone Forms: Patient Portal Discharge page, Community Support Care Plan Goals: Maintain mood and safe behaviors Take medications as prescribed Continue to pursue sobriety Practice coping skills Continue with outpatient providers and reach out to them as needed Health Concerns: Mood stability and behaviors Sobriety Plan of Treatment: Follow up with your PCP, psychiatric provider and other outpatient providers regarding above concerns Take medications as prescribed Assessment: Patient was interviewed prior to discharge and found to be fully oriented and without any SI or HI. Patient has insight and demonstrates good judgment in terms of wanting to pursue treatment. Patient is not in imminent risk of harm to self or others and has a safety plan that includes presenting to the closest ER or calling 911 if feeling unsafe. Patient has been observed closely by nursing and unit staff throughout admission; patient has not engaged in any behaviors that suggest dangerousness to self or others and has demonstrated appropriate behaviors and impulse control. Discharge Date/Time: 12/20/22 10:10
== END 2022-12-20 10:10 | disposition home or self-care (01) | DRG 753 ==
PROVIDERS: Physician Assistant; Psychiatry & Neurology Psychiatry; Admitting Provider Psychiatry & Neurology Psychiatry; Responsible Provider Registered Nurse; Visit Provider Psychiatry & Neurology Psychiatry
DX: F31.2 Bipolar disorder, current episode manic severe with psychotic features (principal); F05 Delirium due to known physiological condition; I10 Essential (primary) hypertension; F17.210 Nicotine dependence, cigarettes, uncomplicated; Z71.6 Tobacco abuse counseling; F43.10 Post-traumatic stress disorder, unspecified; E87.6 Hypokalemia; Z79.899 Other long term (current) drug therapy
CPT/HCPCS: 36415; 80048; 80051; 80053; 80061; 80076; 80164; 80178; 81001; 81003; 82140; 82565; 83036; 83735; 84443; 84520; 85025; 87086; 87147

== ENCOUNTER → 2022-11-15 19:52 | Outpatient (BNV) | payer BC, SELFPAY | PROVIDERS: Admitting Provider Psychiatry & Neurology Psychiatry; Responsible Provider Psychiatry & Neurology Psychiatry; Visit Provider Registered Nurse | DX: F31.9 Bipolar disorder, unspecified (principal) | CPT/HCPCS: 90792; 99231; 99232; 99238 ==

== ENCOUNTER → 2022-11-15 19:52 | Outpatient (BNV) | payer BC, SELFPAY | PROVIDERS: Admitting Provider Psychiatry & Neurology Psychiatry; Responsible Provider Registered Nurse; Visit Provider Psychiatry & Neurology Psychiatry | DX: F31.2 Bipolar disorder, current episode manic severe with psychotic features (principal); F10.90 Alcohol use, unspecified, uncomplicated | CPT/HCPCS: 99232 ==